=== PATIENT | female | born 1955 | race Caucasian/White ===

== ENCOUNTER → 2017-10-07 15:06 | Outpatient (CLI) | payer OTHER, SELFPAY ==
--- NOTE | 2017-10-07 | DI.MG.S_ITS ---
BILATERAL DIGITAL SCREENING MAMMOGRAM 3D/2D WITH CAD: 10/07/2017 CLINICAL: Routine screening. Family history of breast cancer. Comparison is made to exams dated: 09/11/2016 mammogram - [facility], 08/03/2015 mammogram, and 08/05/2014 mammogram - [facility]. There are scattered fibroglandular elements in both breasts. Current study was also evaluated with a Computer Aided Detection (CAD) system. No significant masses, calcifications, or other findings are seen in either breast. There has been no significant interval change. IMPRESSION: NEGATIVE There is no mammographic evidence of malignancy. A 1 year screening mammogram is recommended. This exam was interpreted at Station ID: [id number]. NOTE: For mammograms, a report in lay terms will be sent to the patient. Approximately 15% of breast malignancies will not be visualized mammographically. In the management of a palpable breast mass, a negative mammogram must not discourage biopsy of a clinically suspicious lesion. Electronically Signed By: Arun valiente/china:10/08/2017 14:35:24 letter sent: Normal Exam ACR BI-RADS Category 1: Negative [id number]
== END ==
PROVIDERS: Family Provider Family Medicine; PCP Family Medicine; Visit Provider Family Medicine
DX: Z12.31 Encounter for screening mammogram for malignant neoplasm of breast (principal); Z80.3 Family history of malignant neoplasm of breast
CPT/HCPCS: 77063; 77067

== ENCOUNTER → 2017-10-09 09:34 | Outpatient (CLI) | payer OTHER, SELFPAY ==
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
== END ==
PROVIDERS: Family Provider Neurological Surgery; PCP Family Medicine; Visit Provider Family Medicine
DX: M54.2 Cervicalgia (principal); M25.512 Pain in left shoulder; M25.511 Pain in right shoulder; M46.82 Other specified inflammatory spondylopathies, cervical region
CPT/HCPCS: 72141

== ENCOUNTER → 2018-05-04 06:54 | Outpatient (CLI) | payer OTHER, SELFPAY ==
[2018-05-04 08:40] LABS: Add Manual Diff / Slide Review NO; Basophils Absolute Auto 0 /uL (0-100); Basophils Percent Auto 0.8 % (0-2); Eosinophils Absolute Auto 100 /uL (0-450); Eosinophils Percent Auto 2.2 % (2-4); Hematocrit 40.6 % (36-46); Hemoglobin 13.3 g/dL (12.0-16.0); Lymphocytes Absolute Auto 2700 /uL (1100-4500); Lymphocytes Percent Auto 46.5 % (25-40); Mean Corpuscular HGB Conc 32.8 % (30-36); Mean Corpuscular Hemoglobin 30.6 PG (26-34); Mean Corpuscular Volume 93.1 fL (80-100); Monocytes Absolute Auto 400 /uL (0-900); Monocytes Percent Auto 6.4 % (3-14); Neutrophils Absolute Auto 2600 /uL (1500-7000); Neutrophils Percent Auto 44.1 % (50-75); Platelet Count 237 X10^3/uL (150-400); Red Blood Cell Count 4.36 X10^6/uL (4.0-5.2); Red Cell Distribution Width 12.5 % (11.6-14.8); White Blood Cell Count 5.9 X10^3/uL (4.5-11.0)
[2018-05-04 08:53] LABS: Alanine Aminotransferase 45 IU/L (9-52); Albumin 4.7 g/dL (3.5-5.0); Albumin Globulin Ratio 1.9 (1.0-2.8); Alkaline Phosphatase 45 U/L (38-126); Aspartate Aminotransferase 41 IU/L (14-36); BUN Creatinine Ratio 24.4 (6-22); Bilirubin Total 0.3 mg/dL (0.2-1.3); Blood Urea Nitrogen 22 mg/dL (7-17); Calcium 9.7 mg/dL (8.4-10.2); Carbon Dioxide 24 mmol/L (22-32); Chloride 104 mmol/L (98-107); Cholesterol 210 mg/dL (140-199); Estimated Glomerular Filt Rate > 60.0 mL/min (>60); Globulin 2.5 g/dL (1.7-4.1); Glucose 76 mg/dL (80-110); HDL Cholesterol 68 mg/dL (40-60); HEMOLYSIS < 15 (0-50); LDL Cholesterol Calculated 124 mg/dL (<100); Sodium 139 mmol/L (137-145); Total Protein 7.2 g/dL (6.3-8.2); Triglycerides 91 mg/dL (35-150)
== END ==
PROVIDERS: PCP Family Medicine; Visit Provider Family Medicine
DX: Z00.00 Encounter for general adult medical examination without abnormal findings (principal); Z13.220 Encounter for screening for lipoid disorders
CPT/HCPCS: 36415; 80053; 80061; 85025

== ENCOUNTER → 2018-10-13 10:46 | Outpatient (CLI) | payer OTHER, SELFPAY ==
--- NOTE | 2018-10-13 | DI.MG.S_ITS ---
BILATERAL DIGITAL SCREENING MAMMOGRAM 3D/2D WITH CAD: 10/13/2018 CLINICAL: Routine screening. Family history of breast cancer. Comparison is made to exams dated: 10/07/2017 mammogram, 09/11/2016 mammogram - [facility], and 08/03/2015 mammogram - [facility]. There are scattered fibroglandular elements in both breasts. Current study was also evaluated with a Computer Aided Detection (CAD) system. No significant masses, calcifications, or other findings are seen in either breast. There has been no significant interval change. IMPRESSION: NEGATIVE There is no mammographic evidence of malignancy. A 1 year screening mammogram is recommended. This exam was interpreted at Station ID: [id number]. NOTE: For mammograms, a report in lay terms will be sent to the patient. Approximately 15% of breast malignancies will not be visualized mammographically. In the management of a palpable breast mass, a negative mammogram must not discourage biopsy of a clinically suspicious lesion. Electronically Signed By: Marcie trevino/china:10/13/2018 11:58:29 letter sent: Normal Exam ACR BI-RADS Category 1: Negative [id number]
== END ==
PROVIDERS: PCP Family Medicine; Visit Provider Family Medicine
DX: Z12.31 Encounter for screening mammogram for malignant neoplasm of breast (principal); Z80.3 Family history of malignant neoplasm of breast
CPT/HCPCS: 77063; 77067

== ENCOUNTER → 2018-10-15 15:39 | Outpatient (CLI) | payer OTHER, SELFPAY ==
--- NOTE | 2018-10-15 15:44 | DI.RAD.S_ITS ---
PROCEDURE: XR SACRUM COCCYX MIN 2V INDICATIONS: pain TECHNIQUE: 3 views of the sacrum and coccyx acquired. COMPARISON: [facility], CR, XR LUMBAR SPINE 2-3V, 10/15/2018, 15:47. FINDINGS: Bones: No fractures or dislocations. No suspicious bony lesions. Symmetric moderate SI joint degeneration bilaterally. No ankylosis. Soft tissues: Visualized bowel gas pattern is normal. No suspicious soft tissue densities. IMPRESSION: 1. No acute bony abnormalities. 2. Moderate degenerative joint disease in sacroiliac joints bilaterally. Dictated by: Gi Elizabeth M.D. on 10/15/2018 at 16:51 Approved by: Gi Elizabeth M.D. on 10/15/2018 at 21:48
--- NOTE | 2018-10-15 15:44 | DI.RAD.S_ITS ---
PROCEDURE: XR LUMBAR SPINE 2-3V INDICATIONS: pain TECHNIQUE: 2 views of the lumbar spine were acquired. COMPARISON: None. FINDINGS: Bones: 5 [id number] vertebrae are present. There is normal bony alignment. No vertebral body compression fractures. No suspicious bony lesions. There is moderate facet arthropathy at L3-L4, L4-L5 and L5-S1. Soft tissues: Overlying bowel gas pattern is normal. No suspicious soft tissue calcifications. IMPRESSION: Moderate facet arthropathy in lower lumbar spine. Dictated by: Gi Elizabeth M.D. on 10/15/2018 at 16:51 Approved by: Gi Elizabeth M.D. on 10/15/2018 at 21:49
--- NOTE | 2018-10-15 15:44 | DI.RAD.S_ITS ---
PROCEDURE: XR HIP W PEL IF DONE RT 2V INDICATIONS: pain TECHNIQUE: 2 views of the hip were acquired. COMPARISON: None. FINDINGS: Bones: No fractures or dislocations. No suspicious bony lesions. The visualized pelvic ring appears intact. Soft tissues: No suspicious soft tissue calcifications or masses. IMPRESSION: Normal right hip. Dictated by: Gi Elizabeth M.D. on 10/15/2018 at 16:52 Approved by: Gi Elizabeth M.D. on 10/15/2018 at 21:50
== END ==
PROVIDERS: PCP Family Medicine; Visit Provider Nurse Practitioner
DX: M54.5 Low back pain (principal); M25.551 Pain in right hip; M47.898 Other spondylosis, sacral and sacrococcygeal region; M47.816 Spondylosis without myelopathy or radiculopathy, lumbar region; M47.817 Spondylosis without myelopathy or radiculopathy, lumbosacral region
CPT/HCPCS: 72100; 72220; 73502

== ENCOUNTER 2018-11-06 11:48 | Day surgery (SDC) | payer OTHER, SELFPAY ==
[2018-11-06] VITALS (8 sets, daily range): BP systolic 94–113; BP diastolic 59–75; PULSE 44–62; RESP 9–17; TEMP 36.2–36.5; O2SAT 88–100; BMI 21.7
[2018-11-06] MEDS: SODIUM CHLORIDE 0.9% 1,000 ML 200 ML IV (12:23)
--- NOTE | 2018-11-06 12:39 | PM.HP.1 ---
History of Present Illness Date Patient Seen: 11/06/18 Time Patient Seen: 12:40 Chief complaint: [id number] Narrative: Asymptomatic patient here for screening colonoscopy. 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) Abnormal Pap smear of cervix (Chronic ~1974) Chlamydia (Chronic ~1974) Fibroids (Chronic ~1989) Irregular menstrual cycle (Chronic ~1973) Neck pain (Chronic ~1991) Ovarian cyst (Chronic ~1974) Plantar warts (Chronic ~1976) Chicken pox (Resolved ~1964) Mumps (Resolved ~1964) Surgical History Anesthesia (Resolved) History of intestinal surgery (Resolved ~1996) History of tonsillectomy (~1976) Status post hysterectomy (~1996) Family History Brother Age: 74 Cancer Heart disease Father Diabetes mellitus Heart disease Hypertension High cholesterol Mother TB (tuberculosis) Grandfather Heart disease Social History marital status: occupational status: employed (Caregiver) Smoking Status: Never smoker second hand exposure: No alcohol intake: former (I quit in 1996.) substance use type: marijuana (I use a hemp oil tincture with a trace amount of marijuana in it.) Family & Social History Family History Brother Age: 74 Cancer Heart disease Father Diabetes mellitus Heart disease Hypertension High cholesterol Mother TB (tuberculosis) Grandfather Heart disease Tobacco & Substance use: Smoking Status Never smoker alcohol intake former Meds Home Medications Medication Instructions Recorded Confirmed Type trazodone 50 mg tablet 50 mg PO HS PRN #90 tab 06/30/18 11/06/18 Rx Hemp Oil Tincture See Rx Instructions .ROUTE .COMPLEX 10/15/18 11/06/18 History meloxicam 15 mg tablet 15 mg PO AMCC #90 tab 10/28/18 11/06/18 Rx acetaminophen [Tylenol Extra 1,000 mg PO PRN PRN MDD 1000 11/06/18 11/06/18 History Strength] Allergies Allergy/AdvReac Type Severity Reaction Status Date / Time codeine [CODEINE] AdvReac Intermediate Out of Verified 10/15/18 14:39 body experience Sulfa (Sulfonamide AdvReac Intermediate Out of Verified 10/15/18 14:39 Antibiotics) body [SULFA (SULFONAMIDE experience ANTIBIOTICS)] Review of Systems Review of Systems All systems reviewed & are unremarkable except as noted in HPI and below Exam Narrative Exam Narrative: Patient is alert and oriented Lungs are clear with no rales or wheezes Heart regular rhythm no murmur Abdomen soft nontender Rectal to be done at colonoscopy Assessment & Plan Assessment & Plan narrative: Asymptomatic lady here for screening colonoscopy she has no melena no hematochezia. She understands procedure has no further questions
[2018-11-06] MEDS: MIDAZOLAM 5 MG/5 ML VIAL IV ×2 (13:26→13:30)
[2018-11-06] MEDS: fentaNYL 250 MCG/5 ML INJ IV (13:26)
--- NOTE | 2018-11-06 13:41 | PM.OP.ENDO ---
Operative Date/Time/Diagnoses Date of procedure: 11/06/18 Time of procedure: 13:41 Pre-op diagnosis: Screening colonoscopy Post-op diagnosis: same Procedure & Clinicians Study performed: Total colonoscopy the cecum Same procedure as scheduled: Yes Indications: Screening Surgeon: Houston Wu Procedure Notes SCOAP/Timeout: Was done Procedure in detail: The patient was properly identified during surgical pause. She was given a total of 6 mg of Versed and 200 micro g of fentanyl throughout the procedure and remained comfortable. The flexible fiberoptic colonoscope inserted transanally to the cecum the patient has a normal colon. There are no polyps tumors or ulcerations no diverticuli. Procedure was well tolerated Scope withdrawal time: 8 Sedation minutes: 18 Specimen(s): none sent Impression: Normal colon Recommendations: Colonscopy in 10 years Disposition: PACU
--- NOTE | 2018-11-06 13:58 | SUR.PHASEI ---
reported off to Rui NORWOOD
== END 2018-11-06 14:35 | disposition home or self-care (01) ==
PROVIDERS: PCP Family Medicine; Visit Provider Surgery
PROC: 0DJD8ZZ Inspection of Lower Intestinal Tract, Via Natural or Artificial Opening Endoscopic (ICD-10-PCS; CPT 45378; principal; 2018-11-06 13:00)
DX: Z12.11 Encounter for screening for malignant neoplasm of colon (principal)
CPT/HCPCS: 45378; 99152; J2250; J3010

== ENCOUNTER → 2019-02-18 16:17 | Outpatient (CLI) | payer OTHER, SELFPAY ==
[2019-02-18 16:42] LABS: Add Manual Diff / Slide Review NO; Basophils Absolute Auto 100 /uL (0-100); Basophils Percent Auto 0.8 % (0-2); Eosinophils Absolute Auto 100 /uL (0-450); Eosinophils Percent Auto 1.1 % (2-4); Hematocrit 37.4 % (36-46); Hemoglobin 12.7 g/dL (12.0-16.0); Lymphocytes Absolute Auto 3100 /uL (1100-4500); Lymphocytes Percent Auto 38.9 % (25-40); Mean Corpuscular HGB Conc 33.9 % (30-36); Mean Corpuscular Hemoglobin 31.6 PG (26-34); Mean Corpuscular Volume 93.2 fL (80-100); Monocytes Absolute Auto 500 /uL (0-900); Monocytes Percent Auto 5.8 % (3-14); Neutrophils Absolute Auto 4300 /uL (1500-7000); Neutrophils Percent Auto 53.4 % (50-75); Platelet Count 233 X10^3/uL (150-400); Red Blood Cell Count 4.01 X10^6/uL (4.0-5.2); Red Cell Distribution Width 12.6 % (11.6-14.8)
[2019-02-18 17:21] LABS: Blood Urea Nitrogen 18 mg/dL (7-17); Calcium 9.8 mg/dL (8.4-10.2); Carbon Dioxide 24 mmol/L (22-32); Chloride 104 mmol/L (98-107); Cholesterol 221 mg/dL (140-199); Glucose 84 mg/dL (80-110); HDL Cholesterol 67 mg/dL (40-60); HEMOLYSIS < 15 (0-50); LDL Cholesterol Calculated 128 mg/dL (<100); Potassium 4.3 mmol/L (3.4-5.1); Sodium 137 mmol/L (137-145); Triglycerides 128 mg/dL (35-150)
[2019-02-18 17:51] LABS: Thyroid Stimulating Hormone 2.31 uIU/mL (0.47-4.68)
== END ==
PROVIDERS: PCP Family Medicine; Visit Provider Orthopaedic Surgery Orthopaedic Surgery of the Spine
DX: Z01.818 Encounter for other preprocedural examination (principal); Z01.812 Encounter for preprocedural laboratory examination; E78.5 Hyperlipidemia, unspecified; N28.9 Disorder of kidney and ureter, unspecified; Z13.29 Encounter for screening for other suspected endocrine disorder
CPT/HCPCS: 36415; 80048; 80061; 84443; 85025; 93005

== ENCOUNTER 2019-05-07 06:08 | Inpatient (IN) | payer OTHER, SELFPAY ==
[2019-04-26 13:45] VITALS: BMI 21.1
[2019-05-07] VITALS (17 sets, daily range): BP systolic 92–130; BP diastolic 46–74; PULSE 60–88; RESP 12–20; TEMP 36.4–37.3; O2SAT 96–100; BMI 22.6
--- NOTE | 2019-05-07 | DI.RAD.S_ITS ---
PROCEDURE: XR LUMBAR SPINE 2-3V INDICATIONS: L5-S1 TLIF TECHNIQUE: 2 views of the lumbar spine were acquired. COMPARISON: [facility], RF, LUMBAR MBB, 01/27/2019, 8:17. [facility], RF, LUMBAR FACET, 11/23/2018, 7:46. [facility], MR, MR LUMBAR SPINE WITHOUT CONTRAST, 11/05/2018, 10:26. [facility], CR, XR LUMBAR SPINE 2-3V, 10/15/2018, 15:47. FINDINGS: Bones: Normal alignment is established by placement of bilateral transverse pedicle screws and vertical fixation rods crossing L5-S1, with interbody cage disc prostheses centrally positioned. Soft tissues: Overlying bowel gas pattern is normal. No suspicious soft tissue calcifications. IMPRESSION: Normal alignment established after posterior fusion. No evidence of device malalignment. Dictated by: Raudel Snyder M.D. on 05/07/2019 at 10:44 Approved by: Raudel Synder M.D. on 05/07/2019 at 10:45
[2019-05-07] MEDS: LACTATED RINGERS 1,000 ML 42 ML IV ×2 (07:34→09:18)
[2019-05-07] MEDS: MIDAZOLAM 2 MG/2 ML VIAL IV (07:50)
--- NOTE | 2019-05-07 07:51 | PM.PREOP ---
Pre-operative Note Interval Note History & Physical reviewed/Exam performed by Physician: Yes Changes to H&P: No
[2019-05-07] MEDS: CEFAZOLIN 2 GM/100 ML FROZ.PIGGY IV (07:55)
--- NOTE | 2019-05-07 08:26 | SUR.OPER ---
Prone on spine table, head in foam head support, padded chest and pelvic supports, gel pad at knees, lower legs supported by pillows; nipples, genitalia and toes free of pressure, arms secured on foam padded arm boards at <90 degrees abduction. Tape over blanket at thigh secured to table.
[2019-05-07] MEDS: BUPIVACAINE LIPOSOME 266 MG/20 ML VIAL INJ (08:38)
[2019-05-07] MEDS: BUPIVACAINE 0.25% W/ EPI (PF) 10 ML VIAL 30 ML INJ (08:38)
[2019-05-07] MEDS: ACETAMINOPHEN IV 1,000 MG/100 ML VIAL 400 MG IV (09:45)
--- NOTE | 2019-05-07 10:12 | PM.OP.1 ---
Operative Date/Time/Diagnoses Date of procedure: 05/07/19 Time of procedure: 07:44 Pre-op diagnosis: 1. L5-S1 spinal stenosis. 2. L5-S1 disc disease with radiculopathy Post-op diagnosis: same Procedure & Clinicians Procedure: 1. L5-S1 Postero-lateral and posterior interbody fusion 2. L5-S1 interbody cage placement. 3. L5-S1 decompressive laminectomy with bilateral facetecomies 4. L5-S1 Posterior non-segmental instrumentation 5. Mcwilliams of bone marrow from iliac crest 6. Utilization of microsurgical technique and operating microscope Same procedure as scheduled: Yes Indications: Patient has been having chronic back pain and worsening lumbar radiculopathy. Patient failed multiple conservative management with worsening pain weakness and numbness in her lower extremity. Patient has been having difficulty performing activity of daily living. After discussing risks benefits of treatment options, patient elected proceed with surgery. Surgeon: Andrea Wyman Chief Security And Safety Officer: Sonal Fragoso'Brien Click Yes if Unassisted: No Anesthesia Type: General Operative Notes Closure Type: primary Specimen(s): none sent Prosthetic devices, grafts, tissues, transplants, or devices: Globus revolve screws, Rise cage Estimated Blood Loss (mL): 40 Blood products transfused: none Procedure in detail: Patient was seen in the preoperative area. Risks and benefits of the surgery was discussed with the patient. Informed consent was obtained from the patient and placed in the chart. Surgical site was marked. Patient was taken to the operative room. General anesthesia was administered. Prophylactic antibiotic was given to the patient less than 30 min before the incision was made. Patient was placed into a prone position on the Daren table. Patient's back was then prepped and draped in the sterile fashion. Time-out was performed at this time. Using AP and lateral C-arm imaging the interval between L5-S1 was identified and marked on patient's back. A 2 inch incision 2 in from midline was made on the right side first. The fascia was incised in line with skin incision. Globus MARS retractors was placed inside the incision and docked onto the L5 lamina. Using microsurgical technique and operating microscope, a L5 laminectomy and L5-S1 facetectomy was performed using a Kerrison rongeur. Patient was found have severe neural foramen stenosis which was fully decompressed after the laminectomy facetectomy was completed. The disc space at L5-S1 was identified. And a total diskectomy was performed at L5-S1 level. The endplates were decorticated using a rasp and shaver. The total diskectomy and decortication was performed at L5-S1 level in order to to accomplish a L5-S1 fusion. The local bone from the laminectomy and facetectomy was saved for local bone grafting. After the total diskectomy and decortication was completed, Bio4 bone graft material was combined with local bone that was harvested earlier. At this time, a separate skin is incision was made over the iliac crest. A Jamshidi needle was inserted into the iliac crest through a separate skin incision. 5 cc of bone marrow aspiration was obtained through the separate skin incision using a Jamshidi needle from the iliac crest. The bone marrow aspiration was combined with local bone and the Bio4 bone grafting material. The bone grafting material was placed into the L5-S1 interbody space along with a expandable cage. The cage was expanded to its maximum height using the torque limiting screwdriver. At this time a mirror image incision was made on the left side. The fascia was incised in line with the skin incision. Globus MARS retractor was inserted and docked onto the L5-S1 posterolateral gutter. Using the power drill, posterior-lateral decortication was performed at L5-S1 level until bleeding cortical bone was identified. The remaining bone grafting material was placed into the L5-S1 posterior lateral gutter he order to accomplish posterolateral fusion at the L5-S1 level. Using the double C-arm technique, pedicle screws were placed into the L5-S1 pedicles bilaterally. This was done by placing the Jamshidi needle into the pedicles, then placing the guidewires over the Jamshidi needle, and finally placing the cannulated screws over the guidewires bilaterally. After the pedicle screws were placed, 2 titanium rods was locked into the heads of the pedicle screws using locking caps and torque limiting screwdriver. After all the hardware was placed, and confirmed with AP and lateral C-arm imaging, the wound was then irrigated with sterile normal saline and packed with Ray-Travis gauze for 3 min to accomplish hemostasis. After the gauze was removed the deep fascia was closed with #1 Vicryl suture. The subcutaneous layer was closed with 2-0 Vicryl. The skin was closed with skin steve. Patient tolerated the procedure well. There were no complications. Complications: none Post-operative Condition: stable Disposition: PACU Plan for aftercare: Admit to inpatient hospital
[2019-05-07] MEDS: MORPHINE 10 MG/ML INJ IM ×2 (10:25→10:35)
[2019-05-07] MEDS: hydrOXYzine 50 MG/ML INJ 25 MG IM (10:53)
[2019-05-07] MEDS: fentaNYL 100 MCG/2 ML INJ IV (10:57)
--- NOTE | 2019-05-07 11:11 | SUR.PHASEI ---
report given to Renata Snyder RN .
--- NOTE | 2019-05-07 11:13 | SUR.PHASEI ---
Assumed care of pt at present time.
--- NOTE | 2019-05-07 12:00 | PT.IIE ---
Current Diagnoses Other spondylosis with radiculopathy, lumbosacral region (05/07/19) Intervertebral disc disorders with radiculopathy, lumbar region (05/07/19) Surgery Performed Operation Date: 05/07/19 07:45 Actual Procedures p L5-S1 TLIF - Andrea Wyman MD Surgical History (Last Reviewed 04/25/19 @ 15:19 by Kathleen Winkler DO) Anesthesia (Resolved) History of intestinal surgery (Resolved ~1996) History of tonsillectomy (~1976) Status post hysterectomy (~1996) Medical History (Last Updated 04/26/19 @ 14:12 by Ksenia Walton RN) Abnormal Pap smear of cervix (Chronic ~1974) Basal cell carcinoma (BCC) (Resolved) Chicken pox (Resolved ~1964) Chlamydia (Chronic ~1974) Degenerative disc disease (Acute) 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) Depression (Acute) Easy bruisability (Acute) Fibroids (Chronic ~1989) Generalized anxiety disorder (Chronic 05/10/16) Hypotension (Acute) Irregular menstrual cycle (Chronic ~1973) Mumps (Resolved ~1964) Neck pain (Chronic ~1991) Osteoarthritis of cervical spine (Chronic 11/15/16) Ovarian cyst (Chronic ~1974) Plantar warts (Chronic ~1976) Reactive depression (Resolved 05/10/16) Physical Therapy Inpatient Evaluation/Re-Eval M1 PT/OT-IP Prior Functional Status Start: 05/07/19 12:29 Freq: NEEDED Status: Active Protocol: Document 05/07/19 12:00 AB (Rec: 05/07/19 12:38 AB [id number]) Medical Review Prior Functional Status Medical History Reviewed Yes Communication able to make needs known Mobility and Gait pt stated that she is independent with all mobilities and ambulation without AD Social History Household Members none Living Arrangements House Number of Floors (Floors) One Floor Number of Stairs To Enter/Railing? 3 steps with bilateral wide rails to enter and can only hold on to one rail at a time Home Environment Standard Height Toilet,Walk in Shower Home Equipment Front Wheel Walker,Raised Toilet Seat Without Armrests Additional Social History Comment stated that her boyfriend will assist her at home M2 PT-IP Current Condition Start: 05/07/19 12:29 Freq: NEEDED Status: Active Protocol: Document 05/07/19 12:00 AB (Rec: 05/07/19 12:38 AB [id number]) Physical Therapy Current Condition Current Condition Evaluation Date 05/07/19 Treatment Diagnosis s/p L5S1 posterior fusion/lami ; difficulty in walking Onset Date 05/07/18 Precautions Lumbar Precautions Log Roll,No Twisting,Limit Bending,Lifting Restriction of 10 lbs,Gait Belt above Incisional Area M3 PT-IP Subjective Start: 05/07/19 12:29 Freq: NEEDED Status: Active Protocol: Document 05/07/19 12:00 AB (Rec: 05/07/19 12:38 AB [id number]) Subjective Physical Therapy Visit Type Type Initial Evaluation Visit Start Time 12:00 Visit Stop Time 12:29 Total Visit Minutes 29 Number of TRUCK SHOP MECHANIC Visits 0 Physical Therapy Visit Comments Patient Comments pt requesting to use the toilet Therapy Pain Assessment Pain When Pain Assessed At Rest Pain Present Pain Present Pain Reported Location Lower Back Intensity 8 Scale Used Numeric (1 - 10) Pain Management Techniques Apply Cold,Re-positioning, Timing of Activity with Medications M4 PT-IP Mobility and Gait Start: 05/07/19 12:29 Freq: NEEDED Status: Active Protocol: Document 05/07/19 12:00 AB (Rec: 05/07/19 12:38 AB [id number]) PT-Bed Mobility Assessment Rolling Type of Rolling Log Rolling Level of Assist Standby Assistance Supine to Sit Supine to Sit Standby Assistance Scooting Scooting to Edge of Bed Standby Assistance PT-Transfer Assessment Sit to and From Stand Sit to and from Stand Minimal Assistance Equipment Transfer Assistive Device Gait Belt,Front Wheeled Walker Orthotic/Prosthetic Devices or Brace: No Transfers Transfer Destination Toilet Transfer Technique ambulated using FWW Transfer Ability Level of Assist Minimal Assistance Comments Mobility Comments educated pt regarding back precautions and log roll bed mobility. completed supine to sit SBA with cues for techniques. pt was able to sit on EOB SBA. completed sit to stand min A and cues and ambulated to the toilet using FWW ~ 15 ft requiring min A and cues. required min A and use of grab bar for controlled descent to the toilet. completed sit to stand min A and use of grab bar from the toilet. ambulated using FWW towards the sink min A and cues and was able to maintain standing CGA to min A while completing handwashing. pt agreed to sit up on chair for lunch and ambulated towards the chair using FWW min A and cues. positioned pt on chair. call light and table positioned next to pt. Gait Assessment Gait Gait Assistance Required: Minimum Assistance Distance (Feet) 15 Able to Maintain Weight Bearing Status Yes During Gait Assistive Devices Assistive Device Gait Belt,Front Wheeled Walker Orthotic/Prosthetic Devices or Brace: No Gait Deviations General Gait Pattern Antalgic,Decreased Stride Length,Decreased Feet Clearance Factors Limiting Gait Function Factors Limiting Gait Function Decreased Activity Tolerance, Decreased Strength,Limited Range of Motion,Pain,Poor Balance,Poor Safety Awareness Comments Gait Comments pls refer to mobility section for details M5 PT-IP Objective Assessments Start: 05/07/19 12:29 Freq: NEEDED Status: Active Protocol: Document 05/07/19 12:00 AB (Rec: 05/07/19 12:38 AB [id number]) Orientation Orientation/Cognition Level of Alertness Alert Orientation Name,Place,Situation Safety Awareness Decreased Safety Awareness Memory Description Short Term Impaired Comments pt stated that she is drowsy and unable to answer some questions regarding home set up. Gross Range of Motion Lower Extremity ROM Assessment Within Functional Limits Strength Lower Extremity Strength Assessment Within Functional Limits Coordination Assessment Gross Coordination Gross Coordination WNL Sensation Assessment Sensation Gross Sensation WNL Muscle Tone Muscle Tone WNL Yes M6 PT-IP Treatment Start: 05/07/19 12:29 Freq: NEEDED Status: Active Protocol: Document 05/07/19 12:00 AB (Rec: 05/07/19 12:38 AB [id number]) Physical Therapy Treatment Education Education Provided Precautions,Weight Bearing Status,Post-Op Packet,Safety M7 PT-IP Assessment and Plan Start: 05/07/19 12:29 Freq: NEEDED Status: Active Protocol: Document 05/07/19 12:00 AB (Rec: 05/07/19 12:38 AB [id number]) PT Summary Assessment and Plan Potential Rehabilitation Potential Good Status of Condition at Evaluation Stable Summary Impairments Pain,ROM,Strength,Balance, Coordination,Sensation,Tone, Cognition,Bed Mobility, Transfers,Gait,Activity Tolerance Assessment Summary pt requiring min A with mobility and will likely progress during hospital stay. pt will have her boyfriend assist her at home. pt just had surgery this morning and will continue to assess progress. Goals Bed Mobility Goal Independent Transfer Goal Independent,Front Wheeled Walker Gait Goal Independent,Front Wheel Walker Gait Distance 150 Other Goals up/down 3 steps 1 rail SBA Days to Meet Goals 5 Frequency of Treatment Frequency Of Treatment Twice a Day Treatment Plan Physical Therapy Treatment Plan Bed Mobility Training,Transfer Training,Gait Training, Therapeutic Exercise,Balance Retraining,Post Op Education, Discharge Planning,Hot or Cold Pack,Neuromuscular Re-ed, Coordination Retraining,Manual Therapy Recommendations To Nursing Amount of Assist Needed 1 Person Assist Discharge Recommendations PT Discharge Recommendations Home with Assistance
[2019-05-07] MEDS: SODIUM CHLORIDE 0.9% 1,000 ML 100 ML IV ×2 (12:11→22:36)
[2019-05-07] MEDS: OXYCODONE IR 5 MG TABLET PO ×3 (12:12→22:35)
[2019-05-07] MEDS: MORPHINE 2 MG/ML INJ 1 MG IV ×4 (13:28→21:19)
--- NOTE | 2019-05-07 14:09 | CM.IDA ---
Discharge Planning/Care Management CM Discharge Assessment Start: 05/07/19 14:01 Freq: Status: Active Protocol: Document 05/07/19 14:02 JW (Rec: 05/07/19 14:08 JW [id number]) Discharge Planning Assessment Assigned Metal Can Inspector LASHAE Jarrett DPOA/Assigned Designee Name Jhon Suarez, partner Contact Information [phone] Advance Directives? Yes Advance Directives on File No History Provided By Patient,Significant Other, Medical Record Prior Living Arrangements House Household Members none Type of transporation used prior to Drives own vehicle admit Independent with ADL's Yes Is patient alert and oriented? Yes Barriers to Discharge No Comment Pt had spinal surgery today w/ Dr Wyman. PCP: Kathleen Winkler Payer: Emil Reviewed chart. PT has done initial eval already and home w/assistance from boyfriend has been recommended. This BABBITT SPINNER will plan to complete further assessment of DC needs POD#1 LASHAE Nunn Discharge Plan Home Transportation Arrangement S.O. Referrals Initiated None needed Additional Comment At this time Pre-Anesthesia Assessment Start: 04/26/19 13:45 Freq: Status: Active Protocol: Document 04/26/19 13:45 CAB (Rec: 04/26/19 14:36 CAB [id number]) Pre-Anesthesia Assessment Information Health Care Proxy/Next of Kin Cassie (nisondra) Jhon (S.O.) Health Care Proxy Phone Number Cassie: Jhon: [phone] Emergency Contact Name Cassie (nisondra) Jhon (S.O.) Emergency Contact Phone Number Cassie: Jhon: [phone] Advance Directives? Yes Advance Directives on File No Requested Patient Bring Advanced Yes Directives DOS Power of Women'S Studies Lecturer Yes Power of Women'S Studies Lecturer Name Yoel Teran (Cousin) Power of Women'S Studies Lecturer PAC Instructions Durable medical equipment, Medications to take/avoid, Nasal antibiotic,No ETOH/ petroleum product on skin DOS, NPO,Post-op transportation,Pre -op antibiotic,Sturdy shoes/ comfortable clothes
[2019-05-07] MEDS: CEFAZOLIN 1 GM/50 ML FROZ.PIGGY IV (15:50)
[2019-05-07] MEDS: DOCUSATE 100 MG CAPSULE PO (21:19)
[2019-05-08] MEDS: OXYCODONE IR 5 MG TABLET PO ×4 (01:37→23:04)
[2019-05-08] MEDS: CEFAZOLIN 1 GM/50 ML FROZ.PIGGY IV (01:38)
[2019-05-08] MEDS: hydrOXYzine pamoate 25 MG CAPSULE PO ×5 (01:40→21:20)
[2019-05-08] MEDS: MORPHINE 2 MG/ML INJ 1 MG IV ×2 (03:26→06:11)
[2019-05-08 04:15] VITALS: BP 111/73; PULSE 68; RESP 16; TEMP 36.5; O2SAT 100
[2019-05-08] MEDS: DOCUSATE 100 MG CAPSULE PO ×2 (08:28→20:08)
[2019-05-08] MEDS: ACETAMINOPHEN 325 MG TABLET 650 MG PO ×3 (08:28→21:20)
[2019-05-08 09:30] VITALS: BP 115/63; PULSE 65; RESP 16; TEMP 36.4; O2SAT 100
--- NOTE | 2019-05-08 09:53 | PT.IPTN ---
Current Diagnoses Other spondylosis with radiculopathy, lumbosacral region (05/07/19) Intervertebral disc disorders with radiculopathy, lumbar region (05/07/19) Surgery Performed Operation Date: 05/07/19 07:45 Actual Procedures p L5-S1 TLIF - Andrea Wyman MD Physical Therapy Treatment Note M2 PT-IP Current Condition Start: 05/07/19 12:29 Freq: NEEDED Status: Active Protocol: Document 05/07/19 12:00 AB (Rec: 05/07/19 12:38 AB [id number]) Physical Therapy Current Condition Current Condition Evaluation Date 05/07/19 Treatment Diagnosis s/p L5S1 posterior fusion/lami ; difficulty in walking Onset Date 05/07/18 Precautions Lumbar Precautions Log Roll,No Twisting,Limit Bending,Lifting Restriction of 10 lbs,Gait Belt above Incisional Area M3 PT-IP Subjective Start: 05/07/19 12:29 Freq: NEEDED Status: Active Protocol: Document 05/08/19 09:53 AB (Rec: 05/08/19 12:03 AB [id number]) Subjective Physical Therapy Visit Type Type Treatment Note Visit Start Time 09:53 Visit Stop Time 10:21 Total Visit Minutes 28 Number of PARENT COACH Visits 0 Physical Therapy Visit Comments Patient Comments pt agreeable to do PT Therapy Pain Assessment Pain When Pain Assessed At Rest Pain Present Pain Present Pain Reported Location Lower Back Intensity 8 Scale Used Numeric (1 - 10) Pain Management Techniques Modification of Treatment,Re- positioning,Timing of Activity with Medications M4 PT-IP Mobility and Gait Start: 05/07/19 12:29 Freq: NEEDED Status: Active Protocol: Document 05/08/19 09:53 AB (Rec: 05/08/19 12:03 AB [id number]) PT-Bed Mobility Assessment Supine to Sit Supine to Sit Standby Assistance Sit to Supine Sit to Supine Standby Assistance Scooting Scooting to Edge of Bed Standby Assistance PT-Transfer Assessment Sit to and From Stand Sit to and from Stand Moderate Assistance,1 Person Assistance,Use of Upper Extremities Equipment Transfer Assistive Device Gait Belt,Front Wheeled Walker Orthotic/Prosthetic Devices or Brace: No Comments Mobility Comments pt supine to sit SBA and cues for techniques. pt completed sit to stand mod A and cues. completed sit <>stand x 3 reps and cues for techniques. attempted with pt pushing with B LE on EOB and pt unable to stand. attempted with L hand on FWW and completed mod A and cues. pt ambulated to the toilet SBA using FWW. completed toileting and ambulated out of the toilet SBA using FWW. pt was able to maintain standing SBA while completing handwashing. pt ambulated in the hallway ~ 200 ft using FWW SBA. pt requested to go back to bed. prior to lying down on bed, pt completed sit <>stand x 3 reps pushing with B hands from EOB CGA and cues. completed sit to supine SBA. positioned pt in bed. call light and table placed within reach. Gait Assessment Gait Gait Assistance Required: Standby Assistance Distance (Feet) 200 Able to Maintain Weight Bearing Status Yes During Gait Assistive Devices Assistive Device Gait Belt,Front Wheeled Walker Orthotic/Prosthetic Devices or Brace: No Gait Deviations General Gait Pattern Antalgic,Decreased Stride Length,Decreased Feet Clearance Factors Limiting Gait Function Factors Limiting Gait Function Decreased Activity Tolerance, Decreased Strength,Limited Range of Motion,Pain,Poor Balance,Poor Safety Awareness Comments Gait Comments pls refer to mobility section for details M5 PT-IP Objective Assessments Start: 05/07/19 12:29 Freq: NEEDED Status: Active Protocol: Document 05/07/19 12:00 AB (Rec: 05/07/19 12:38 AB [id number]) Orientation Orientation/Cognition Level of Alertness Alert Orientation Name,Place,Situation Safety Awareness Decreased Safety Awareness Memory Description Short Term Impaired Comments pt stated that she is drowsy and unable to answer some questions regarding home set up. Gross Range of Motion Lower Extremity ROM Assessment Within Functional Limits Strength Lower Extremity Strength Assessment Within Functional Limits Coordination Assessment Gross Coordination Gross Coordination WNL Sensation Assessment Sensation Gross Sensation WNL Muscle Tone Muscle Tone WNL Yes M6 PT-IP Treatment Start: 05/07/19 12:29 Freq: NEEDED Status: Active Protocol: Document 05/08/19 09:53 AB (Rec: 05/08/19 12:03 AB [id number]) Physical Therapy Treatment Education Education Provided Precautions,Safety M7 PT-IP Assessment and Plan Start: 05/07/19 12:29 Freq: NEEDED Status: Active Protocol: Document 05/08/19 09:53 AB (Rec: 05/08/19 12:03 AB [id number]) PT Summary Assessment and Plan Potential Rehabilitation Potential Good Summary Impairments Pain,ROM,Strength,Balance, Coordination,Cognition,Bed Mobility,Transfers,Gait, Activity Tolerance Progress Towards Goals Slow Progress due to Pain Assessment Summary pt requiring SBA with ambulation but is not consistent with level of assist with sit to stand. pt. plans to go home with her boyfriend to assist her. caregiver training will be conducted when appropriate and also has to complete stair climbing training prior to d/c . Goals Bed Mobility Goal Independent Transfer Goal Independent,Front Wheeled Walker Gait Goal Independent,Front Wheel Walker Gait Distance 150 Other Goals up/down 3 steps 1 rail SBA Days to Meet Goals 5 Frequency of Treatment Frequency Of Treatment Twice a Day Treatment Plan Physical Therapy Treatment Plan Bed Mobility Training,Transfer Training,Gait Training, Therapeutic Exercise,Balance Retraining,Post Op Education, Discharge Planning,Hot or Cold Pack,Neuromuscular Re-ed, Coordination Retraining,Manual Therapy Recommendations To Nursing Amount of Assist Needed 1 Person Assist Discharge Recommendations PT Discharge Recommendations Home with Assistance
[2019-05-08] MEDS: OXYCODONE IR 10 MG TABLET PO ×3 (10:35→16:38)
--- NOTE | 2019-05-08 10:45 | PM.PNPO.1 ---
Subjective Subjective Date Patient Seen: 05/08/19 Time Patient Seen: 10:46 Interval history: Patient is POD # 1 s/p L5-S1 TLIF with Dr. Wyman. Pain moderate to severe overnight. Did note some relief with Oxycodone and Vistaril. States morphine interfered with her mentation. Hs not mobilized with PT yet but has mobilized about the room to toilet. No chest pain or shortness of breath. No nausea or vomiting. Exam Vital Signs (past 8 hours): - 05/08/19 04:15 05/08/19 09:30 Temperature 97.7 F 97.6 F Pulse Rate 68 65 Respiratory Rate 16 16 Blood Pressure 111/73 115/63 Pulse Oximetry 100 100 Oxygen Delivery Method Room Air Oxygen Flow Rate 0 Narrative Exam Narrative: 63 year old female resting in bed. Alert and oriented in no acute distress. Dressing is CDI. /5 in BLE. Sensation intact to light touch. Calves soft, compressible. Palpable pedal pulse. Assessment & Plan Post-op Postoperative Procedures: Procedures Operation Date: 05/07/19 07:45 Actual Procedures Side Surgeon p L5-S1 TLIF Andrea Wyman MD Patient is to mobilize with PT later today. Oxycodone 10mg added for improved pain control. She has tolerated 5mg well. Will avoid IV MS if possible. SCDs for DVT prophylaxis. Dressing changed to coversite. Possible discharge to home later today or tomorrow pending PT and improved pain control.
--- NOTE | 2019-05-08 11:44 | OT.IP.EVAL ---
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) Depression (Acute) Easy bruisability (Acute) Fibroids (Chronic ~1989) Generalized anxiety disorder (Chronic 05/10/16) Hypotension (Acute) Irregular menstrual cycle (Chronic ~1973) Mumps (Resolved ~1964) Neck pain (Chronic ~1991) Osteoarthritis of cervical spine (Chronic 11/15/16) Ovarian cyst (Chronic ~1974) Plantar warts (Chronic ~1976) Reactive depression (Resolved 05/10/16) Surgical History (Last Reviewed 04/25/19 @ 15:19 by Kathleen Winkler DO) Anesthesia (Resolved) History of intestinal surgery (Resolved ~1996) History of tonsillectomy (~1976) Status post hysterectomy (~1996) Occupational Therapy Inpatient Evaluation/Re-Eval M1 PT/OT-IP Prior Functional Status Start: 05/07/19 12:29 Freq: NEEDED Status: Active Protocol: Document 05/08/19 13:35 CGR (Rec: 05/08/19 13:52 CGR [email or web address]) Medical Review Prior Functional Status Medical History Reviewed Yes Communication able to make needs known Mobility and Gait pt stated that she is independent with all mobilities and ambulation without AD Activities of Daily Living and IADL's Pt was IND in all ADLs Prior Functional Level (Other details) Pt swam 3 x a week. Social History Household Members none Living Arrangements House Number of Floors (Floors) One Floor Number of Stairs To Enter/Railing? 3 steps with B rails that are wide Home Environment Standard Height Toilet,Walk in Shower Home Equipment Front Wheel Walker,Quad Cane, Manual Wheelchair,Raised Toilet Seat w/Armrests,Long Handled Shoe Horn,Oil Laboratory Analyst,Sock Aid Employment Status Retired Additional Social History Comment Pt's BF will be staying with pt during recovery. M2 OT-IP Current Condition Start: 05/08/19 13:34 Freq: Status: Active Protocol: Document 05/08/19 13:35 CGR (Rec: 05/08/19 13:52 CGR [email or web address]) Occupational Therapy Current Condition Current Condition Evaluation Date 05/08/19 Treatment Diagnosis L5-S1 TLIF Diagnosis Onset Date 05/07/19 Post Operative Precautions Lumbar Precautions Log Roll,No Twisting,Limit Bending,Lifting Restriction of 10 lbs,Gait Belt above Incisional Area M3 OT- IP Subjective and Pain Start: 05/08/19 13:34 Freq: Status: Active Protocol: Document 05/08/19 13:35 CGR (Rec: 05/08/19 13:52 CGR [email or web address]) OT- Subjective Occupational Therapy Visit Type Type Initial Evaluation Visit Start Time 10:51 Visit Stop Time 11:44 Total Visit Minutes 53 OT Pain Assessment Pain When Pain Assessed At Rest Pain Present Pain Present Pain Reported Location Lower Back Intensity 7 Scale Used Numeric (1 - 10) Management Techniques Modification of Treatment M4 OT- IP ADL's Start: 05/08/19 13:34 Freq: Status: Active Protocol: Document 05/08/19 13:35 CGR (Rec: 05/08/19 13:52 CGR [email or web address]) OT GIQ-Nsoo-Whewtvl Comments OT Self-Feeding Comments Not meal time OT ADL-Grooming General Evaluation Grooming Ability Standby Assistance Areas Needing Assistance Retrieving/Set-up of Grooming Items,Face Washing Comments OT Grooming Comments standing at sink OT ADL-Oral Care General Eval Oral Care Ability Standby Assistance Areas of Assistance Brushing Teeth Comments Oral Care Comments standing at sink OT ADL-Dressing General Eval Upper Body Dressing Ability Independent Lower Body Dressing Ability Standby Assistance Areas Needing Assistance Underpants/Brief,Socks Assistive Devices Dressing Assistive Devices Long Handled Shoe Horn,Oil Laboratory Analyst ,Sock Aid Comments OT Dressing Comments Pt donned and doffed socks and underwear using DME after instruction. OT ADL-Toileting General Evaluation Toileting Ability Standby Assistance Devices Toileting Assistive Devices Grab Bars OT ADL-Bathing Comments OT Bathing Comments Not performed in this session. M5 OT- IP IADL's Start: 05/08/19 13:34 Freq: Status: Active Protocol: Document 05/08/19 13:35 CGR (Rec: 05/08/19 13:52 CGR [email or web address]) OT-Instrumental Activities of Daily Living Deficits IADL Deficits Identified No Deficits Home Safety Awareness Awareness of Need for Assistance at Home Good Awareness Ability to Problem Solve Emergency Able to Problem Solve Situations Medication Management Medication Management No Deficits Identified Money Management Money Management No Deficits Identified Meal Preparation Meal Preparation No Deficits Identified Sample Dye Mixer Sample Dye Mixer Caregiver Provides Assist Driving Driving Caregiver Provides Assist M6 OT- IP Functional Cognition Start: 05/08/19 13:34 Freq: Status: Active Protocol: Document 05/08/19 13:35 CGR (Rec: 05/08/19 13:52 CGR [email or web address]) Cognitive Factors Limiting Selfcare Function Cognitive Ability Level of Alertness Alert Patient Orientation Name,Age,Birthday,Month,Date, Year,Day of Week,Place, Situation Attention Span Ability Capable of Focused Attention, Capable of Sustained Attention Ability to Follow Commands Able to Follow Multi-Step Commands Memory Description No Deficits Noted Safety Awareness No Deficits Noted Problem Solving Ability No deficits Noted Executive Function Ability No Deficits Noted Abstract Thinking Ability No Deficits Noted OT- Vision and Hearing OT- Hearing Assessment OT- Hearing Assessment WFL OT- Vision Assessment Visual Acuity Glasses All The Time Visual Attentiveness WFL Occular Pursuits WFL Visual Convergence WFL Visual Grimes WFL M7 OT- IP Mobility and Balance Start: 05/08/19 13:34 Freq: Status: Active Protocol: Document 05/08/19 13:35 CGR (Rec: 05/08/19 13:52 CGR [email or web address]) OT- Bed Mobility Assessment Rolling Type of Rolling Log Rolling,Roll to Right Level of Assistance Standby Assistance Supine to Sit Supine to Sit Assist Standby Assistance Sit to Supine Sit to Supine Assist Standby Assistance Scooting Scooting to Edge of Bed Standby Assistance OT-Transfer Assessment Sit to and From Stand Sit to and from Stand Contact Guard Assistance Transfers Transfer Ability Contact Guard Assistance Technique Transfer Destination Bed,Toilet Transfer Technique Stand Step Pivot Devices Transfer Assistive Devices Gait Belt,Front Wheeled Walker Comments Mobility Comments Mobility around the room and up to bathroom. OT- Balance Assessment Sitting Balance and Reactions Static Sitting Balance Ability Good Dynamic Sitting Balance Ability Good Standing Balance and Reactions Static Standing Balance Ability Good Dynamic Standing Balance Ability Good M8 OT- IP Objective Assessments Start: 05/08/19 13:34 Freq: Status: Active Protocol: Document 05/08/19 13:35 CGR (Rec: 05/08/19 13:52 CGR [email or web address]) OT Gross Range of Motion Upper Extremity Range of Motion Assessment Within Functional Limits OT Strength Upper Extremity Strength Assessment Within Functional Limits Comments Strength Comments pain with very limited MMT but shows resistants 4-/5 at this time. OT- Coordination Assessment Upper Extremity Finger to Nose Test Within Functional Limits Finger Tapping Test Within Functional Limits OT-Muscle Tone Assessment Muscle Tone WNL Yes OT Sensation Assessment Edema Edema Absent M9 OT- IP Assessment and Plan Start: 05/08/19 13:34 Freq: Status: Active Protocol: Document 05/08/19 13:35 CGR (Rec: 05/08/19 13:52 CGR [email or web address]) OT Summary Assessment and Plan Potential Rehabilitation Potential Excellent Analytic Complexity at Evaluation Low Summary OT Impairments Pain,Strength,Functional Mobility,Dressing,Toileting, Bathing,Toilet Transfers, Shower Transfers Progress Towards Goals Slow Progress due to Pain Assessment Summary Pt presents as a low complexity evaluation s/p 05/07 L5-S1 TLIF. Pt reports increased pain with all activity but was able to participate with limited mobility around the room. Pt educated on LB dressing and provided with long handled sponge for bathing. Pt will benefit from a shower chair prior to discharge for home use. Recommend d/c home with assist from BF. Goals Grooming Goal Independent Dressing Goal Independent Toileting Goal Independent Bathing Goal Independent Toilet Transfer Goal Independent Shower Transfer Goal Independent Days to Meet Goals 2 Frequency of Treatment Frequency Of Treatment Once a Day Treatment Plan OT Treatment Plan ADL Training,Functional Mobility,Patient/Family Education,Discharge Planning Other Treatment Recommendations and Next Shower Treatment Focus Discharge Recommendations OT Discharge Recommendations Home with Assistance Home Equipment Needs Shower chair.
[2019-05-08 13:17] VITALS: BP 110/63; PULSE 70; RESP 16; TEMP 36.7; O2SAT 96
--- NOTE | 2019-05-08 15:42 | PT.IPTN ---
Current Diagnoses Other spondylosis with radiculopathy, lumbosacral region (05/07/19) Intervertebral disc disorders with radiculopathy, lumbar region (05/07/19) Surgery Performed Operation Date: 05/07/19 07:45 Actual Procedures p L5-S1 TLIF - Andrea Wyman MD Physical Therapy Treatment Note M2 PT-IP Current Condition Start: 05/07/19 12:29 Freq: NEEDED Status: Active Protocol: Document 05/07/19 12:00 AB (Rec: 05/07/19 12:38 AB [id number]) Physical Therapy Current Condition Current Condition Evaluation Date 05/07/19 Treatment Diagnosis s/p L5S1 posterior fusion/lami ; difficulty in walking Onset Date 05/07/18 Precautions Lumbar Precautions Log Roll,No Twisting,Limit Bending,Lifting Restriction of 10 lbs,Gait Belt above Incisional Area M3 PT-IP Subjective Start: 05/07/19 12:29 Freq: NEEDED Status: Active Protocol: Document 05/08/19 15:42 AB (Rec: 05/08/19 16:43 AB [id number]) Subjective Physical Therapy Visit Type Type Treatment Note Visit Start Time 15:42 Visit Stop Time 16:20 Total Visit Minutes 38 Number of SITE SUPERVISOR Visits 0 Physical Therapy Visit Comments Patient Comments pt agreeable to do PT Therapy Pain Assessment Pain When Pain Assessed At Rest Pain Present Pain Present Pain Reported Location Lower Back Intensity 5 Scale Used Numeric (1 - 10) Pain Management Techniques Re-positioning,Timing of Activity with Medications M4 PT-IP Mobility and Gait Start: 05/07/19 12:29 Freq: NEEDED Status: Active Protocol: Document 05/08/19 15:42 AB (Rec: 05/08/19 16:43 AB [id number]) PT-Bed Mobility Assessment Rolling Level of Assist Standby Assistance Sit to Supine Sit to Supine Standby Assistance Scooting Scooting to Edge of Bed Standby Assistance PT-Transfer Assessment Sit to and From Stand Sit to and from Stand Contact Guard Assistance,1 Person Assistance,Use of Upper Extremities Equipment Transfer Assistive Device Gait Belt,Front Wheeled Walker Orthotic/Prosthetic Devices or Brace: No Transfers Transfer Destination Bed,Toilet Transfer Technique ambulated using FWW Transfer Ability Level of Assist Standby Assistance Comments Mobility Comments pt sitting on chair. agreed to do PT. completed sit to stand from chair CGA. ambulated towards the stairs SBA using FWW with step to gait. completed stair climbing. ambulated farther ~ 300 ft using FWW CGA to SBA. pt requested to use the toilet and ambulated towards the toilet SBA using FWW. completed sit to stand from the toilet CGA and ambulated towards the sink SBA using fWW and then ambulated to the EOB . Pt's boyfriend just arrived in the room. caregiver training initiated. educated pt's boyfriend on how to use safety belt and how to assist pt. Boyfriend was able to put safety belt on and assist pt with sit<>stand and ambulation . pt requested to go back in bed . pt completed sit to supine SBA. positioned pt in bed call light and table placed within reach. Gait Assessment Gait Gait Assistance Required: Standby Assistance,Contact Guard Assist Distance (Feet) 300 Assistive Devices Assistive Device Gait Belt,Front Wheeled Walker Orthotic/Prosthetic Devices or Brace: No Gait Deviations General Gait Pattern Decreased Stride Length, Decreased Feet Clearance,Step- to Gait Factors Limiting Gait Function Factors Limiting Gait Function Decreased Activity Tolerance, Decreased Strength,Limited Range of Motion,Pain,Poor Balance Comments Gait Comments pt requiring CGA initially but after a few feet, was able to ambulate with SBA. pls refer to mobility section for details Stair Climbing Assessment Evaluation Level of Assist On Stairs Contact Guard Assistance Devices Stair Climbing Assistive Devices Right Railing Technique/Endurance Stair Climbing Direction Ascend and Descend Stair Climbing Technique Step to Step Number of Steps Climbed 3 Stair Climbing Set # Repetitions (reps) 1 Comments Stair Climbing Comments completed stair climbing holding R rail with both hands and pt doing side stepping. pt does not want to do more stair training with boyfriend today but agreed to do it tomorrow. Set up caregiver training at 10 am. M5 PT-IP Objective Assessments Start: 05/07/19 12:29 Freq: NEEDED Status: Active Protocol: Document 05/07/19 12:00 AB (Rec: 05/07/19 12:38 AB [id number]) Orientation Orientation/Cognition Level of Alertness Alert Orientation Name,Place,Situation Safety Awareness Decreased Safety Awareness Memory Description Short Term Impaired Comments pt stated that she is drowsy and unable to answer some questions regarding home set up. Gross Range of Motion Lower Extremity ROM Assessment Within Functional Limits Strength Lower Extremity Strength Assessment Within Functional Limits Coordination Assessment Gross Coordination Gross Coordination WNL Sensation Assessment Sensation Gross Sensation WNL Muscle Tone Muscle Tone WNL Yes M6 PT-IP Treatment Start: 05/07/19 12:29 Freq: NEEDED Status: Active Protocol: Document 05/08/19 15:42 AB (Rec: 05/08/19 16:43 AB [id number]) Physical Therapy Treatment Education Education Provided Precautions,Safety M7 PT-IP Assessment and Plan Start: 05/07/19 12:29 Freq: NEEDED Status: Active Protocol: Document 05/08/19 15:42 AB (Rec: 05/08/19 16:43 AB [id number]) PT Summary Assessment and Plan Potential Rehabilitation Potential Good Summary Impairments Pain,ROM,Strength,Balance, Sensation,Bed Mobility, Transfers,Gait,Activity Tolerance Progress Towards Goals Progressing Toward Goals Assessment Summary Pt is doing well with mobility . caregiver training conducted and boyfriend was able to assist pt with bed mobility, transfers and ambulation but pt requested to do stair training with boyfriend tomorrow. will do further training on next tx session, set up at 10 am 05/09/19 prior to d/c. Goals Bed Mobility Goal Independent Transfer Goal Independent,Front Wheeled Walker Gait Goal Independent,Front Wheel Walker Gait Distance 150 Other Goals up/down 3 steps 1 rail SBA Days to Meet Goals 5 Frequency of Treatment Frequency Of Treatment Twice a Day Treatment Plan Physical Therapy Treatment Plan Bed Mobility Training,Transfer Training,Gait Training, Therapeutic Exercise,Balance Retraining,Post Op Education, Discharge Planning,Hot or Cold Pack,Neuromuscular Re-ed, Coordination Retraining,Manual Therapy Recommendations To Nursing Amount of Assist Needed 1 Person Assist Discharge Recommendations PT Discharge Recommendations Home with Assistance
[2019-05-08 19:27] VITALS: BP 122/64; PULSE 70; RESP 16; TEMP 36.7; O2SAT 98
[2019-05-08] MEDS: SENNOSIDES 8.6 MG TABLET 17.2 MG PO (20:07)
[2019-05-09] VITALS: BP 101/56; PULSE 64; RESP 16; TEMP 36.9; O2SAT 97
[2019-05-09] MEDS: hydrOXYzine pamoate 25 MG CAPSULE PO (01:35)
[2019-05-09] MEDS: OXYCODONE IR 10 MG TABLET PO ×2 (01:35→07:35)
[2019-05-09] MEDS: OXYCODONE IR 5 MG TABLET PO ×2 (04:34→10:30)
[2019-05-09] MEDS: ACETAMINOPHEN 325 MG TABLET 650 MG PO ×2 (04:34→10:30)
[2019-05-09 05:48] VITALS: BP 101/57; PULSE 76; RESP 16; TEMP 36.9; O2SAT 97
[2019-05-09] MEDS: DOCUSATE 100 MG CAPSULE PO (07:35)
[2019-05-09 07:40] VITALS: BP 112/65; PULSE 70; RESP 16; TEMP 36.6; O2SAT 98
--- NOTE | 2019-05-09 10:21 | PM.PN.1 ---
Exam Vital Signs (past 8 hours): - 05/09/19 05:48 05/09/19 07:40 Temperature 98.4 F 97.8 F Pulse Rate 76 70 Respiratory Rate 16 16 Blood Pressure 101/57 L 112/65 Pulse Oximetry 97 98 Oxygen Delivery Method Room Air Oxygen Flow Rate 0 Assessment & Plan Assessment & Plan narrative: Patient is admitted after surgery. Patient is postop day 2 status post lumbar fusion. Patient has been stable and progressing with physical therapy. Patient is neurovascularly intact on exam. Patient has no signs or symptoms of DVT. Patient's dressing is clean dry and intact. Patient will be discharged today to home.
--- NOTE | 2019-05-09 10:24 | PT.IPTN ---
Current Diagnoses Other spondylosis with radiculopathy, lumbosacral region (05/07/19) Intervertebral disc disorders with radiculopathy, lumbar region (05/07/19) Surgery Performed Operation Date: 05/07/19 07:45 Actual Procedures p L5-S1 TLIF - Andrea Wyman MD Physical Therapy Treatment Note M2 PT-IP Current Condition Start: 05/07/19 12:29 Freq: NEEDED Status: Active Protocol: Document 05/07/19 12:00 AB (Rec: 05/07/19 12:38 AB [id number]) Physical Therapy Current Condition Current Condition Evaluation Date 05/07/19 Treatment Diagnosis s/p L5S1 posterior fusion/lami ; difficulty in walking Onset Date 05/07/18 Precautions Lumbar Precautions Log Roll,No Twisting,Limit Bending,Lifting Restriction of 10 lbs,Gait Belt above Incisional Area M3 PT-IP Subjective Start: 05/07/19 12:29 Freq: NEEDED Status: Active Protocol: Document 05/09/19 10:14 AW (Rec: 05/09/19 10:24 AW [id number]) Subjective Physical Therapy Visit Type Type Treatment Note Visit Start Time 10:00 Visit Stop Time 10:13 Total Visit Minutes 13 Number of CONSTRUCTION PLANT OPERATOR Visits 0 Physical Therapy Visit Comments Patient Comments Pt getting up with PNEUMATIC TOOL OPERATOR to use the bathroom, willing to participate with PT Patient Goals To discharge home today Therapy Pain Assessment Pain When Pain Assessed During Mobility Pain Present Pain Present Allowed to Sleep Location Lower Back Intensity 7 Scale Used Numeric (1 - 10) Pain Management Techniques Re-positioning,Timing of Activity with Medications M4 PT-IP Mobility and Gait Start: 05/07/19 12:29 Freq: NEEDED Status: Active Protocol: Document 05/09/19 10:14 AW (Rec: 05/09/19 10:24 AW [id number]) PT-Transfer Assessment Sit to and From Stand Sit to and from Stand Standby Assistance,1 Person Assistance,Use of Upper Extremities Equipment Transfer Assistive Device Gait Belt,Front Wheeled Walker Orthotic/Prosthetic Devices or Brace: No Transfers Transfer Destination Bed,Toilet Transfer Technique ambulated using FWW Transfer Ability Level of Assist Standby Assistance Comments Mobility Comments Pt stood from EOB using FWW SBA and ambulated to toilet SBA. She stood from the toilet with FWW SBA and use of grab bars and ambulated with FWW SBA to stairs and back. Upon return to room, she sat EOB SBA. Gait Assessment Gait Gait Assistance Required: Standby Assistance Distance (Feet) 200 Assistive Devices Assistive Device Gait Belt,Front Wheeled Walker Orthotic/Prosthetic Devices or Brace: No Gait Deviations General Gait Pattern Decreased Stride Length, Decreased Feet Clearance,Step- to Gait Factors Limiting Gait Function Factors Limiting Gait Function Decreased Activity Tolerance, Decreased Strength,Limited Range of Motion,Pain,Poor Balance Comments Gait Comments Pt required no more than SBA for ambulation with FWW. She walked slowly and with step-to pattern. In response to cues to roll the walker, she was able to equalize her step lengths and to improve her heelstrike at initial contact. She did require one reminder to turn without twisting when she attempted to look over her shoulder. Pt then demonstrated turning without twisting. Stair Climbing Assessment Evaluation Level of Assist On Stairs Standby Assistance,1 Person Assistance Devices Stair Climbing Assistive Devices Right Railing Technique/Endurance Stair Climbing Direction Ascend and Descend Stair Climbing Technique Step to Step Number of Steps Climbed 3 Stair Climbing Set # Repetitions (reps) 1 Comments Stair Climbing Comments Pt completed stairs with side- stepping, step-to pattern using R rail ascending/L rail descending. Pt's boyfriend was able to provide appropriate assist and cues. M5 PT-IP Objective Assessments Start: 05/07/19 12:29 Freq: NEEDED Status: Active Protocol: Document 05/07/19 12:00 AB (Rec: 05/07/19 12:38 AB [id number]) Orientation Orientation/Cognition Level of Alertness Alert Orientation Name,Place,Situation Safety Awareness Decreased Safety Awareness Memory Description Short Term Impaired Comments pt stated that she is drowsy and unable to answer some questions regarding home set up. Gross Range of Motion Lower Extremity ROM Assessment Within Functional Limits Strength Lower Extremity Strength Assessment Within Functional Limits Coordination Assessment Gross Coordination Gross Coordination WNL Sensation Assessment Sensation Gross Sensation WNL Muscle Tone Muscle Tone WNL Yes M6 PT-IP Treatment Start: 05/07/19 12:29 Freq: NEEDED Status: Active Protocol: Document 05/09/19 10:14 AW (Rec: 05/09/19 10:24 AW [id number]) Physical Therapy Treatment Education Education Provided Precautions,Safety M7 PT-IP Assessment and Plan Start: 05/07/19 12:29 Freq: NEEDED Status: Active Protocol: Document 05/09/19 10:14 AW (Rec: 05/09/19 10:24 AW [id number]) PT Summary Assessment and Plan Potential Rehabilitation Potential Good Status of Condition at Evaluation Stable Summary Impairments Pain,ROM,Strength,Balance, Sensation,Bed Mobility, Transfers,Gait,Activity Tolerance Progress Towards Goals Safe For Discharge Assessment Summary Pt improved with mobility, requiring no more than SBA. Her boyfriend was able to provide appropriate cues and to assist her safely. PT recommends discharge to home with SO assist once medically cleared. Goals Bed Mobility Goal Independent Transfer Goal Independent,Front Wheeled Walker Gait Goal Independent,Front Wheel Walker Gait Distance 150 Other Goals up/down 3 steps 1 rail SBA Days to Meet Goals 5 Frequency of Treatment Frequency Of Treatment Discharge Recommendations To Nursing Amount of Assist Needed Standby Assistance Discharge Recommendations PT Discharge Recommendations Home with Assistance
--- NOTE | 2019-05-09 12:05 | PC.NURSE ---
Discharge home: IV dc'd last night. Reviewed all discharge instructions and home med list thoroughly. Patient's dressing was peeling up at the distal end, so was replaced with a new Coversite dressing just prior to discharge. Parallel incisions on either side of spine were well-approximated with steve and covered with gauze. Skin was pink at staple insertion sites, with some bruising noted. No active bleeding or drainage. Instructed that she can shower with this dressing in place, but that it needs to stay as dry as possible. Instructed to call MD office if dressing becomes saturated with drainage/blood or if it starts to come off for some reason, otherwise dressing should stay on until follow up. F/U as previously scheduled. Given paper scripts for Colace, Vistaril and Oxycodone and instructed to buy Tylenol OTC. Verbalized understanding of all d/c instructions and stated no further questions. All personal belonging sent with patient at discharge. Wheeled out to private vehicle by nursing staff.
--- NOTE | 2019-05-09 15:25 | CM.DPC ---
DCP Discharge Home Per MD, pt medically stable to d/c home today with family assist. Per PT, completed additional CG training today with pt and boyfriend and still recommending safe d/c home with boyfriend assist and no identified barriers to discharge. Plan: Patient to d/c home today via boyfriend POV and no SW needs at this time. LASHAE Morfin
--- NOTE | 2019-05-13 12:03 | P.DS_ITS ---
History of Present Illness History of Present Illness Date Patient Seen: 05/09/19 Time Patient Seen: 10:21 Chief complaint: [id number] Narrative: see progress note Discharge Providers Provider Date of admission: 05/07/19 06:08 Discharge Date: 05/09/19 Primary care physician: Kathleen Winkler DO Consults: 05/07/19 11:41 Consult to Occupational Therapy Evaluate & Treat Comment: Physician Instructions: Evaluate and treat Consult to Physical Therapy Evaluate & Treat Comment: Physician Instructions: Evaluate and Treat Discharge provider: Patel Oropeza PA-C Summary Hospital Course Discharge Diagnosis: Pre-op diagnosis: 1. L5-S1 spinal stenosis. 2. L5-S1 disc disease with radiculopathy Post-op diagnosis: same Hospital Course: [address] [address] Operative Note Patient: Mai Mohan [facility]#: [id number] : 6Acct:[id number] Age/Sex: 63 / F Date of Service: 05/07/19 Provider: Andrea Wyman MD Operative Date/Time/Diagnoses Date of procedure: 05/07/19 Time of procedure: 07:44 Pre-op diagnosis: 1. L5-S1 spinal stenosis. 2. L5-S1 disc disease with radiculopathy Post-op diagnosis: same Procedure & Clinicians Procedure: 1. L5-S1 Postero-lateral and posterior interbody fusion 2. L5-S1 interbody cage placement. 3. L5-S1 decompressive laminectomy with bilateral facetecomies 4. L5-S1 Posterior non-segmental instrumentation 5. [place] of bone marrow from iliac crest 6. Utilization of microsurgical technique and operating microscope Same procedure as scheduled: Yes Indications: Patient has been having chronic back pain and worsening lumbar radiculopathy. Patient failed multiple conservative management with worsening pain weakness and numbness in her lower extremity. Patient has been having difficulty performing activity of daily living. After discussing risks benefits of treatment options, patient elected proceed with surgery. Surgeon: Andrea Wyman Underwater Hunter Trapper: Sonal Yadav Click Yes if Unassisted: No Anesthesia Type: General Operative Notes Closure Type: primary Specimen(s): none sent Prosthetic devices, grafts, tissues, transplants, or devices: Globus revolve screws, Rise cage Estimated Blood Loss (mL): 40 Blood products transfused: none Status at Discharge Cognitive/behavioral status at discharge: at baseline, oriented Functional status at discharge: uses cane/walker Overall status at discharge: patient is progressing back to baseline Time Spent with Patient Time spent: Less than 30 minutes Exam Vital Signs (past 8 hours): Oxygen Delivery Method Room Air Oxygen Flow Rate 0 Narrative Exam Narrative: see progress note Discharge Plan Discharge Plan Patient Disposition: Home Discharge orders & Medications Prescriptions: New acetaminophen 325 mg Tablet 650 mg PO Q6HR PRN (Reason: Pain, Mild (1-3)) Qty: 40 RF: 0 docusate sodium [DOK] 100 mg Capsule 100 mg PO BID Qty: 40 RF: 0 oxycodone 5 mg Tablet 5 mg PO Q4-6H PRN (Reason: Pain, Moderate (4-6)) Qty: 60 RF: 0 hydroxyzine pamoate 25 mg Capsule 25 mg PO Q4HR PRN (Reason: Nausea And Vomiting) Qty: 60 RF: 0 Continued trazodone 50 mg tablet 50 mg PO BEDTIME PRN (Reason: insomnia) Qty: 90 RF: 1 meloxicam [Mobic] 15 mg tablet 15 mg PO [facility] Qty: 90 RF: 1 acetaminophen [Tylenol Extra Strength] 500 mg Tablet 1,000 mg PO PRN MDD 1000 PRN (Reason: Pain, Moderate) RF: 0 simethicone [Gas-X Ultra-Strength] 180 mg Capsule 1 mg PO DAILY RF: 0 Follow up/Referrals: Andrea Wyman MD [Physician] - Kathleen Winkler DO [Primary Care Provider] - Diet/Activity/Treatments Diet: Diet as Tolerated Activity: No bending, lifting, or twisting. Cold/Heat Therapy: Apply ice packs as needed. Allow skin to return to room temperature between icing. Skin/Wound/Dressing Care Report to your healthcare provider any signs of infection, such as:: chills, fever, night sweats, unusual drainage and unusual redness Other wound treatment: Dressing will remain in place until 2 week postoperative visit. If dressing becomes saturated or soiled please call the office. Visit Report/Discharge Packet Instructions: DI for Prescription Opioid Use, Stool Softeners, Oxycodone, Hydroxyzine, DI for Transforaminal Lumbar Interbody Fusion Discharge Data Primary Care Provider: Kathleen Winkler Discharges patient from system. Discharge Date/Time: 05/09/19 12:15
== END 2019-05-09 12:15 | disposition home or self-care (01) | DRG 455 ==
PROVIDERS: Admitting Provider Orthopaedic Surgery Orthopaedic Surgery of the Spine; PCP Family Medicine; Visit Provider Orthopaedic Surgery Orthopaedic Surgery of the Spine
PROC: 0SG30AJ Fusion of Lumbosacral Joint with Interbody Fusion Device, Posterior Approach, Anterior Column, Open Approach (ICD-10-PCS; principal; 2019-05-07 07:45)
DX: M47.27 Other spondylosis with radiculopathy, lumbosacral region (principal); M51.16 Intervertebral disc disorders with radiculopathy, lumbar region; F32.9 Major depressive disorder, single episode, unspecified; F41.9 Anxiety disorder, unspecified
CPT/HCPCS: 72100; 76000; 97116; 97161; 97165; 97530; 97535; C1776; C9290; J0131; J0330; J0690; J1100; J1170; J2250; J2270; J2405; J2704; J3010; J3410

== ENCOUNTER → 2019-08-30 14:28 | Outpatient (CLI) | payer OTHER, SELFPAY ==
[2019-05-07 11:43] VITALS: BMI 22.6
[2019-08-30 16:19] LABS: Add Manual Diff / Slide Review NO; Basophils Absolute Auto 100 /uL (0-100); Basophils Percent Auto 0.6 % (0-2); Eosinophils Absolute Auto 200 /uL (0-450); Eosinophils Percent Auto 2.4 % (2-4); Hematocrit 35.8 % (36-46); Hemoglobin 12.1 g/dL (12.0-16.0); Lymphocytes Absolute Auto 3100 /uL (1100-4500); Lymphocytes Percent Auto 36.2 % (25-40); Mean Corpuscular Hemoglobin 31.4 PG (26-34); Mean Corpuscular Volume 92.5 fL (80-100); Monocytes Absolute Auto 500 /uL (0-900); Monocytes Percent Auto 6.3 % (3-14); Neutrophils Absolute Auto 4700 /uL (1500-7000); Neutrophils Percent Auto 54.5 % (50-75); Platelet Count 226 X10^3/uL (150-400); Red Blood Cell Count 3.86 X10^6/uL (4.0-5.2); Red Cell Distribution Width 12.9 % (11.6-14.8); White Blood Cell Count 8.6 X10^3/uL (4.5-11.0)
[2019-08-30 16:49] LABS: Alanine Aminotransferase 65 IU/L (<35); Albumin 4.3 g/dL (3.5-5.0); Albumin Globulin Ratio 1.7 (1.0-2.8); Alkaline Phosphatase 54 U/L (38-126); Aspartate Aminotransferase 106 IU/L (14-36); BUN Creatinine Ratio 28.3 (6-22); Bilirubin Total 0.2 mg/dL (0.2-1.3); Blood Urea Nitrogen 26 mg/dL (7-17); Calcium 9.5 mg/dL (8.4-10.2); Carbon Dioxide 21 mmol/L (22-32); Chloride 106 mmol/L (98-107); Estimated Glomerular Filt Rate > 60.0 mL/min (>60); Globulin 2.5 g/dL (1.7-4.1); Glucose 89 mg/dL (80-110); HEMOLYSIS < 15 (0-50); Potassium 4.7 mmol/L (3.4-5.1); Sodium 136 mmol/L (137-145); Total Protein 6.8 g/dL (6.3-8.2)
== END ==
PROVIDERS: PCP Family Medicine; Referring Provider Family Medicine; Visit Provider Family Medicine
DX: R10.2 Pelvic and perineal pain (principal); R14.0 Abdominal distension (gaseous)
CPT/HCPCS: 36415; 80053; 85025

== ENCOUNTER → 2019-08-31 14:38 | Outpatient (CLI) | payer OTHER, SELFPAY ==
[2019-05-07 11:43] VITALS: BMI 22.6
--- NOTE | 2019-08-31 14:42 | DI.US.S_ITS ---
PROCEDURE: US PELVIC COMPLETE INDICATIONS: BLOATING, FULLNESS, R/O OV CA TECHNIQUE: Real-time scanning was performed of the pelvic organs, with image documentation. Additional endovaginal scanning was necessary due to incomplete visualization of the adnexal and endometrial structures by transabdominal scanning. COMPARISON: None. FINDINGS: Transabdominal scanning: Limited scanning through the kidneys shows no hydronephrosis. There is a small moderate free fluid seen within the right adnexal region. Endovaginal scanning: Uterus: Removed. Ovaries: Neither ovary can be seen. No adnexal masses are seen. IMPRESSION: Status post hysterectomy. Neither ovary can be seen. No adnexal masses are seen. A small amount of free fluid can be seen within the right adnexal region. Dictated by: Justo Lazo M.D. on 08/31/2019 at 14:57 Approved by: Justo Lazo M.D. on 08/31/2019 at 14:58
== END ==
PROVIDERS: PCP Family Medicine; Referring Provider Family Medicine; Visit Provider Family Medicine
DX: R14.0 Abdominal distension (gaseous) (principal); R10.2 Pelvic and perineal pain; Z90.710 Acquired absence of both cervix and uterus
CPT/HCPCS: 76830; 76856

== ENCOUNTER → 2019-09-30 11:37 | Outpatient (CLI) | payer OTHER, SELFPAY ==
[2019-05-07 11:43] VITALS: BMI 22.6
[2019-09-30 13:20] LABS: Alanine Aminotransferase 32 IU/L (<35); Albumin 4.7 g/dL (3.5-5.0); Alkaline Phosphatase 55 U/L (38-126); Aspartate Aminotransferase 43 IU/L (14-36); Bilirubin Total 0.4 mg/dL (0.2-1.3); Blood Urea Nitrogen 20 mg/dL (7-17); Carbon Dioxide 22 mmol/L (22-32); Chloride 107 mmol/L (98-107); Estimated Glomerular Filt Rate > 60.0 mL/min (>60); Globulin 2.3 g/dL (1.7-4.1); Glucose 69 mg/dL (80-110); HEMOLYSIS 34 (0-50); Sodium 139 mmol/L (137-145)
== END ==
PROVIDERS: PCP Family Medicine; Referring Provider Family Medicine; Visit Provider Family Medicine
DX: R74.0 Nonspecific elevation of levels of transaminase and lactic acid dehydrogenase [LDH] (principal)
CPT/HCPCS: 36415; 80053

== ENCOUNTER → 2019-11-13 07:57 | Outpatient (CLI) | payer OTHER, SELFPAY ==
[2019-05-07 11:43] VITALS: BMI 22.6
--- NOTE | 2019-11-13 | DI.MG.S_ITS ---
BILATERAL DIGITAL SCREENING MAMMOGRAM 3D/2D WITH CAD: 11/13/2019 CLINICAL: Routine screening. Family history of breast cancer. Comparison is made to exams dated: 10/13/2018 mammogram, 10/07/2017 mammogram, 09/11/[address] [facility] - [facility], 08/04/2014 mammogram, 08/03/2015 mammogram, and 07/19/2013 mammogram - [facility]. There are scattered fibroglandular elements in both breasts. Current study was also evaluated with a Computer Aided Detection (CAD) system. No significant masses, calcifications, or other findings are seen in either breast. There has been no significant interval change. IMPRESSION: NEGATIVE There is no mammographic evidence of malignancy. A 1 year screening mammogram is recommended. This exam was interpreted at Station ID: [id number]. NOTE: For mammograms, a report in lay terms will be sent to the patient. Approximately 15% of breast malignancies will not be visualized mammographically. In the management of a palpable breast mass, a negative mammogram must not discourage biopsy of a clinically suspicious lesion. Electronically Signed By: Ra sandoval/[place]:11/15/2019 08:41:00 letter sent: Normal Exam ACR BI-RADS Category 1: Negative 3341F
== END ==
PROVIDERS: PCP Family Medicine; Referring Provider Family Medicine; Visit Provider Family Medicine
DX: Z12.31 Encounter for screening mammogram for malignant neoplasm of breast (principal); Z80.3 Family history of malignant neoplasm of breast
CPT/HCPCS: 77063; 77067

== ENCOUNTER → 2020-02-07 15:20 | Outpatient (CLI) | payer OTHER, SELFPAY ==
[2019-05-07 11:43] VITALS: BMI 22.6
--- NOTE | 2020-02-07 | DI.RAD.S_ITS ---
PROCEDURE: XR HIP W PEL IF DONE LT 2V INDICATIONS: Unilateral primary osteoarthritis, left hip TECHNIQUE: AP pelvis with lateral view(s) of the left hip(s). COMPARISON: [facility], , XR HIP W PEL IF DONE RT 2V, 10/15/2018, 15:47. FINDINGS: Bones: No fractures or dislocations. Pelvic ring appears intact. No suspicious bony lesions. Soft tissues: The visualized bowel gas pattern is normal. No suspicious soft tissue calcifications. IMPRESSION: A lumbosacral spine posterior fusion device is present bilaterally with an interbody disc prosthesis at L5-S1. Minimal left hip joint space narrowing is present, no trauma. Dictated by: Raudel Snyder M.D. on 02/07/2020 at 17:09 Approved by: Raudel Snyder M.D. on 02/07/2020 at 17:10
== END ==
PROVIDERS: PCP Family Medicine; Referring Provider Chiropractor; Visit Provider Chiropractor
DX: M16.12 Unilateral primary osteoarthritis, left hip (principal); Z98.1 Arthrodesis status
CPT/HCPCS: 73502

== ENCOUNTER → 2020-03-28 13:22 | Outpatient (CLI) | payer OTHER, SELFPAY ==
[2019-05-07 11:43] VITALS: BMI 22.6
--- NOTE | 2020-03-28 13:23 | DI.MRI.S_ITS ---
PROCEDURE: MR LUMBAR SPINE WO CON INDICATIONS: left L4/5 radicu TECHNIQUE: Noncontrast sagittal T1 spin echo and T2 fast echo, sagittal STIR, axial T1 and T2 fast spin echo through the lumbar spine. In cases with scoliosis, additional coronal T2 fast spin echo may be performed. COMPARISON: [facility], MR, MR LUMBAR SPINE WITHOUT CONTRAST, 11/05/2018, 10:26. [facility], CR, XR LUMBAR SPINE 2 OR 3 VIEWS, 10/28/2019, 10:16. FINDINGS: Image quality: Excellent. Alignment and Curvature: 5 lumbar type vertebral bodies are present by plain film. Alignment is normal. Bone Marrow: Marrow is of normal overall signal. No acute vertebral body compression fractures. Posterior fusion of L5-S1 has been performed, new since the prior examination. Spinal Cord: Conus medullaris terminates at the mid L2 level. Visualized cord demonstrates normal signal and size. Paraspinous Soft Tissues: No paravertebral masses. L1-L2: Normal appearance. L2-L3: Mild disc desiccation and diffuse disc bulge. Mild facet and ligamentum flavum hypertrophy. Mild epidural lipomatosis. Mild canal stenosis. Mild bilateral foraminal stenosis. No change. L3-L4: Mild disc height loss and desiccation. Mild diffuse disc bulge. Mild facet and ligamentum flavum hypertrophy. Mild epidural lipomatosis. Mild canal stenosis. Mild bilateral foraminal stenosis. No change. L4-L5: Mild disc height loss and desiccation. Mild diffuse disc bulge. Mild bilateral facet and ligamentum flavum hypertrophy. Mild epidural lipomatosis. Mild canal stenosis. Mild bilateral foraminal stenosis. No change. L5-S1: Status post fusion. Interbody device placement. Mild residual disc bulge. Mild bilateral facet hypertrophy. Mild canal stenosis. Mild bilateral foraminal stenosis. No change. IMPRESSION: 1. Multilevel degenerative disc and facet disease, as well as ligamentum flavum hypertrophy and epidural lipomatosis. 2. Mild multilevel canal and foraminal stenosis. 3. Postsurgical sequelae. Dictated by: Martha Clarke M.D. on 03/28/2020 at 16:22 Approved by: Martha Clarke M.D. on 03/28/2020 at 16:28
== END ==
PROVIDERS: PCP Family Medicine; Referring Provider Physical Medicine & Rehabilitation; Visit Provider Physical Medicine & Rehabilitation
DX: M51.16 Intervertebral disc disorders with radiculopathy, lumbar region (principal); M48.061 Spinal stenosis, lumbar region without neurogenic claudication; M48.07 Spinal stenosis, lumbosacral region; E88.2 Lipomatosis, not elsewhere classified; Z98.1 Arthrodesis status
CPT/HCPCS: 72148

== ENCOUNTER → 2020-04-24 14:28 | Outpatient (CLI) | payer OTHER, SELFPAY ==
[2020-04-13 10:44] VITALS: BMI 22.6
[2020-04-24 15:49] LABS: COVID19 -Nasal RAPID Negative (Negative)
== END ==
PROVIDERS: PCP Family Medicine; Visit Provider Physical Medicine & Rehabilitation
DX: Z01.812 Encounter for preprocedural laboratory examination (principal); Z20.822 Contact with and (suspected) exposure to COVID-19
CPT/HCPCS: 87635; C9803

== ENCOUNTER 2020-04-25 14:09 | Outpatient (CLI) | payer OTHER, SELFPAY ==
[2020-04-13 10:44] VITALS: BMI 22.6
[2020-04-25] VITALS (8 sets, daily range): BP systolic 90–127; BP diastolic 51–66; PULSE 50–62; RESP 12–19; TEMP 36.3; O2SAT 92–100
--- NOTE | 2020-04-25 14:11 | DI.RAD.S_ITS ---
PROCEDURE: PAIN L/S TRANSFORAMINAL INJECT INDICATIONS: SPONDYLOSIS COMPARISON: None. FINDINGS: Fluoroscopic spot filming was performed to verify placement of spinal needles at the L4-L5 level(s), as labeled on the films. Appropriate location(s) of the needle tip(s) was confirmed by injection of iodinated contrast. IMPRESSION: Fluoroscopy for pain management. Dictated by: Gi Elizabeth M.D. on 04/25/2020 at 15:44 Approved by: Gi Elizabeth M.D. on 04/25/2020 at 15:44
[2020-04-25] MEDS: fentaNYL 100 MCG/2 ML INJ 50 MCG IV (15:05)
[2020-04-25] MEDS: MIDAZOLAM 5 MG/5 ML VIAL IV (15:05)
[2020-04-25] MEDS: IOPAMIDOL 15 ML VIAL 3 ML INJ (15:10)
[2020-04-25] MEDS: BETAMETHASONE 30 MG/5 ML MDV 6 MG INJ (15:11)
[2020-04-25] MEDS: BUPIVACAINE 0.25% (PF) VIAL 2 ML INJ (15:11)
[2020-04-25] MEDS: DEXAMETHASONE 10 MG/ML VIAL 20 MG INJ (15:11)
--- NOTE | 2020-04-25 15:18 | P.PCN_ITS ---
Date/Time/Diagnoses Date of procedure: 04/25/20 Time of procedure: 15:18 Pre-procedure diagnosis: 1. FORAMINAL STENOSIS WITH LE SYMPTOMS Post-procedure diagnosis: same Procedure Notes Procedure: 1. FLUOROSCOPICALLY GUIDED CONTRAST CONTROLLED TRANSFORAMINAL EPIDURAL STEROID INJECTION - LEFT L4/5 Indications: Mai is referred by Dr. Winkler for treatment of Foraminal Stenosis with Left LE Symptoms Physician: Mono Bustillo Total Fluoroscopy time (seconds): 8 Total sedation minutes: 11 Complications: none Procedure in detail & Post-procedure care: FINDINGS Foraminal Nerve Root Compression secondary to disc disease and facet hypertrophy DESCRIPTION OF PROCEDURE Following review of allergy and review of potential side effects and complications, including, but not necessarily limited to, infection, allergic reaction, local tissue breakdown, stroke, temporary or permanent nerve injury, paralysis, and possible , the patient indicated that the patient understood and agreed to proceed. An informed consent document was signed by the patient, witnessed by a nurse, and placed in the patient's chart. Additionally, other treatment options including medications, modalities, and physical therapy were reviewed with the patient. After review of previous anaesthesic history and IV conscious sedation the patient was deemed safe to proceed with today?s procedure with IV conscious sedation as ASA class II designation. Safety time-out was performed to confirm patient ID, procedure to be performed and site of procedure. IV sedation was accomplished with a combination of 2mg of Versed and 50mcg of Fentanyl administered by the RN after DO order, titrated to patient comfort during the course of the procedure while the patient remained responsive to all verbal commands In the prone position following sterile prep and drape of the lumbar region, the left L4/5 posterior neuroforamen was identified fluoroscopically. The skin was anesthetized via a 25-gauge 1.5-inch needle with 1% lidocaine solution. At this point, a 25-gauge 3.5-inch spinal needle was atraumatically introduced and advanced under fluoroscopic guidance through the posterior left L4/5 neuroforamen to approximately the anterior aspect of the canal. Depth was confirmed on lateral view. Following negative aspiration, injection of approximately 1.5 cc of Isovue 200 under live fluoroscopy in the AP view confirmed excellent flow along the nerve root, into the epidural space without vascular or intrathecal uptake observed Radiological data, including multiple fluoroscopic views of the lumbosacral spine, reveal a spinal needle at the left L4/5 posterior neuroforamen. Subsequent views show flow of contrast material flowing superiorly and inferiorly along the nerve root confirming epidural flow. Subsequently, a test dose of 1.5 cc of 1% lidocaine solution was administered and patient was observed for two minutes for signs or symptoms of complications, including abdominal pain, shortness of breath, bilateral upper or lower extremity weakness, nausea and vomiting, prior to steroid injection. At this point, a total of 3cc or 20mg of dexamethasone and 6mg of betamethasone was injected without incident. The procedure tolerated the procedure well without signs or symptoms of complications prior to transfer to the recovery area continued monitoring without incident. The patient was then transferred to the recovery area where they were observed for an appropriate time after the injection. The patient reported a VAS score of 7 prior to the procedure and a post- procedure VAS of 1. POST OP INSTRUCTIONS The patient was provided a Pain Log to continue to record their response to the target-specific procedure prior to follow-up visit with their referring physician. Additionally, specific post-injection care instructions and a contact number to our office were provided if concerns arise regarding possible complications associated with the procedure are suspected.
== END 2020-04-25 15:40 | disposition home or self-care (01) ==
PROVIDERS: PCP Family Medicine; Referring Provider Physical Medicine & Rehabilitation; Visit Provider Physical Medicine & Rehabilitation
DX: M48.061 Spinal stenosis, lumbar region without neurogenic claudication (principal); M51.16 Intervertebral disc disorders with radiculopathy, lumbar region
CPT/HCPCS: 64483; 99152; J0702; J1100; J2250; J3010

== ENCOUNTER → 2020-06-07 16:55 | Outpatient (CLI) | payer OTHER, SELFPAY ==
[2020-04-13 10:44] VITALS: BMI 22.6
[2020-06-07 17:20] LABS: COVID19 -Nasal RAPID Negative (Negative)
== END ==
PROVIDERS: PCP Family Medicine; Referring Provider Physician Assistant; Visit Provider Physician Assistant
DX: Z20.822 Contact with and (suspected) exposure to COVID-19 (principal)
CPT/HCPCS: 87635

== ENCOUNTER → 2020-07-11 16:49 | Outpatient (CLI) | payer OTHER, SELFPAY ==
[2020-04-13 10:44] VITALS: BMI 22.6
[2020-07-11] MEDS: COVID-19 VACC #1, MRNA(MOD) 100 MCG/0.5 ML VIAL IM (16:58)
== END ==
PROVIDERS: PCP Family Medicine; Visit Provider Internal Medicine
DX: Z23 Encounter for immunization (principal)
CPT/HCPCS: 0011A; 91301

== ENCOUNTER → 2020-07-17 06:54 | Outpatient (CLI) | payer OTHER, SELFPAY ==
[2020-04-13 10:44] VITALS: BMI 22.6
[2020-07-17 07:56] LABS: Add Manual Diff / Slide Review NO; Basophils Absolute Auto 0 /uL (0-100); Basophils Percent Auto 0.9 % (0-2); Eosinophils Absolute Auto 100 /uL (0-450); Eosinophils Percent Auto 2.3 % (2-4); Hematocrit 37.7 % (36-46); Hemoglobin 12.6 g/dL (12.0-16.0); Lymphocytes Absolute Auto 2500 /uL (1100-4500); Lymphocytes Percent Auto 50.6 % (25-40); Mean Corpuscular HGB Conc 33.5 % (30-36); Mean Corpuscular Hemoglobin 30.9 PG (26-34); Monocytes Absolute Auto 400 /uL (0-900); Monocytes Percent Auto 7.2 % (3-14); Neutrophils Absolute Auto 1900 /uL (1500-7000); Platelet Count 206 X10^3/uL (150-400); Red Blood Cell Count 4.09 X10^6/uL (4.0-5.2); Red Cell Distribution Width 12.9 % (11.6-14.8)
[2020-07-17 08:13] LABS: Alanine Aminotransferase 36 IU/L (<35); Albumin 4.3 g/dL (3.5-5.0); Alkaline Phosphatase 46 U/L (38-126); Aspartate Aminotransferase 44 IU/L (14-36); BUN Creatinine Ratio 16.2 (6-22); Bilirubin Total 0.2 mg/dL (0.2-1.3); Blood Urea Nitrogen 16 mg/dL (7-17); Calcium 9.8 mg/dL (8.4-10.2); Carbon Dioxide 26 mmol/L (22-32); Chloride 108 mmol/L (98-107); Cholesterol 199 mg/dL (140-199); Estimated Glomerular Filt Rate 56.5 mL/min (>60); Globulin 2.2 g/dL (1.7-4.1); Glucose 82 mg/dL (80-110); HDL Cholesterol 56 mg/dL (40-60); HEMOLYSIS < 15 (0-50); LDL Cholesterol Calculated 115 mg/dL (<100); Sodium 140 mmol/L (137-145); Total Protein 6.5 g/dL (6.3-8.2); Triglycerides 139 mg/dL (35-150)
== END ==
PROVIDERS: PCP Family Medicine; Referring Provider Family Medicine; Visit Provider Family Medicine
DX: Z00.00 Encounter for general adult medical examination without abnormal findings (principal)
CPT/HCPCS: 36415; 80053; 80061; 85025

== ENCOUNTER → 2020-08-09 12:25 | Outpatient (CLI) | payer MEDICARE, OTHER, SELFPAY ==
[2020-04-13 10:44] VITALS: BMI 22.6
[2020-08-09] MEDS: COVID-19 VACC #2, MRNA(MOD) 100 MCG/0.5 ML VIAL IM (12:43)
== END ==
PROVIDERS: PCP Family Medicine; Visit Provider Internal Medicine
DX: Z23 Encounter for immunization (principal)
CPT/HCPCS: 0012A; 91301

== ENCOUNTER → 2020-08-11 07:10 | Outpatient (CLI) | payer MEDICARE, OTHER, SELFPAY ==
[2020-04-13 10:44] VITALS: BMI 22.6
[2020-08-14 14:11] LABS: COVID19 -Nasal RAPID Negative (Negative)
== END ==
PROVIDERS: PCP Family Medicine; Visit Provider Physical Medicine & Rehabilitation
DX: Z20.822 Contact with and (suspected) exposure to COVID-19 (principal)
CPT/HCPCS: 87635

== ENCOUNTER 2020-08-15 13:42 | Outpatient (CLI) | payer MEDICARE, OTHER, SELFPAY ==
[2020-04-13 10:44] VITALS: BMI 22.6
[2020-08-15] VITALS (10 sets, daily range): BP systolic 89–119; BP diastolic 52–77; PULSE 48–98; RESP 10–23; TEMP 37.1; O2SAT 89–100
--- NOTE | 2020-08-15 13:47 | DI.RAD.S_ITS ---
PROCEDURE: PAIN L INTERLAMINAR/CAUDAL INJ INDICATIONS: SPONDYLOSIS COMPARISON: None. FINDINGS: Fluoroscopic spot filming was performed to verify placement of spinal needles at the left paramedian L5-S1 dorsal interlaminar notch level(s), as labeled on the films. Appropriate location(s) of the needle tip(s) was confirmed by injection of iodinated contrast. IMPRESSION: L5-S1 interlaminar notch localization for epidural steroid injection. Dictated by: Raudel Snyder M.D. on 08/15/2020 at 15:17 Approved by: Raudel Snyder M.D. on 08/15/2020 at 15:18
[2020-08-15] MEDS: fentaNYL 100 MCG/2 ML INJ 50 MCG IV (14:14)
[2020-08-15] MEDS: MIDAZOLAM 5 MG/5 ML VIAL IV (14:14)
[2020-08-15] MEDS: IOPAMIDOL 15 ML VIAL 3 ML INJ (14:18)
[2020-08-15] MEDS: methylPREDNISolone acetate 80 MG/ML VIAL INJ (14:18)
[2020-08-15] MEDS: BUPIVACAINE 0.25% (PF) VIAL 2 ML INJ (14:18)
[2020-08-15] MEDS: DEXAMETHASONE 10 MG/ML VIAL 20 MG INJ (14:19)
--- NOTE | 2020-08-15 14:25 | P.PCN_ITS ---
Date/Time/Diagnoses Date of procedure: 08/15/20 Time of procedure: 14:25 Pre-procedure diagnosis: 1. HNP WITH RADICULAR FEATURES, 2. MULTILEVEL CENTRAL STENOSIS, Post-procedure diagnosis: same Procedure Notes Procedure: 1. FLUOROSCOPICALLY GUIDED CONTRAST CONTROLLED INTERLAMINAR EPIDURAL STEROID INJECTION - L5/S1 Indications: Mai is referred by Dr. Winkler for treatment of Bilateral Foraminal Stenosis L>R LE symptoms. Physician: Mono Bustillo Total Fluoroscopy time (seconds): 6 Total sedation minutes: 9 Complications: none Procedure in detail & Post-procedure care: FINDINGS Multilevel Central Spinal Stenosis with Nerve Root Compression DESCRIPTION OF PROCEDURE Fluoroscopically guided, contrast-controlled L5/S1 translaminar epidural steroid injection. Following review of allergy and review of potential side effects and complications, including, but not necessarily limited to, infection, allergic reaction, local tissue breakdown, temporary as well as permanent nerve injury, paralysis, stroke and possible , the patient indicated that the patient understood and agreed to proceed. An informed consent document was signed by the patient, witnessed by a nurse, and placed in the patient's chart. Additionally, other treatment options including modalities, medications, and physical therapy were reviewed with the patient. After review of previous anaesthesic history and IV conscious sedation the patient was deemed safe to proceed with today?s procedure with IV conscious sedation as ASA class II designation. Safety time-out was performed to confirm p atient ID, procedure to be performed and site of procedure. IV sedation was accomplished with a combination of 2mg of Versed and 50mcg of Fentanyl administered by the RN after DO order, titrated to patient comfort during the course of the procedure while the patient remained responsive to all verbal commands. In the prone position, following sterile prep and drape of the lumbar region, the L5/S1 translaminar space was identified fluoroscopically. The skin was anesthetized via a 25-gauge, 1.5-inch needle with 1% lidocaine solution. At this point, a 22-gauge short bevel spinal needle was atraumatically introduced and advanced under fluoroscopic guidance into the region of the L5/S1 translaminar space. Depth was confirmed on lateral view. Radiological data, including multiple fluoroscopic views of the lumbar spine, reveal a spinal needle at the L5/S1 translaminar space. Lateral views then show placement of the needle in the epidural space. Subsequent views show contrast material flowing superiorly and inferiorly in the epidural space. No vascular or intrathecal uptake is observed. At this point, using loss of resistance technique with saline and air, the epidural space was entered. This was confirmed following negative aspiration with injection of approximately 1.5cc of Isovue 200, showing excellent epidural flow without vascular or intrathecal uptake. At this point, 1 cc of 1% lidocaine solution combined with 3cc or 20mg of dexamethasone and 80mg of depo medrol was injected without incident. The patent tolerated the procedure without signs of symptoms of complications prior to transfer to the recovery area for further monitoring. The patient was then transferred to the recovery area where they were observed for an appropriate period of time after the injection. The patient reported a VAS score of 6 prior to the procedure and a post-procedure VAS of 0. POST OP INSTRUCTIONS The patient was provided a Pain Log to continue to record their response to the target-specific procedure prior to follow-up visit with their referring physician. Additionally, specific post-injection care instructions and a contact number to our office were provided if concerns arise regarding possible complications associated with the procedure are suspected.
== END 2020-08-15 15:00 | disposition home or self-care (01) ==
LOC: RAD 13:46
PROVIDERS: PCP Family Medicine; Referring Provider Physical Medicine & Rehabilitation; Visit Provider Physical Medicine & Rehabilitation
DX: M51.26 Other intervertebral disc displacement, lumbar region (principal); Z98.890 Other specified postprocedural states; M48.061 Spinal stenosis, lumbar region without neurogenic claudication; M47.816 Spondylosis without myelopathy or radiculopathy, lumbar region
CPT/HCPCS: 62323; J1040; J1100; J2250; J3010

== ENCOUNTER → 2020-11-13 08:23 | Outpatient (CLI) | payer MEDICARE, OTHER, SELFPAY ==
[2020-04-13 10:44] VITALS: BMI 22.6
--- NOTE | 2020-11-13 | DI.MG.S_ITS ---
BILATERAL DIGITAL SCREENING MAMMOGRAM 3D/2D WITH CAD: 11/13/2020 CLINICAL: Routine screening. Family history of breast cancer. Comparison is made to exams dated: 11/13/2019 mammogram, 10/13/2018 mammogram, and 10/07/2017 mammogram - [facility]. There are scattered fibroglandular elements in both breasts. Current study was also evaluated with a Computer Aided Detection (CAD) system. No significant masses, calcifications, or other findings are seen in either breast. There has been no significant interval change. IMPRESSION: NEGATIVE There is no mammographic evidence of malignancy. A 1 year screening mammogram is recommended. This exam was interpreted at Station ID: [id number]. NOTE: For mammograms, a report in lay terms will be sent to the patient. Approximately 15% of breast malignancies will not be visualized mammographically. In the management of a palpable breast mass, a negative mammogram must not discourage biopsy of a clinically suspicious lesion. Electronically Signed By: Tee friedman/[place]:11/13/2020 10:23:12 letter sent: Normal Exam ACR BI-RADS Category 1: Negative 3341F
--- NOTE | 2020-11-13 08:24 | DI.RAD.S_ITS ---
PROCEDURE: XR LUMBAR SPINE MIN 4V INDICATIONS: BACK PAIN TECHNIQUE: 5 views of the lumbar spine were acquired, including bilateral oblique views. COMPARISON: [facility], CR, XR LUMBAR SPINE FLEXION EXTENSION, 06/17/2019, 9:33. [facility], CR, XR LUMBAR SPINE 2-3V, 05/07/2019, 9:21. FINDINGS: Bones: No fracture identified. Multilevel degenerative endplate sclerosis and spurring. Diffuse facet arthropathy. Grade 1 anterolisthesis of L4 on L5. Posterior spinal fixation hardware at L5-S1 with paraspinal vishal and pedicle screws. Interbody cage graft. Hardware appears intact and expected alignment. Diffuse mild disc space narrowing throughout the lumbar spine. Mild dextrocurvature. Bilateral mild hip joint degeneration. Soft tissues: Overlying bowel gas pattern is normal. No suspicious soft tissue calcifications. Oblique images: No pars defects. IMPRESSION: Postsurgical and degenerative changes as above. Mild dextrocurvature. Diffuse lumbar spondylitic changes, without definite interval progression since 06/17/19. Dictated by: Bret Briseno M.D. on 11/13/2020 at 10:22 Approved by: Bret Briseno M.D. on 11/13/2020 at 10:25
== END ==
PROVIDERS: PCP Family Medicine; Referring Provider Family Medicine; Visit Provider Family Medicine
DX: Z12.31 Encounter for screening mammogram for malignant neoplasm of breast (principal); Z80.3 Family history of malignant neoplasm of breast; M54.9 Dorsalgia, unspecified; M51.26 Other intervertebral disc displacement, lumbar region; M47.816 Spondylosis without myelopathy or radiculopathy, lumbar region; M16.0 Bilateral primary osteoarthritis of hip; Z98.1 Arthrodesis status
CPT/HCPCS: 72110; 77063; 77067

== ENCOUNTER → 2020-12-05 12:42 | Outpatient (CLI) | payer MEDICARE, OTHER, SELFPAY ==
[2020-04-13 10:44] VITALS: BMI 22.6
--- NOTE | 2020-12-05 13:00 | DIET.PN ---
Dietary Progress Note Assessment: 65y F attending nutrition visit for help with diet to reduce arthritis pain. Pt has had spinal surgery for OA in past. Recently started developing arthritic px in thumbs which has now spread to bilateral hands and feet. Pt has not been tested for RA. Usual Day: wakes 6am has diet coke or cup strong black tea c dairy milk 85% chocolate 4-6 squares small granola bar ([facility]) dog walking, emailing 9am: bowl oatmeal c fresh fruit (berries) and oatmilk Noon: small salad c half dressing and half rice vinegar c chicken and carrots Sn: apple, 1/2 grapefruit Dinner: vegetable or salad, sweet potato, chicken/fish Beverages: water/sparkling water, once per week glass wine loves: geller peppers, onions Arthritis in hands is affecting food prep and opening things. Physical Activity: super active- 40 min hard workout in pool 2-3x/w, 6 miles on hilly bike ride bid- pt taking 3d off of exercise per week secondary to arthritis px. Nutrition Diagnosis: nutrition related knowledge deficit r/t anti-inflammatory diet aeb pt has arthritis dx and curious foods to support condition to decrease pain. Interventions: 1. Educated pt on Mediterranean style, anti-inflammatory diet using multiple handouts for reinforcement. Educated pt on foods which are pro- and anti- inflammatory with goal of following anti-inflammatory diet 80% of time. Discussed intake of dietary fats and optimizing omega 3 to omega 6 ratio. Encouraged high intake fruits and veggies including citrus, red fruits, leafy greens, and cruciferous veggies. Encouraged increased intake herbs/spices. 2. To identify any specific food triggers of arthritic inflammation, pt will cut dairy from diet x2w then heavily reintroduce to identify any changes in sx. Pt will follow this with correa exclusion for 2w followed by heavy reintroduction. Goal is to identify types and amounts of these food groups which are tolerated by pt with least sx. 3. [facility]UDREY lab to rule out Rheumatoid Arthritis. Educated pt on MNT for RA in case she tests positive which includes anti-inflammatory diet with gluten exclusion. Diet Order:Anti-inflammatory diet
== END ==
PROVIDERS: PCP Family Medicine; Referring Provider Family Medicine; Visit Provider Family Medicine
DX: M19.042 Primary osteoarthritis, left hand (principal); M19.041 Primary osteoarthritis, right hand; M19.072 Primary osteoarthritis, left ankle and foot; M19.071 Primary osteoarthritis, right ankle and foot; Z71.3 Dietary counseling and surveillance
CPT/HCPCS: 97802

== ENCOUNTER → 2020-12-11 10:49 | Outpatient (CLI) | payer MEDICARE, OTHER, SELFPAY ==
[2020-04-13 10:44] VITALS: BMI 22.6
[2020-12-11 12:12] LABS: Add Manual Diff / Slide Review NO; Basophils Absolute Auto 0 /uL (0-100); Basophils Percent Auto 0.8 % (0-2); Eosinophils Absolute Auto 300 /uL (0-450); Eosinophils Percent Auto 4.5 % (2-4); Hematocrit 38.5 % (36-46); Lymphocytes Absolute Auto 2800 /uL (1100-4500); Lymphocytes Percent Auto 47.2 % (25-40); Mean Corpuscular HGB Conc 33.7 % (30-36); Mean Corpuscular Hemoglobin 31.8 PG (26-34); Mean Corpuscular Volume 94.5 fL (80-100); Monocytes Absolute Auto 300 /uL (0-900); Monocytes Percent Auto 5.5 % (3-14); Neutrophils Absolute Auto 2500 /uL (1500-7000); Platelet Count 209 X10^3/uL (150-400); Red Blood Cell Count 4.08 X10^6/uL (4.0-5.2); Red Cell Distribution Width 12.8 % (11.6-14.8); White Blood Cell Count 5.9 X10^3/uL (4.5-11.0)
[2020-12-11 13:24] LABS: Alanine Aminotransferase 33 IU/L (<35); Albumin 4.4 g/dL (3.5-5.0); Albumin Globulin Ratio 2.2 (1.0-2.8); Alkaline Phosphatase 61 U/L (38-126); Aspartate Aminotransferase 55 IU/L (14-36); BUN Creatinine Ratio 19.8 (6-22); Bilirubin Total 0.2 mg/dL (0.2-1.3); Blood Urea Nitrogen 17 mg/dL (7-17); C-Reactive Protein Quant < 0.5 mg/dL (<1.0); Calcium 9.7 mg/dL (8.4-10.2); Carbon Dioxide 24 mmol/L (22-32); Chloride 107 mmol/L (98-107); Estimated Glomerular Filt Rate > 60.0 mL/min (>60); Glucose 98 mg/dL (80-110); HEMOLYSIS < 15 (0-50); Potassium 4.4 mmol/L (3.4-5.1); Sodium 138 mmol/L (137-145); Total Protein 6.4 g/dL (6.3-8.2)
[2020-12-13 16:07] LABS: ANA Screen, IFA Negative (.)
== END ==
PROVIDERS: PCP Family Medicine; Referring Provider Family Medicine; Visit Provider Family Medicine
DX: M25.50 Pain in unspecified joint (principal); M79.10 Myalgia, unspecified site
CPT/HCPCS: 36415; 80053; 85025; 86038; 86140; 86430

== ENCOUNTER → 2020-12-12 17:36 | Outpatient (CLI) | payer MEDICARE, OTHER, SELFPAY ==
[2020-04-13 10:44] VITALS: BMI 22.6
[2020-12-15 20:12] LABS: CCP Antibodies IgG/IgA 6 units (0-19)
== END ==
PROVIDERS: PCP Family Medicine; Referring Provider Family Medicine; Visit Provider Family Medicine
DX: M25.50 Pain in unspecified joint (principal)
CPT/HCPCS: 86200

== ENCOUNTER → 2020-12-13 13:37 | Outpatient (CLI) | payer MEDICARE, OTHER, SELFPAY ==
[2020-04-13 10:44] VITALS: BMI 22.6
--- NOTE | 2020-12-13 13:38 | DI.RAD.S_ITS ---
PROCEDURE: XR WRIST LT MIN 3V INDICATIONS: bilateral hand and wrist pain, +RF TECHNIQUE: 3 views of the wrist were acquired. COMPARISON: None. FINDINGS: Bones: No fractures or dislocations. No suspicious bony lesions. Scaphoid view: Not requested. Soft tissues: No suspicious soft tissue calcifications. IMPRESSION: No definite radiographic abnormality. If pain persists with conservative management, consider cross sectional imaging such as CT or MRI for further assessment. Dictated by: Taye Vicente [facility] Interpreted: Yessi Toussaint MD on 12/13/2020 at 17:02 Approved by: Zach Haley M.D. on 12/18/2020 at 9:39
--- NOTE | 2020-12-13 13:38 | DI.RAD.S_ITS ---
PROCEDURE: XR HAND LT MIN 3V INDICATIONS: bilateral hand and wrist pain, +RF TECHNIQUE: 3 views of the hand acquired. COMPARISON: None. FINDINGS: Bones: No acute fractures or dislocations. Carpal bones are normally aligned. No suspicious bony lesions. Moderate degenerative changes at the 1st carpometacarpal joint. No signs of an inflammatory arthritis radiographically. Soft tissues: No suspicious soft tissue calcifications. IMPRESSION: No acute osseous abnormality. Moderate 1st carpometacarpal osteoarthrosis. If the symptoms persist, consider cross sectional imaging such as MRI or CT for further assessment. Dictated by: Tee Osullivan M.D. on 12/13/2020 at 16:56 Approved by: Tee Osullivan M.D. on 12/13/2020 at 16:57
--- NOTE | 2020-12-13 13:38 | DI.RAD.S_ITS ---
PROCEDURE: XR HAND RT MIN 3V INDICATIONS: bilateral hand and wrist pain, +RF TECHNIQUE: 3 views of the hand(s) acquired. COMPARISON: None. FINDINGS: Bones: No fractures or dislocations. Carpal bones are normally aligned. No suspicious bony lesions. Mild polyarticular joint space narrowing with periarticular osteophyte formation. No erosive changes. Soft tissues: No suspicious soft tissue calcifications. IMPRESSION: Mild diffuse joint degeneration and no erosive changes seen. Dictated by: Taye Vicente [facility] Interpreted: Yessi Toussaint MD on 12/13/2020 at 17:01 Transcribed by: RONNIE on 12/13/2020 at 17:02 Approved by: Yessi Toussaint M.D. on 12/13/2020 at 17:50
--- NOTE | 2020-12-13 13:38 | DI.RAD.S_ITS ---
PROCEDURE: XR WRIST RT MIN 3V INDICATIONS: bilateral hand and wrist pain, +RF TECHNIQUE: Three views of the wrist were acquired. COMPARISON: None. FINDINGS: Bones: No fractures or dislocations. Scattered tiny round lucencies in the lunate and at the base of the 1st metacarpal. No suspicious bony lesions. Scaphoid view: Not performed Soft tissues: No suspicious soft tissue calcifications. No chondrocalcinosis. IMPRESSION: 1. Small subcortical lucencies mainly in the lunate and 1st metacarpal base. Dictated by: Yessi Toussaint M.D. on 12/13/2020 at 18:29 Approved by: Yessi Toussaint M.D. on 12/13/2020 at 18:30
== END ==
PROVIDERS: PCP Family Medicine; Referring Provider Family Medicine; Visit Provider Family Medicine
DX: M25.541 Pain in joints of right hand (principal); M25.542 Pain in joints of left hand; M18.12 Unilateral primary osteoarthritis of first carpometacarpal joint, left hand; M19.041 Primary osteoarthritis, right hand
CPT/HCPCS: 73110; 73130

== ENCOUNTER → 2021-06-27 14:18 | Outpatient (CLI) | payer MEDICARE, OTHER, SELFPAY ==
[2020-04-13 10:44] VITALS: BMI 22.6
== END ==
PROVIDERS: PCP Family Medicine; Referring Provider Internal Medicine Rheumatology; Visit Provider Internal Medicine Rheumatology
DX: Z79.899 Other long term (current) drug therapy (principal); M05.79 Rheumatoid arthritis with rheumatoid factor of multiple sites without organ or systems involvement
CPT/HCPCS: 36415

== ENCOUNTER → 2021-06-28 07:03 | Outpatient (CLI) | payer MEDICARE, OTHER, SELFPAY ==
[2020-04-13 10:44] VITALS: BMI 22.6
[2021-06-28 08:49] LABS: Add Manual Diff / Slide Review NO; Basophils Absolute Auto 0 /uL (0-100); Basophils Percent Auto 0.4 % (0-2); Eosinophils Absolute Auto 100 /uL (0-450); Eosinophils Percent Auto 0.9 % (2-4); Hematocrit 40.6 % (36-46); Hemoglobin 13.6 g/dL (12.0-16.0); Lymphocytes Absolute Auto 1200 /uL (1100-4500); Mean Corpuscular HGB Conc 33.5 % (30-36); Mean Corpuscular Hemoglobin 31.5 PG (26-34); Monocytes Absolute Auto 300 /uL (0-900); Monocytes Percent Auto 5.3 % (3-14); Neutrophils Absolute Auto 4000 /uL (1500-7000); Neutrophils Percent Auto 72.4 % (50-75); Platelet Count 218 X10^3/uL (150-400); Red Blood Cell Count 4.32 X10^6/uL (4.0-5.2); Red Cell Distribution Width 12.6 % (11.6-14.8); White Blood Cell Count 5.6 X10^3/uL (4.5-11.0)
[2021-06-28 09:23] LABS: Alanine Aminotransferase 31 IU/L (<35); Albumin 5.1 g/dL (3.5-5.0); Albumin Globulin Ratio 2.3 (1.0-2.8); Alkaline Phosphatase 51 U/L (38-126); Aspartate Aminotransferase 42 IU/L (14-36); BUN Creatinine Ratio 21.5 (6-22); Bilirubin Total 0.4 mg/dL (0.2-1.3); Blood Urea Nitrogen 17 mg/dL (7-17); Calcium 9.7 mg/dL (8.4-10.2); Carbon Dioxide 21 mmol/L (22-32); Chloride 105 mmol/L (98-107); Estimated Glomerular Filt Rate > 60.0 mL/min (>60); Globulin 2.2 g/dL (1.7-4.1); Glucose 87 mg/dL (80-110); HEMOLYSIS < 15 (0-50); Potassium 4.3 mmol/L (3.4-5.1); Sodium 139 mmol/L (137-145); Total Protein 7.3 g/dL (6.3-8.2)
== END ==
PROVIDERS: PCP Family Medicine; Referring Provider Internal Medicine Rheumatology; Visit Provider Internal Medicine Rheumatology
DX: Z79.899 Other long term (current) drug therapy (principal); M05.79 Rheumatoid arthritis with rheumatoid factor of multiple sites without organ or systems involvement
CPT/HCPCS: 36415; 80053; 85025

== ENCOUNTER → 2021-07-09 07:21 | Outpatient (CLI) | payer MEDICARE, OTHER, SELFPAY ==
[2020-04-13 10:44] VITALS: BMI 22.6
[2021-07-09 08:45] LABS: Add Manual Diff / Slide Review NO; Basophils Absolute Auto 0 /uL (0-100); Basophils Percent Auto 0.3 % (0-2); Eosinophils Absolute Auto 0 /uL (0-450); Eosinophils Percent Auto 0.5 % (2-4); Hematocrit 37.9 % (36-46); Hemoglobin 12.7 g/dL (12.0-16.0); Lymphocytes Absolute Auto 2000 /uL (1100-4500); Lymphocytes Percent Auto 22.3 % (25-40); Mean Corpuscular HGB Conc 33.6 % (30-36); Monocytes Absolute Auto 600 /uL (0-900); Monocytes Percent Auto 6.2 % (3-14); Neutrophils Absolute Auto 6500 /uL (1500-7000); Neutrophils Percent Auto 70.7 % (50-75); Platelet Count 258 X10^3/uL (150-400); Red Blood Cell Count 3.98 X10^6/uL (4.0-5.2); Red Cell Distribution Width 12.7 % (11.6-14.8); White Blood Cell Count 9.1 X10^3/uL (4.5-11.0)
[2021-07-09 08:57] LABS: Alanine Aminotransferase 31 IU/L (<35); Albumin 3.9 g/dL (3.5-5.0); Albumin Globulin Ratio 2.1 (1.0-2.8); Alkaline Phosphatase 37 U/L (38-126); Aspartate Aminotransferase 30 IU/L (14-36); BUN Creatinine Ratio 22.5 (6-22); Bilirubin Total 0.3 mg/dL (0.2-1.3); Blood Urea Nitrogen 18 mg/dL (7-17); Calcium 9.1 mg/dL (8.4-10.2); Carbon Dioxide 24 mmol/L (22-32); Chloride 101 mmol/L (98-107); Estimated Glomerular Filt Rate > 60.0 mL/min (>60); Globulin 1.9 g/dL (1.7-4.1); Glucose 91 mg/dL (80-110); HEMOLYSIS < 15 (0-50); Potassium 3.9 mmol/L (3.4-5.1); Sodium 131 mmol/L (137-145); Total Protein 5.8 g/dL (6.3-8.2)
== END ==
PROVIDERS: PCP Family Medicine; Referring Provider Internal Medicine Rheumatology; Visit Provider Internal Medicine Rheumatology
DX: M05.79 Rheumatoid arthritis with rheumatoid factor of multiple sites without organ or systems involvement (principal); Z79.899 Other long term (current) drug therapy
CPT/HCPCS: 36415; 80053; 85025

== ENCOUNTER → 2021-07-23 07:12 | Outpatient (CLI) | payer MEDICARE, OTHER, SELFPAY ==
[2020-04-13 10:44] VITALS: BMI 22.6
[2021-07-23 07:40] LABS: Add Manual Diff / Slide Review NO; Basophils Absolute Auto 0 /uL (0-100); Basophils Percent Auto 0.5 % (0-2); Eosinophils Absolute Auto 100 /uL (0-450); Eosinophils Percent Auto 1.8 % (2-4); Hematocrit 39.1 % (36-46); Hemoglobin 13.4 g/dL (12.0-16.0); Lymphocytes Absolute Auto 2400 /uL (1100-4500); Lymphocytes Percent Auto 31.9 % (25-40); Mean Corpuscular HGB Conc 34.2 % (30-36); Mean Corpuscular Hemoglobin 32.7 PG (26-34); Mean Corpuscular Volume 95.5 fL (80-100); Monocytes Absolute Auto 300 /uL (0-900); Monocytes Percent Auto 4.1 % (3-14); Neutrophils Absolute Auto 4700 /uL (1500-7000); Neutrophils Percent Auto 61.7 % (50-75); Platelet Count 229 X10^3/uL (150-400); Red Cell Distribution Width 13.9 % (11.6-14.8); White Blood Cell Count 7.6 X10^3/uL (4.5-11.0)
[2021-07-23 08:42] LABS: Alanine Aminotransferase 30 IU/L (<35); Albumin 4.1 g/dL (3.5-5.0); Albumin Globulin Ratio 2.3 (1.0-2.8); Alkaline Phosphatase 40 U/L (38-126); Aspartate Aminotransferase 36 IU/L (14-36); BUN Creatinine Ratio 20.3 (6-22); Bilirubin Total 0.4 mg/dL (0.2-1.3); Blood Urea Nitrogen 15 mg/dL (7-17); Calcium 8.5 mg/dL (8.4-10.2); Carbon Dioxide 21 mmol/L (22-32); Chloride 102 mmol/L (98-107); Estimated Glomerular Filt Rate > 60.0 mL/min (>60); Globulin 1.8 g/dL (1.7-4.1); Glucose 88 mg/dL (80-110); HEMOLYSIS < 15 (0-50); Potassium 4.1 mmol/L (3.4-5.1); Sodium 132 mmol/L (137-145); Total Protein 5.9 g/dL (6.3-8.2)
== END ==
PROVIDERS: PCP Family Medicine; Referring Provider Internal Medicine Rheumatology; Visit Provider Internal Medicine Rheumatology
DX: M05.79 Rheumatoid arthritis with rheumatoid factor of multiple sites without organ or systems involvement (principal); Z79.899 Other long term (current) drug therapy
CPT/HCPCS: 36415; 80053; 85025

== ENCOUNTER → 2021-08-20 06:57 | Outpatient (CLI) | payer MEDICARE, OTHER, SELFPAY ==
[2020-04-13 10:44] VITALS: BMI 22.6
[2021-08-20 08:39] LABS: Add Manual Diff / Slide Review NO; Basophils Absolute Auto 100 /uL (0-100); Basophils Percent Auto 0.9 % (0-2); Eosinophils Absolute Auto 200 /uL (0-450); Eosinophils Percent Auto 3.1 % (2-4); Hematocrit 37.3 % (36-46); Hemoglobin 13.1 g/dL (12.0-16.0); Lymphocytes Absolute Auto 3600 /uL (1100-4500); Lymphocytes Percent Auto 59.7 % (25-40); Mean Corpuscular Hemoglobin 33.5 PG (26-34); Mean Corpuscular Volume 95.6 fL (80-100); Monocytes Absolute Auto 400 /uL (0-900); Monocytes Percent Auto 7.1 % (3-14); Neutrophils Absolute Auto 1800 /uL (1500-7000); Neutrophils Percent Auto 29.2 % (50-75); Platelet Count 201 X10^3/uL (150-400); Red Cell Distribution Width 13.7 % (11.6-14.8); White Blood Cell Count 6.1 X10^3/uL (4.5-11.0)
[2021-08-20 08:59] LABS: Alanine Aminotransferase 49 IU/L (<35); Albumin 4.1 g/dL (3.5-5.0); Albumin Globulin Ratio 2.3 (1.0-2.8); Alkaline Phosphatase 36 U/L (38-126); Aspartate Aminotransferase 64 IU/L (14-36); BUN Creatinine Ratio 19.6 (6-22); Bilirubin Total 0.4 mg/dL (0.2-1.3); Blood Urea Nitrogen 18 mg/dL (7-17); Calcium 8.8 mg/dL (8.4-10.2); Carbon Dioxide 24 mmol/L (22-32); Chloride 102 mmol/L (98-107); Estimated Glomerular Filt Rate > 60 mL/min (>60); Globulin 1.8 g/dL (1.7-4.1); Glucose 66 mg/dL (80-110); HEMOLYSIS < 15 (0-50); Potassium 3.9 mmol/L (3.4-5.1); Sodium 134 mmol/L (137-145); Total Protein 5.9 g/dL (6.3-8.2)
== END ==
PROVIDERS: PCP Family Medicine; Referring Provider Internal Medicine Rheumatology; Visit Provider Internal Medicine Rheumatology
DX: Z79.899 Other long term (current) drug therapy (principal); M05.79 Rheumatoid arthritis with rheumatoid factor of multiple sites without organ or systems involvement
CPT/HCPCS: 36415; 80053; 85025

== ENCOUNTER → 2021-08-21 11:06 | Outpatient (CLI) | payer MEDICARE, OTHER, SELFPAY ==
[2020-04-13 10:44] VITALS: BMI 22.6
[2021-08-21 12:34] LABS: COVID19 -Nasal RAPID Negative (Negative)
== END ==
PROVIDERS: PCP Family Medicine; Visit Provider Physical Medicine & Rehabilitation
DX: Z20.822 Contact with and (suspected) exposure to COVID-19 (principal)
CPT/HCPCS: 87635; C9803

== ENCOUNTER 2021-08-23 09:43 | Outpatient (CLI) | payer MEDICARE, OTHER, SELFPAY ==
[2020-04-13 10:44] VITALS: BMI 22.6
[2021-08-23] VITALS (9 sets, daily range): BP systolic 88–118; BP diastolic 51–62; PULSE 57–65; RESP 11–20; TEMP 36.4; O2SAT 99–100
--- NOTE | 2021-08-23 10:00 | DI.RAD.S_ITS ---
PROCEDURE: PAIN L INTERLAMINAR/CAUDAL INJ INDICATIONS: SPONDYLOSIS COMPARISON: [facility], XA, PAIN L INTERLAMINAR/CAUDAL INJ, 08/15/2020, 14:19. FINDINGS: Fluoroscopic spot filming was performed to verify placement of a spinal needle at the L5-S1 level, as labeled on the films. Appropriate location of the needle tip was confirmed by injection of iodinated contrast. IMPRESSION: No significant intraprocedural abnormality. Dictated by: Justo Lazo M.D. on 08/23/2021 at 10:55 Approved by: Justo Lazo M.D. on 08/23/2021 at 10:56
[2021-08-23] MEDS: MIDAZOLAM 2 MG/2 ML VIAL (10:30)
[2021-08-23] MEDS: IOPAMIDOL 15 ML VIAL 3 ML INJ (10:38)
[2021-08-23] MEDS: BUPIVACAINE 0.25% (PF) VIAL 2 ML INJ (10:38)
[2021-08-23] MEDS: BETAMETHASONE 30 MG/5 ML MDV 6 MG INJ (10:39)
[2021-08-23] MEDS: DEXAMETHASONE 10 MG/ML VIAL 20 MG INJ (10:39)
--- NOTE | 2021-08-23 10:50 | P.PCN_ITS ---
Date/Time/Diagnoses Date of procedure: 08/23/21 Time of procedure: 10:50 Pre-procedure diagnosis: 1. HNP WITH RADICULAR FEATURES, 2. MULTILEVEL CENTRAL STENOSIS, Post-procedure diagnosis: same Procedure Notes Procedure: 1. FLUOROSCOPICALLY GUIDED CONTRAST CONTROLLED INTERLAMINAR EPIDURAL STEROID INJECTION - L5/S1 Indications: Mai is referred by Dr. Winkler for treatment of Bilateral Foraminal Stenosis L>R LE symptoms. Physician: Mono Bustillo Total Fluoroscopy time (seconds): 5 Total sedation minutes: 17 Complications: none Procedure in detail & Post-procedure care: FINDINGS Multilevel Central Spinal Stenosis with Nerve Root Compression DESCRIPTION OF PROCEDURE Fluoroscopically guided, contrast-controlled L5/S1 translaminar epidural steroid injection. Following review of allergy and review of potential side effects and complications, including, but not necessarily limited to, infection, allergic reaction, local tissue breakdown, temporary as well as permanent nerve injury, paralysis, stroke and possible , the patient indicated that the patient understood and agreed to proceed. An informed consent document was signed by the patient, witnessed by a nurse, and placed in the patient's chart. Additionally, other treatment options including modalities, medications, and physical therapy were reviewed with the patient. After review of previous anaesthesic history and IV conscious sedation the patient was deemed safe to proceed with today?s procedure with IV conscious sedation as ASA class II designation. Safety time-out was performed to confirm patient ID, procedure to be performed and site of procedure. IV sedation was accomplished with a combination of 2mg of Versed administered by the RN after DO order, titrated to patient comfort during the course of the procedure while the patient remained responsive to all verbal commands. In the prone position, following sterile prep and drape of the lumbar region, the L5/S1 translaminar space was identified fluoroscopically. The skin was anesthetized via a 25-gauge, 1.5-inch needle with 1% lidocaine solution. At this point, a 22-gauge short bevel spinal needle was atraumatically introduced and advanced under fluoroscopic guidance into the region of the L5/S1 translaminar space. Depth was confirmed on lateral view. Radiological data, including multiple fluoroscopic views of the lumbar spine, reveal a spinal needle at the L5/S1 translaminar space. Lateral views then show placement of the needle in the epidural space. Subsequent views show contrast material flowing superiorly and inferiorly in the epidural space. No vascular or intrathecal uptake is observed. At this point, using loss of resistance technique with saline and air, the epidural space was entered. This was confirmed following negative aspiration with injection of approximately 1.5cc of Isovue 200, showing excellent epidural flow without vascular or intrathecal uptake. At this point, 1 cc of 1% lidocai ne solution combined with 3cc or 20mg of dexamethasone and 6mg of betamethasone was injected without incident. The patent tolerated the procedure without signs of symptoms of complications prior to transfer to the recovery area for further monitoring. The patient was then transferred to the recovery area where they were observed for an appropriate period of time after the injection. The patient reported a VAS score of 6 prior to the procedure and a post-procedure VAS of 0. POST OP INSTRUCTIONS The patient was provided a Pain Log to continue to record their response to the target-specific procedure prior to follow-up visit with their referring physician. Additionally, specific post-injection care instructions and a contact number to our office were provided if concerns arise regarding possible complications associated with the procedure are suspected.
== END 2021-08-23 11:07 | disposition home or self-care (01) ==
LOC: RAD 09:44
PROVIDERS: PCP Family Medicine; Referring Provider Physical Medicine & Rehabilitation; Visit Provider Physical Medicine & Rehabilitation
DX: M51.17 Intervertebral disc disorders with radiculopathy, lumbosacral region (principal); M48.07 Spinal stenosis, lumbosacral region
CPT/HCPCS: 62323; 99152; J0702; J1100; J2250

== ENCOUNTER → 2021-08-31 07:12 | Outpatient (CLI) | payer MEDICARE, OTHER, SELFPAY ==
[2020-04-13 10:44] VITALS: BMI 22.6
[2021-08-31 09:07] LABS: Alanine Aminotransferase 33 IU/L (<35); Albumin 3.7 g/dL (3.5-5.0); Albumin Globulin Ratio 2.1 (1.0-2.8); Alkaline Phosphatase 40 U/L (38-126); Aspartate Aminotransferase 35 IU/L (14-36); BUN Creatinine Ratio 18.9 (6-22); Bilirubin Total 0.3 mg/dL (0.2-1.3); Blood Urea Nitrogen 17 mg/dL (7-17); Calcium 8.8 mg/dL (8.4-10.2); Carbon Dioxide 28 mmol/L (22-32); Chloride 105 mmol/L (98-107); Estimated Glomerular Filt Rate > 60 mL/min (>60); Globulin 1.8 g/dL (1.7-4.1); Glucose 81 mg/dL (80-110); HEMOLYSIS < 15 (0-50); Sodium 137 mmol/L (137-145); Total Protein 5.5 g/dL (6.3-8.2)
== END ==
PROVIDERS: PCP Family Medicine; Referring Provider Internal Medicine Rheumatology; Visit Provider Internal Medicine Rheumatology
DX: Z79.899 Other long term (current) drug therapy (principal); M05.79 Rheumatoid arthritis with rheumatoid factor of multiple sites without organ or systems involvement
CPT/HCPCS: 36415; 80053

== ENCOUNTER 2021-10-22 08:37 | Emergency (ER) | payer MEDICARE, OTHER, SELFPAY ==
[2020-04-13 10:44] VITALS: BMI 22.6
[2021-10-22] VITALS (11 sets, daily range): BP systolic 103–114; BP diastolic 53–63; PULSE 54–77; RESP 17–18; TEMP 36.7; O2SAT 93–100; BMI 20.1
[2021-10-22 09:09] LABS: COVID19 -Nasal RAPID Negative (Negative)
--- NOTE | 2021-10-22 10:34 | ED_ITS ---
HPI - URI/Sore Throat General Chief Complaint: Upper Respiratory Symptoms Stated Complaint: thinks she has Bronchitis Time Seen by Provider: 10/22/21 10:28 Source: patient Mode of arrival: Ambulatory History of Present Illness HPI Narrative: Patient is a 66-year-old female with history of rheumatoid arthritis presenting today with 2 weeks of a cough. She states that her friend who was at the end of an illness came to visit and then both she and her boyfriend got ill. She has no shortness of breath. She has a nonproductive cough. She just feels kind of weak and fatigued. She says she has taken multiple COVID tests able all been negative. Related Data Home Medications Medication Instructions Recorded Confirmed acyclovir 800 mg tablet 800 mg PO TID 12/26/20 hydroxychloroquine 200 mg tablet 200 mg PO BID 05/11/21 folic acid 1 mg tablet 2 mg PO DAILY 08/08/21 methotrexate sodium 2.5 mg tablet 2.5 mg PO QWEEK 08/08/21 prednisone 5 mg tablet 5 mg PO DAILY 08/08/21 Previous Rx's Medication Instructions Recorded acetaminophen 325 mg tablet 650 mg PO Q6HR PRN Pain, Mild 05/08/19 (1-3) #40 tabs duloxetine 30 mg capsule,delayed 60 mg PO DAILY #180 caps 07/04/21 release varicella-zoster glycoE [id number] 0.5 ml IM ONCE #1 ea 07/31/21 adj(PF) 50 mcg/0.5 mL IM susp, kit (Shingrix (PF)) gabapentin 100 mg capsule 200 mg PO DAILY #30 caps 08/08/21 methotrexate sodium 2.5 mg tablet 15 mg PO QWEEK #1 tab 08/08/21 gabapentin 300 mg capsule 300 mg PO TID nerve pain #180 caps 08/20/21 diazepam 10 mg tablet (Valium) 10 mg PO .COMPLEX PRN 1-2 prior to 08/21/21 MRI and for possible steroid flare #10 tabs tramadol 50 mg tablet 50 mg PO BID PRN pain #20 tabs 08/21/21 trazodone 50 mg tablet See Rx Instructions .Route 10/08/21 .COMPLEX #90 tabs Allergies Allergy/AdvReac Type Severity Reaction Status Date / Time codeine [CODEINE] AdvReac Intermediate Out of Verified 08/08/21 08:57 body experience Sulfa (Sulfonamide AdvReac Intermediate Out of Verified 08/08/21 08:57 Antibiotics) body [SULFA (SULFONAMIDE experience ANTIBIOTICS)] Review of Systems Review of Systems Narrative: GENERAL: Denies chills, fatigue, malaise, fever, sweats, travel HEENT: Denies sinus pain, ear pain, sore throat, difficulty swallowing, neck pain RESPIRATORY: He HPI CARDIOVASCULAR: Denies chest pain, palpitations, orthopnea, edema GASTROINTESTINAL: Denies nausea, vomiting, abdominal pain, diarrhea, constipation, melena. : Denies dysuria, frequency, incontinence, hematuria, urinary retention, flank pain. MUSCULOSKELETAL: Denies weakness, joint pain, or bony pain SKIN: No rash, no erythema, no pruritus NEUROLOGIC: Denies weakness, dizziness, headache, numbness, change in speech, confusion PSYCHIATRIC: No concerning psychosocial issues. 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) Ovarian cyst (~1974) Plantar warts (~1976) Reactive depression (05/10/16) Rheumatoid arthritis Surgical History Anesthesia History of intestinal surgery (~1996) History of tonsillectomy (~1976) S/P spinal surgery (~2019) Status post hysterectomy (~1996) Family History Brother Age: 77 Cancer Heart disease Father Diabetes mellitus Heart disease Hypertension High cholesterol Mother TB (tuberculosis) Grandfather Heart disease Social History marital status: household members: none occupational status: employed Smoking Status: Never smoker second hand exposure: No alcohol intake: current substance use type: marijuana Smoking Status: Never smoker alcohol intake frequency: holidays/special occasions only Substance Use Type: does not use Exam Initial Vital Signs Initial Vital Signs: Vital Signs Pulse Rate 77 10/22/21 08:41 Pulse Oximetry 98 10/22/21 08:41 GENERAL: Alert pleasant 66-year-old female and in no acute distress. HEENT: Head atraumatic,EOMI, pupils reactive, face symmetric, moist mucous membranes CARDIOVASCULAR: Regular rate and rhythm without murmurs, rubs or gallops. RESPIRATORY: Breath sounds equal bilaterally, no wheezes rales or rhonchi. ABDOMEN: Soft, nontender. Normoactive bowel sounds all 4 quadrants. No guarding or rebound. EXTREMITIES: Normal range of motion, no clubbing or edema. Neurovascularly intact NEUROLOGICAL: Alert and oriented x4 SKIN: Warm, dry, no laceration, no petechiae, no rashes or lesions. Course Orders Ordered: ED Orders 10/22/21 10:34 Chest [XR chest 2V] Stat Discontinued Medications Albuterol (Albuterol Hfa Prepack) 1 box MISC SEEINSTR ONE Stop: 10/22/21 10:36 Last Admin: 10/22/21 10:49 Dose: 1 box Documented By: MARGARET Vital Signs Vital signs: Vital Signs - 8 hr 10/22/21 10:56 10/22/21 10:30 10/22/21 11:00 Pulse Rate 61 54 L Respiratory Rate Blood Pressure Pulse Oximetry 99 99 100 Oxygen Delivery Method Room Air 10/22/21 11:30 10/22/21 11:41 Pulse Rate 61 58 L Respiratory Rate 18 Blood Pressure 114/63 Pulse Oximetry 99 100 Oxygen Delivery Method Room Air MDM - URI/Sore Throat Lab Data Labs: Lab Results 10/22/21 Range/Units 08:14 SARS-CoV-2 (PCR) Negative (Negative) Imaging Data Chest x-ray: Radiologist's Impression: Signed Patient: Mai Mohan MR#: [id number] : 1955 Acct:[id number] Age/Sex: 66 / F Date of Service: 10/22/21 Loc: ED Accession Number: [id number] ?? Procedure: XR chest 2V Ordering Provider: Oxana Mike D.O. PROCEDURE:? XR CHEST 2V ? INDICATIONS:? cough x 2 weeks ? TECHNIQUE:? 2 views of the chest were acquired.? ? COMPARISON:? None. ? FINDINGS:? ? Surgical changes and devices:? None.? ? Lungs and pleura:? Lungs are clear.? No pleural effusions or pneumothorax.? ? Mediastinum:? Mediastinal contours are normal.? Heart size is normal.? ? Bones and chest wall:? No suspicious bony abnormalities.? Soft tissues appear unremarkable.? ? IMPRESSION:? No acute cardiopulmonary abnormality. ? ? Dictated by: aZch Haley M.D. on 10/22/2021 at 10:01? [facility] Narrative Medical decision making narrative: Patient again is COVID negative she has no signs of respiratory distress her x- ray is clear. Likely a post bronchitic cough. Only. She is given albuterol inhaler and spacer. Patient overall appears well. Symptoms are consistent with infectious like etiology. At this time no need for any further workup. Discharge Plan Departure Patient Disposition: Home Clinical Impression: Bronchitis Instructions: Acute Bronchitis Activity Restrictions/Additional Instructions: *You have been diagnosed with bronchitis *What to do: At this time there is no evidence of pneumonia on her x-ray. No need for antibiotics. This is likely caused from virus. Continue hydration. May use inhaler if needed it may help your cough *Continue to take medications as directed Albuterol 1-2 puffs every 4 hours if needed for coughing or shortness of breath *Follow up with your primary care provider in 2-3 days or call [phone] *Return to ER if you should have increasing shortness of breath, chest pain cough or any new, worsening or concerning symptoms Prescriptions: No Action acyclovir 800 mg tablet 800 mg PO TID Label Comments: Take at beginning of outbreak for 2 days hydroxychloroquine 200 mg tablet 200 mg PO BID duloxetine 30 mg capsule,delayed release(DR/EC) 60 mg PO DAILY Qty: 180 1RF Shingrix (PF) 50 mcg/0.5 mL suspension for reconstitution 0.5 ml IM ONCE Qty: 1 0RF Rx Instructions: as a single dose, repeat in 2-6 mos gabapentin 300 mg capsule 300 mg PO TID Qty: 180 0RF Rx Instructions: Increase dose to TID with 300mg and can also use the 100mg to increase dose. trazodone 50 mg tablet See Rx Instructions .ROUTE .COMPLEX Qty: 90 0RF Dose Instruction: TAKE 1 TABLET BY MOUTH AT BEDTIME NEEDED FOR INSOMNIA Rx Instructions: TAKE 1 TABLET BY MOUTH AT BEDTIME NEEDED FOR INSOMNIA acetaminophen 325 mg Tablet 650 mg PO Q6HR PRN (Reason: Pain, Mild (1-3)) Qty: 40 0RF diazepam [Valium] 10 mg tablet 10 mg PO .COMPLEX MDD 3 tabs PRN (Reason: 1-2 prior to MRI and for possible steroid flare) Qty: 10 0RF Rx Instructions: 10 mg PO PRN; tramadol 50 mg tablet 50 mg PO BID PRN (Reason: pain) Qty: 20 0RF methotrexate sodium 2.5 mg tablet 2.5 mg PO QWEEK methotrexate sodium 2.5 mg tablet 15 mg PO QWEEK Qty: 1 0RF gabapentin 100 mg capsule 200 mg PO DAILY Qty: 30 0RF prednisone 5 mg tablet 5 mg PO DAILY folic acid 1 mg tablet 2 mg PO DAILY Label Comments: TAKE 1 TABLET BY MOUTH DAILY Referrals: Kathleen Winkler DO [Primary Care Provider] - Visit Report Forms: Patient Portal/API
--- NOTE | 2021-10-22 10:34 | DI.RAD.S_ITS ---
PROCEDURE: XR CHEST 2V INDICATIONS: cough x 2 weeks TECHNIQUE: 2 views of the chest were acquired. COMPARISON: None. FINDINGS: Surgical changes and devices: None. Lungs and pleura: Lungs are clear. No pleural effusions or pneumothorax. Mediastinum: Mediastinal contours are normal. Heart size is normal. Bones and chest wall: No suspicious bony abnormalities. Soft tissues appear unremarkable. IMPRESSION: No acute cardiopulmonary abnormality. Dictated by: Zach Haley M.D. on 10/22/2021 at 10:01 Approved by: Zach Haley M.D. on 10/22/2021 at 10:01
[2021-10-22] MEDS: ALBUTEROL HFA PREPACK 1 BOX MISC (10:49)
== END 2021-10-22 11:41 | disposition home or self-care (01) ==
PROVIDERS: Emergency Provider Emergency Medicine; PCP Family Medicine
DX: J40 Bronchitis, not specified as acute or chronic (principal); Z20.822 Contact with and (suspected) exposure to COVID-19
CPT/HCPCS: 71046; 87635; 99281; 99283; C9803

== ENCOUNTER → 2021-11-05 14:34 | Outpatient (CLI) | payer MEDICARE, OTHER, SELFPAY ==
[2020-04-13 10:44] VITALS: BMI 22.6
== END ==
PROVIDERS: PCP Family Medicine; Referring Provider Family Medicine; Visit Provider Family Medicine
DX: Z78.0 Asymptomatic menopausal state (principal); M85.89 Other specified disorders of bone density and structure, multiple sites
CPT/HCPCS: 77080

== ENCOUNTER → 2021-11-23 12:52 | Outpatient (CLI) | payer MEDICARE, OTHER, SELFPAY ==
[2020-04-13 10:44] VITALS: BMI 22.6
--- NOTE | 2021-11-23 | DI.MG.S_ITS ---
BILATERAL DIGITAL SCREENING MAMMOGRAM 3D/2D WITH CAD: 11/23/2021 CLINICAL: Routine screening. Family history of breast cancer. Comparison is made to exams dated: 11/13/2020 mammogram, 11/13/2019 mammogram, 10/13/2018 mammogram, and 10/07/2017 mammogram - . There are scattered fibroglandular elements in both breasts. Current study was also evaluated with a Computer Aided Detection (CAD) system. No significant masses, calcifications, or other findings are seen in either breast. There has been no significant interval change. IMPRESSION: NEGATIVE There is no mammographic evidence of malignancy. A 1 year screening mammogram is recommended. Based on the Tyrer Cuzick model (a risk assessment model) the patient's lifetime risk is 7.4% and her 10 year risk is 3.7%. According to the ACR, ACS, and NCCN guidelines, an annual breast MRI exam along with mammogram is recommended if the patient's lifetime risk is 20% or greater. This exam was interpreted at Station ID: [id number]. NOTE: For mammograms, a report in lay terms will be sent to the patient. Approximately 15% of breast malignancies will not be visualized mammographically. In the management of a palpable breast mass, a negative mammogram must not discourage biopsy of a clinically suspicious lesion. Electronically Signed By: Ra sandoval/china:11/23/2021 17:16:13 letter sent: Normal Exam ACR BI-RADS Category 1: Negative [id number]
== END ==
PROVIDERS: PCP Family Medicine; Referring Provider Family Medicine; Visit Provider Family Medicine
DX: Z12.31 Encounter for screening mammogram for malignant neoplasm of breast (principal); Z80.3 Family history of malignant neoplasm of breast
CPT/HCPCS: 77063; 77067

== ENCOUNTER → 2021-12-06 07:08 | Outpatient (CLI) | payer MEDICARE, OTHER, SELFPAY ==
[2020-04-13 10:44] VITALS: BMI 22.6
[2021-12-06 09:53] LABS: Alanine Aminotransferase 54 IU/L (<35); Albumin 4.1 g/dL (3.5-5.0); Albumin Globulin Ratio 2.4 (1.0-2.8); Alkaline Phosphatase 49 U/L (38-126); Aspartate Aminotransferase 50 IU/L (14-36); Bilirubin Total 0.3 mg/dL (0.2-1.3); Blood Urea Nitrogen 19 mg/dL (7-17); Carbon Dioxide 25 mmol/L (22-32); Chloride 104 mmol/L (98-107); Estimated Glomerular Filt Rate > 60 mL/min (>60); Globulin 1.7 g/dL (1.7-4.1); Glucose 72 mg/dL (80-110); HEMOLYSIS < 15 (0-50); Potassium 4.5 mmol/L (3.4-5.1); Sodium 136 mmol/L (137-145); Total Protein 5.8 g/dL (6.3-8.2)
== END ==
PROVIDERS: PCP Family Medicine; Referring Provider Internal Medicine Rheumatology; Visit Provider Internal Medicine Rheumatology
DX: M05.79 Rheumatoid arthritis with rheumatoid factor of multiple sites without organ or systems involvement (principal)
CPT/HCPCS: 36415; 80053

== ENCOUNTER → 2021-12-27 06:56 | Outpatient (CLI) | payer MEDICARE, OTHER, SELFPAY ==
[2020-04-13 10:44] VITALS: BMI 22.6
[2021-12-27 08:44] LABS: Alanine Aminotransferase 41 IU/L (<35); Albumin 4.1 g/dL (3.5-5.0); Albumin Globulin Ratio 2.2 (1.0-2.8); Alkaline Phosphatase 51 U/L (38-126); Aspartate Aminotransferase 50 IU/L (14-36); BUN Creatinine Ratio 20.5 (6-22); Bilirubin Total 0.2 mg/dL (0.2-1.3); Blood Urea Nitrogen 18 mg/dL (7-17); Calcium 9.2 mg/dL (8.4-10.2); Carbon Dioxide 24 mmol/L (22-32); Chloride 108 mmol/L (98-107); Estimated Glomerular Filt Rate > 60 mL/min (>60); Globulin 1.9 g/dL (1.7-4.1); Glucose 47 mg/dL (80-110); HEMOLYSIS < 15 (0-50); Potassium 4.4 mmol/L (3.4-5.1); Sodium 141 mmol/L (137-145)
== END ==
PROVIDERS: PCP Family Medicine; Referring Provider Internal Medicine Rheumatology; Visit Provider Internal Medicine Rheumatology
DX: M05.79 Rheumatoid arthritis with rheumatoid factor of multiple sites without organ or systems involvement (principal); Z79.899 Other long term (current) drug therapy
CPT/HCPCS: 36415; 80053

== ENCOUNTER → 2022-03-08 10:14 | Outpatient (CLI) | payer MEDICARE, OTHER, SELFPAY ==
[2020-04-13 10:44] VITALS: BMI 22.6
[2022-03-08 14:26] LABS: Appearance Urine UA CLEAR; Bilirubin Urine UA NEGATIVE (NEGATIVE); Color Urine UA YELLOW; Glucose Urine UA NEGATIVE (Negative); Ketones Urine UA NEGATIVE (NEGATIVE); Leukocyte Esterase Urine UA NEGATIVE (NEGATIVE); Nitrite Urine UA NEGATIVE (Negative); Occult Blood Urine UA TRACE-INTACT (Negative); Protein Urine UA NEGATIVE (Negative); Urobilinogen Urine UA 0.2 E.U./dL (0.2)
== END ==
PROVIDERS: PCP Family Medicine; Visit Provider Family Medicine
DX: R30.0 Dysuria (principal)
CPT/HCPCS: 81003

== ENCOUNTER → 2022-08-05 06:44 | Outpatient (CLI) | payer MEDICARE, OTHER, SELFPAY ==
[2022-06-11 13:59] VITALS: BMI 22.6
[2022-08-05 08:38] LABS: Add Manual Diff / Slide Review NO; Basophils Absolute Auto 0 /uL (0-100); Basophils Percent Auto 0.9 % (0-2); Eosinophils Absolute Auto 100 /uL (0-450); Eosinophils Percent Auto 2.9 % (2-4); Hematocrit 39.7 % (36-46); Hemoglobin 13.6 g/dL (12.0-16.0); Lymphocytes Absolute Auto 2400 /uL (1100-4500); Lymphocytes Percent Auto 49.2 % (25-40); Mean Corpuscular HGB Conc 34.3 % (30-36); Mean Corpuscular Hemoglobin 31.2 PG (26-34); Monocytes Absolute Auto 300 /uL (0-900); Monocytes Percent Auto 6.5 % (3-14); Neutrophils Absolute Auto 2000 /uL (1500-7000); Neutrophils Percent Auto 40.5 % (50-75); Platelet Count 234 X10^3/uL (150-400); Red Blood Cell Count 4.36 X10^6/uL (4.0-5.2); Red Cell Distribution Width 12.6 % (11.6-14.8); White Blood Cell Count 4.9 X10^3/uL (4.5-11.0)
[2022-08-05 09:11] LABS: Alanine Aminotransferase 39 IU/L (<35); Albumin 4.1 g/dL (3.5-5.0); Albumin Globulin Ratio 1.6 (1.0-2.8); Alkaline Phosphatase 47 U/L (38-126); Aspartate Aminotransferase 50 IU/L (14-36); BUN Creatinine Ratio 18.8 (6-22); Bilirubin Total 0.5 mg/dL (0.2-1.3); Blood Urea Nitrogen 18 mg/dL (7-17); Calcium 9.4 mg/dL (8.4-10.2); Carbon Dioxide 26 mmol/L (22-32); Chloride 107 mmol/L (98-107); Cholesterol 215 mg/dL (140-199); Estimated Glomerular Filt Rate > 60 mL/min (>60); Globulin 2.5 g/dL (1.7-4.1); Glucose 79 mg/dL (80-110); HDL Cholesterol 69 mg/dL (40-60); HEMOLYSIS < 15 (0-50); LDL Cholesterol Calculated 125 mg/dL (<100); Sodium 139 mmol/L (137-145); Total Protein 6.6 g/dL (6.3-8.2); Triglycerides 103 mg/dL (35-150)
[2022-08-05 09:22] LABS: Vitamin D 25 Hydroxy (D3) 61.4 ng/mL (30.0-100.0)
== END ==
PROVIDERS: PCP Family Medicine; Referring Provider Family Medicine; Visit Provider Family Medicine
DX: E78.5 Hyperlipidemia, unspecified (principal); M85.80 Other specified disorders of bone density and structure, unspecified site; M06.9 Rheumatoid arthritis, unspecified
CPT/HCPCS: 36415; 80053; 80061; 82306; 85025

== ENCOUNTER → 2022-08-29 10:53 | Outpatient (CLI) | payer MEDICARE, OTHER, SELFPAY ==
[2022-06-11 13:59] VITALS: BMI 22.6
[2022-08-29 11:57] LABS: Erythrocyte Sedimentation Rate 7 MM/HR (0-20)
[2022-08-29 12:35] LABS: C-Reactive Protein Quant < 0.5 mg/dL (<1.0)
[2022-08-29 12:37] LABS: Rheumatoid Factor 10.7 IU/mL (<12.0)
[2022-09-01 16:48] LABS: CCP Antibodies IgG/IgA 4 units (0-19)
== END ==
PROVIDERS: PCP Family Medicine; Referring Provider Internal Medicine Rheumatology; Visit Provider Internal Medicine Rheumatology
DX: M06.9 Rheumatoid arthritis, unspecified (principal)
CPT/HCPCS: 36415; 85651; 86140; 86200; 86430

== ENCOUNTER → 2022-11-11 14:49 | Outpatient (CLI) | payer MEDICARE, OTHER, SELFPAY ==
[2022-11-01 09:20] VITALS: BMI 22.6
--- NOTE | 2022-11-11 14:50 | DI.NM.S_ITS ---
PROCEDURE: NM EXERCISE TREADMILL NON NUC COMPARISON: None INDICATIONS: Atypical chest pain FINDINGS: Rest ECG sinus rhythm. Juvenal protocol 9:46, maximum heart rate 148 bpm (97% peak predicted), maximum blood pressure 168/75, 10.1 METS, VIOLET -59%. Exercise ECG sinus tachycardia, no ST segment changes or arrhythmias. The patient did not complain of exercise-induced chest pain. IMPRESSION: Low risk study. No evidence of exercise-induced ischemia or arrhythmia. Normal hemodynamic response. Excellent exercise capacity. Dictated by: Sharron Maurer D.O. on 11/11/2022 at 17:09 Approved by: Sharron Maurer D.O. on 11/11/2022 at 17:10
== END ==
PROVIDERS: PCP Family Medicine; Referring Provider Family Medicine; Visit Provider Family Medicine
DX: R07.89 Other chest pain (principal)
CPT/HCPCS: 93017

== ENCOUNTER → 2022-12-30 07:55 | Outpatient (CLI) | payer MEDICARE, OTHER, SELFPAY ==
[2022-11-01 09:20] VITALS: BMI 22.6
--- NOTE | 2022-12-30 | DI.MG.S_ITS ---
BILATERAL DIGITAL SCREENING MAMMOGRAM 3D/2D WITH CAD: 12/30/2022 CLINICAL: Routine screening. Family history of breast cancer. Comparison is made to exams dated: 11/23/2021 mammogram, 11/13/2020 mammogram, and 11/13/2019 mammogram - [facility]. There are scattered areas of fibroglandular density in both breasts (category b / 25%-50% glandular tissue). Current study was also evaluated with a Computer Aided Detection (CAD) system. No significant masses, calcifications, or other findings are seen in either breast. There has been no significant interval change. IMPRESSION: NEGATIVE There is no mammographic evidence of malignancy. A 1 year screening mammogram is recommended. Based on the Tyrer Cuzick model (a risk assessment model) the patient's lifetime risk is 7.0% and her 10 year risk is 3.7%. According to the ACR, ACS, and NCCN guidelines, an annual breast MRI exam along with mammogram is recommended if the patient's lifetime risk is 20% or greater. This exam was interpreted at Station ID: [id number]. NOTE: For mammograms, a report in lay terms will be sent to the patient. Approximately 15% of breast malignancies will not be visualized mammographically. In the management of a palpable breast mass, a negative mammogram must not discourage biopsy of a clinically suspicious lesion. Electronically Signed By: Delano crane/china:12/30/2022 09:19:36 letter sent: Normal Exam ACR BI-RADS Category 1: Negative [id number]
== END ==
PROVIDERS: PCP Family Medicine; Referring Provider Family Medicine; Visit Provider Family Medicine
DX: Z12.31 Encounter for screening mammogram for malignant neoplasm of breast (principal); Z80.3 Family history of malignant neoplasm of breast
CPT/HCPCS: 77063; 77067

== ENCOUNTER → 2023-05-29 08:54 | Outpatient (CLI) | payer MEDICARE, OTHER, SELFPAY ==
[2022-11-01 09:20] VITALS: BMI 22.6
--- NOTE | 2023-05-29 08:55 | DI.MRI.S_ITS ---
PROCEDURE: MR LUMBAR SPINE WO CON INDICATIONS: LUMBAR STENOSIS W/NEUROGENIC CLAUDICATION TECHNIQUE: Noncontrast sagittal T1 spin echo and T2 fast echo, sagittal STIR, and T2 fast spin echo through the lumbar spine. In cases with scoliosis, additional coronal T2 fast spin echo may be performed. COMPARISON: [facility], MR, MR LUMBAR SPINE WO CON, 03/28/2020, 14:20. FINDINGS: Image quality: Excellent. Alignment and Curvature: Minimal anterolisthesis of L4 on L5. Bone Marrow: L5-S1 posterior spinal fusion and discectomy. Marrow is of normal overall signal. No acute vertebral body compression fractures. Spinal Cord: Conus medullaris terminates at the L2 level. Visualized cord demonstrates normal signal and size. Paraspinous Soft Tissues: No paravertebral masses. T12-L1: Normal appearance. L1-L2: Normal appearance. L2-L3: Disc desiccation and posterior disc bulge. Facet arthropathy. Mild central canal stenosis and mild bilateral neural foraminal stenosis. L3-L4: Disc desiccation and posterior disc bulge. Facet arthropathy and thickening of ligamentum flavum. Epidural lipomatosis. Mild central canal stenosis and mild bilateral neural foraminal stenosis is unchanged. L4-L5: Disc desiccation and mild disc bulge. Facet arthropathy and thickening of ligamentum flavum. Epidural lipomatosis. Mild to moderate central canal stenosis is mildly progressed. Mild bilateral neural foraminal stenosis is stable. L5-S1: Postoperative changes. No central canal stenosis. Mild bilateral neural foraminal stenosis is stable. IMPRESSION: 1. Mild progression of degenerative changes at L4-5 with new minimal anterolisthesis and mild to moderate central canal stenosis. 2. Stable degenerative changes at other levels status post L5-S1 posterior spinal fixation and discectomy. Dictated by: Donnie Messer M.D. on 05/29/2023 at 10:24 Approved by: Donnie Messer M.D. on 05/29/2023 at 10:29
== END ==
PROVIDERS: PCP Family Medicine; Referring Provider Orthopaedic Surgery Orthopaedic Surgery of the Spine; Visit Provider Orthopaedic Surgery Orthopaedic Surgery of the Spine
DX: M47.816 Spondylosis without myelopathy or radiculopathy, lumbar region (principal); M47.817 Spondylosis without myelopathy or radiculopathy, lumbosacral region; M48.062 Spinal stenosis, lumbar region with neurogenic claudication; Z98.1 Arthrodesis status
CPT/HCPCS: 72148

== ENCOUNTER → 2023-07-03 11:12 | Outpatient (CLI) | payer MEDICARE, OTHER, SELFPAY ==
[2022-11-01 09:20] VITALS: BMI 22.6
[2023-07-03 12:26] LABS: C-Reactive Protein Quant 0.5 mg/dL (<1.0); Rheumatoid Factor 12.5 IU/mL (<12.0)
[2023-07-03 14:04] LABS: Erythrocyte Sedimentation Rate 8 MM/HR (0-20)
[2023-07-09 14:43] LABS: CCP Antibodies IgG/IgA 4 units (0-19)
== END ==
LOC: LAB 11:14
PROVIDERS: PCP Family Medicine; Referring Provider Internal Medicine Rheumatology; Visit Provider Internal Medicine Rheumatology
DX: M25.50 Pain in unspecified joint (principal)
CPT/HCPCS: 36415; 85651; 86140; 86200; 86430

== ENCOUNTER 2023-07-15 13:53 | Outpatient (CLI) | payer MEDICARE, OTHER, SELFPAY ==
[2022-11-01 09:20] VITALS: BMI 22.6
[2023-07-15] VITALS (7 sets, daily range): BP systolic 109–127; BP diastolic 56–83; PULSE 50–62; RESP 16–23; TEMP 36.3; O2SAT 95–100
--- NOTE | 2023-07-15 14:30 | DI.RAD.S_ITS ---
PROCEDURE: PAIN L/S TRANSFORAMINAL INJECT INDICATIONS: SPONDYLOSIS COMPARISON: [facility], , PAIN L/S TRANSFORAMINAL INJECT, 04/25/2020, 15:08. FINDINGS: Fluoroscopic spot filming was performed to verify placement of spinal needles at the left L4 nerve root level(s), as labeled on the films. IMPRESSION: Imaging guidance provided for nerve root block procedure performed by the referring interventional pain physician Dictated by: Jasvir Santos M.D. on 07/16/2023 at 7:38 Approved by: Jasvir Santos M.D. on 07/16/2023 at 7:39
[2023-07-15] MEDS: MIDAZOLAM 2 MG/2 ML VIAL IV (15:22)
[2023-07-15] MEDS: DEXAMETHASONE 10 MG/ML VIAL INJ (15:26)
[2023-07-15] MEDS: BETAMETHASONE 30 MG/5 ML MDV 6 MG INJ (15:26)
[2023-07-15] MEDS: iopamidoL 15 ML VIAL 3 ML INJ (15:27)
[2023-07-15] MEDS: BUPIVACAINE 0.25% (PF) VIAL 2 ML INJ (15:27)
--- NOTE | 2023-07-15 15:39 | P.PCN_ITS ---
Date/Time/Diagnoses Date of procedure: 07/15/23 Time of procedure: 15:39 Pre-procedure diagnosis: 1. FORAMINAL STENOSIS WITH LE SYMPTOMS Post-procedure diagnosis: same Procedure Notes Procedure: 1. FLUOROSCOPICALLY GUIDED CONTRAST CONTROLLED TRANSFORAMINAL EPIDURAL STEROID INJECTION - LEFT L4/5 Indications: Mai is referred by Dr. Lara for treatment of Foraminal Stenosis with Left LE Symptoms Physician: Mono Bustillo Total Fluoroscopy time (seconds): 6 Total sedation minutes: 10 Complications: none Procedure in detail & Post-procedure care: FINDINGS Foraminal Nerve Root Compression secondary to disc disease and facet hypertrophy DESCRIPTION OF PROCEDURE Following review of allergy and review of potential side effects and complications, including, but not necessarily limited to, infection, allergic reaction, local tissue breakdown, stroke, temporary or permanent nerve injury, paralysis, and possible , the patient indicated that the patient understood and agreed to proceed. An informed consent document was signed by the patient, witnessed by a nurse, and placed in the patient's chart. Additionally, other treatment options including medications, modalities, and physical therapy were reviewed with the patient. After review of previous anaesthesic history and IV conscious sedation the patient was deemed safe to proceed with today?s procedure with IV conscious sedation as ASA class II designation. Safety time-out was performed to confirm patient ID, procedure to be performed and site of procedure. IV sedation was accomplished with a combination of 2mg of Versed administered by the RN after DO order, titrated to patient comfort during the course of the procedure while the patient remained responsive to all verbal commands In the prone position following sterile prep and drape of the lumbar region, the left L4/5 posterior neuroforamen was identified fluoroscopically. The skin was anesthetized via a 25-gauge 1.5-inch needle with 1% lidocaine solution. At this point, a 25-gauge 3.5-inch spinal needle was atraumatically introduced and advanced under fluoroscopic guidance through the posterior left L4/5 neuroforamen to approximately the anterior aspect of the canal. Depth was confirmed on lateral view. Following negative aspiration, injection of approximately 1.5 cc of Isovue 200 under live fluoroscopy in the AP view confirmed excellent flow along the nerve root, into the epidural space without vascular or intrathecal uptake observed Radiological data, including multiple fluoroscopic views of the lumbosacral spine, reveal a spinal needle at the left L4/5 posterior neuroforamen. Subsequent views show flow of contrast material flowing superiorly and inferiorly along the nerve root confirming epidural flow. Subsequently, a test dose of 1.5 cc of 1% lidocaine solution was administered and patient was observed for two minutes for signs or symptoms of complications, including abdominal pain, shortness of breath, bilateral upper or lower extremity weakness, nausea and vomiting, prior to steroid injection. At this point, a total of 2cc or 10mg of dexamethasone and 6mg of betamethasone was injected without incident. The procedure tolerated the procedure well without signs or symptoms of complications prior to transfer to the recovery area continued monitoring without incident. The patient was then transferred to the recovery area where they were observed for an appropriate time after the injection. The patient reported a VAS score of 8 prior to the procedure and a post- procedure VAS of 1. POST OP INSTRUCTIONS The patient was provided a Pain Log to continue to record their response to the target-specific procedure prior to follow-up visit with their referring physician. Additionally, specific post-injection care instructions and a contact number to our office were provided if concerns arise regarding possible complications associated with the procedure are suspected.
== END 2023-07-15 15:55 | disposition home or self-care (01) ==
LOC: RAD 13:54
PROVIDERS: PCP Family Medicine; Referring Provider Physical Medicine & Rehabilitation; Visit Provider Physical Medicine & Rehabilitation
DX: M48.061 Spinal stenosis, lumbar region without neurogenic claudication (principal); M51.16 Intervertebral disc disorders with radiculopathy, lumbar region; M47.26 Other spondylosis with radiculopathy, lumbar region
CPT/HCPCS: 64483; 99152; J0702; J1100; J2250; J3490

== ENCOUNTER → 2023-07-30 06:45 | Outpatient (CLI) | payer MEDICARE, OTHER, SELFPAY ==
[2022-11-01 09:20] VITALS: BMI 22.6
[2023-07-30 09:30] LABS: Alanine Aminotransferase 33 IU/L (<35); Albumin 3.9 g/dL (3.5-5.0); Albumin Globulin Ratio 1.9 (1.0-2.8); Alkaline Phosphatase 53 U/L (38-126); Aspartate Aminotransferase 42 IU/L (14-36); BUN Creatinine Ratio 19.6 (6-22); Bilirubin Total 0.6 mg/dL (0.2-1.3); Blood Urea Nitrogen 20 mg/dL (7-17); Calcium 9.7 mg/dL (8.4-10.2); Carbon Dioxide 26 mmol/L (22-32); Chloride 110 mmol/L (98-107); Cholesterol 231 mg/dL (140-199); Estimated Glomerular Filt Rate > 60 mL/min (>60); Globulin 2.1 g/dL (1.7-4.1); Glucose 79 mg/dL (80-110); HDL Cholesterol 60 mg/dL (40-60); HEMOLYSIS < 15 (0-50); LDL Cholesterol Calculated 144 mg/dL (<100); Potassium 4.5 mmol/L (3.4-5.1); Sodium 142 mmol/L (137-145); Triglycerides 136 mg/dL (35-150)
[2023-07-30 09:36] LABS: TSH w/ Reflex to FT4 5.11 uIU/mL (0.47-4.68)
[2023-07-30 18:11] LABS: Hep C Virus Ab w/Reflex Quant NEGATIVE s/c (NEGATIVE)
== END ==
LOC: LAB 06:46
PROVIDERS: PCP Family Medicine; Referring Provider Family Medicine; Visit Provider Family Medicine
DX: Z00.00 Encounter for general adult medical examination without abnormal findings (principal); E78.5 Hyperlipidemia, unspecified; F32.9 Major depressive disorder, single episode, unspecified; H02.401 Unspecified ptosis of right eyelid
CPT/HCPCS: 36415; 80053; 80061; 84439; 84443; 86803

== ENCOUNTER → 2023-11-20 06:54 | Outpatient (CLI) | payer MEDICARE, OTHER, SELFPAY ==
[2022-11-01 09:20] VITALS: BMI 22.6
[2023-11-20 07:48] LABS: Add Manual Diff / Slide Review NO; Basophils Absolute Auto 0 /uL (0-100); Basophils Percent Auto 0.8 % (0-2); Eosinophils Absolute Auto 300 /uL (0-450); Eosinophils Percent Auto 5.4 % (2-4); Hematocrit 37.7 % (36-46); Hemoglobin 12.9 g/dL (12.0-16.0); Lymphocytes Absolute Auto 2600 /uL (1100-4500); Lymphocytes Percent Auto 47.9 % (25-40); Mean Corpuscular HGB Conc 34.3 % (30-36); Mean Corpuscular Hemoglobin 31.5 PG (26-34); Mean Corpuscular Volume 91.8 fL (80-100); Monocytes Absolute Auto 500 /uL (0-900); Monocytes Percent Auto 8.7 % (3-14); Neutrophils Absolute Auto 2000 /uL (1500-7000); Neutrophils Percent Auto 37.2 % (50-75); Platelet Count 221 X10^3/uL (150-400); Red Cell Distribution Width 12.5 % (11.6-14.8); White Blood Cell Count 5.4 X10^3/uL (4.5-11.0)
[2023-11-20 08:06] LABS: HEMOLYSIS < 15 (0-50); Iron 112 ug/dL (37-170)
[2023-11-20 08:17] LABS: Percent Iron Saturation 37 % (15-50); Total Iron Binding Capacity 299 ug/dL (265-497); Transferrin 241 mg/dL (206-381)
== END ==
PROVIDERS: PCP Family Medicine; Referring Provider Family Medicine; Visit Provider Family Medicine
DX: D64.9 Anemia, unspecified (principal)
CPT/HCPCS: 36415; 83540; 83550; 85025

== ENCOUNTER → 2024-01-05 08:10 | Outpatient (CLI) | payer MEDICARE, OTHER, SELFPAY ==
[2022-11-01 09:20] VITALS: BMI 22.6
--- NOTE | 2024-01-05 08:11 | DI.MG.S_ITS ---
BILATERAL DIGITAL SCREENING MAMMOGRAM 3D/2D WITH CAD: 01/05/2024 CLINICAL: Routine screening. Family history of breast cancer. Comparison is made to exams dated: 12/30/2022 mammogram, 11/23/2021 mammogram, and 11/13/2020 mammogram - [facility]. There are scattered areas of fibroglandular density (category b / 25%-50% glandular tissue). Current study was also evaluated with a Computer Aided Detection (CAD) system. No significant masses, calcifications, or other findings are seen in either breast. There has been no significant interval change. IMPRESSION: NEGATIVE There is no mammographic evidence of malignancy. A 1 year screening mammogram is recommended. Based on the Tyrer Cuzick model (a risk assessment model) the patient's lifetime risk is 6.7% and her 10 year risk is 3.7%. According to the ACR, ACS, and NCCN guidelines, an annual breast MRI exam along with mammogram is recommended if the patient's lifetime risk is 20% or greater. This exam was interpreted at Station ID: [id number]. NOTE: For mammograms, a report in lay terms will be sent to the patient. Approximately 15% of breast malignancies will not be visualized mammographically. In the management of a palpable breast mass, a negative mammogram must not discourage biopsy of a clinically suspicious lesion. Electronically Signed By: Brandy Pool M.D., Ph.D. marcos/china:01/05/2024 09:28:01 letter sent: Normal Exam ACR BI-RADS Category 1: Negative [id number]
== END ==
PROVIDERS: PCP Family Medicine; Referring Provider Family Medicine; Visit Provider Family Medicine
DX: Z12.31 Encounter for screening mammogram for malignant neoplasm of breast (principal); Z80.3 Family history of malignant neoplasm of breast
CPT/HCPCS: 77063; 77067

== ENCOUNTER → 2024-05-24 10:34 | Outpatient (CLI) | payer MEDICARE, OTHER, SELFPAY ==
[2022-11-01 09:20] VITALS: BMI 22.6
--- NOTE | 2024-05-24 10:37 | DI.RAD.S_ITS ---
PROCEDURE: XR LUMBAR SPINE 2-3V INDICATIONS: BACK PAIN TECHNIQUE: 3 views of the lumbar spine were acquired. COMPARISON: [facility], , XR LUMBAR SPINE MIN 4V, 11/13/2020, 8:27. FINDINGS: Lumbar spine curvature and alignment: Grade 1 L4-5 spondylolisthesis due to degenerate facet disease appreciated. The remaining lumbar spine is anatomically aligned Bones: There are no osseous abnormalities. Disc spaces: L5-S1 anterior/posterior fusion provided by interbody spacer , pedicle screws short interbody struts. Alignment is anatomic. Soft tissues: No soft tissue swelling, calcification or mass. IMPRESSION: Grade 1 L4-5 spondylolisthesis. Solid anterior/posterior L5-S1 fusion Dictated by: Guillaume Lama M.D. on 05/25/2024 at 9:04 Approved by: Guillaume Lama M.D. on 05/25/2024 at 9:05
--- NOTE | 2024-05-24 10:38 | DI.RAD.S_ITS ---
PROCEDURE: XR HIP W PEL IF DONE LT 2V INDICATIONS: PAIN TECHNIQUE: 2 views of the hip were acquired. COMPARISON: [facility], , XR HIP W PEL IF DONE LT 2V, 02/07/2020, 15:20. FINDINGS: Bones: There are no osseous abnormalities. SI and hip joints: Normal in width and alignment without arthritic change Soft tissues: No soft tissue swelling, calcification or mass. IMPRESSION: Normal pelvis Dictated by: Guillaume Lama M.D. on 05/25/2024 at 9:03 Approved by: Guillaume Lama M.D. on 05/25/2024 at 9:04
== END ==
PROVIDERS: PCP Family Medicine; Referring Provider Chiropractor; Visit Provider Chiropractor
DX: M51.26 Other intervertebral disc displacement, lumbar region (principal); M16.0 Bilateral primary osteoarthritis of hip; M43.16 Spondylolisthesis, lumbar region; Z98.1 Arthrodesis status
CPT/HCPCS: 72100; 73502

== ENCOUNTER → 2024-08-06 06:53 | Outpatient (CLI) | payer MEDICARE, OTHER, SELFPAY ==
[2022-11-01 09:20] VITALS: BMI 22.6
[2024-08-06 07:44] LABS: Add Manual Diff / Slide Review NO; Basophils Absolute Auto 0 /uL (0-100); Basophils Percent Auto 0.7 % (0-2); Eosinophils Absolute Auto 400 /uL (0-450); Eosinophils Percent Auto 5.3 % (2-4); Hematocrit 37.4 % (36-46); Hemoglobin 12.8 g/dL (12.0-16.0); Lymphocytes Absolute Auto 2900 /uL (1100-4500); Lymphocytes Percent Auto 43.1 % (25-40); Mean Corpuscular HGB Conc 34.3 % (30-36); Mean Corpuscular Hemoglobin 31.9 PG (26-34); Mean Corpuscular Volume 93.1 fL (80-100); Monocytes Absolute Auto 500 /uL (0-900); Monocytes Percent Auto 7.1 % (3-14); Neutrophils Absolute Auto 2900 /uL (1500-7000); Neutrophils Percent Auto 43.8 % (50-75); Platelet Count 224 X10^3/uL (150-400); Red Blood Cell Count 4.02 X10^6/uL (4.0-5.2); Red Cell Distribution Width 12.5 % (11.6-14.8); White Blood Cell Count 6.7 X10^3/uL (4.5-11.0)
[2024-08-06 08:04] LABS: Alanine Aminotransferase 54 IU/L (<35); Albumin 4.4 g/dL (3.5-5.0); Albumin Globulin Ratio 2.1 (1.0-2.8); Alkaline Phosphatase 54 U/L (38-126); Aspartate Aminotransferase 77 IU/L (14-36); BUN Creatinine Ratio 19.1 (6-22); Bilirubin Total 0.6 mg/dL (0.2-1.3); Blood Urea Nitrogen 21 mg/dL (7-17); Calcium 9.9 mg/dL (8.4-10.2); Carbon Dioxide 24 mmol/L (22-32); Chloride 106 mmol/L (98-107); Cholesterol 235 mg/dL (140-199); Estimated Glomerular Filt Rate 55 mL/min (>60); Globulin 2.1 g/dL (1.7-4.1); Glucose 90 mg/dL (80-110); HDL Cholesterol 50 mg/dL (40-60); HEMOLYSIS < 15 (0-50); LDL Cholesterol Calculated 146 mg/dL (<100); Potassium 5.2 mmol/L (3.4-5.1); Sodium 138 mmol/L (137-145); Total Protein 6.5 g/dL (6.3-8.2); Triglycerides 193 mg/dL (35-150)
[2024-08-06 08:34] LABS: TSH w/ Reflex to FT4 3.79 uIU/mL (0.47-4.68)
== END ==
PROVIDERS: PCP Family Medicine; Referring Provider Family Medicine; Visit Provider Family Medicine
DX: Z00.00 Encounter for general adult medical examination without abnormal findings (principal); E78.5 Hyperlipidemia, unspecified; M85.80 Other specified disorders of bone density and structure, unspecified site; N95.2 Postmenopausal atrophic vaginitis; R41.3 Other amnesia
CPT/HCPCS: 36415; 80053; 80061; 84443; 85025

== ENCOUNTER → 2024-08-20 07:48 | Outpatient (CLI) | payer MEDICARE, OTHER, SELFPAY ==
[2022-11-01 09:20] VITALS: BMI 22.6
--- NOTE | 2024-08-20 07:53 | DI.RAD.S_ITS ---
PROCEDURE: XR LUMBAR SPINE 6V W BENDING INDICATIONS: LOW BACK PAIN TECHNIQUE: 7 views of the lumbar spine acquired, including flexion and extension views. COMPARISON: [facility], MR, MR LUMBAR SPINE WO CON, 05/29/2023, 9:25. [facility], CR, XR LUMBAR SPINE 2-3V, 05/24/2024, 10:42. FINDINGS: Bones: 5 nonrib-bearing vertebrae are present. Hardware status post bilateral posterior pedicle screw fixation have the L5-S1 level and interbody disc spacer without evidence of complication. Anterolisthesis of L4 on L5 measures 1.0 cm. The L4 vertebral body is diffusely sclerotic. . No vertebral body compression fractures. No suspicious bony lesions. Soft tissues: Overlying bowel gas pattern is normal. No suspicious soft tissue calcifications. Flexion/extension: There is normal range of motion, with preserved normal alignment. IMPRESSION: Postsurgical change without evidence of hardware complication and anterolisthesis of L4 on L5. No evidence of acute osseous abnormality. Moderate diffuse increased sclerosis of the L4 vertebral body. Dictated by: Facundo Perdue M.D. on 08/21/2024 at 17:43 Approved by: Facundo Perdue M.D. on 08/21/2024 at 23:37
== END ==
PROVIDERS: PCP Family Medicine; Visit Provider Physical Medicine & Rehabilitation
DX: M43.16 Spondylolisthesis, lumbar region (principal); M54.50 Low back pain, unspecified; Z98.1 Arthrodesis status
CPT/HCPCS: 72114

== ENCOUNTER → 2024-10-04 06:36 | Outpatient (CLI) | payer MEDICARE, OTHER, SELFPAY ==
[2022-11-01 09:20] VITALS: BMI 22.6
[2024-10-04 08:25] LABS: BUN Creatinine Ratio 21.6 (6-22); Blood Urea Nitrogen 19 mg/dL (7-17); Carbon Dioxide 23 mmol/L (22-32); Chloride 107 mmol/L (98-107); Cholesterol 202 mg/dL (140-199); Estimated Glomerular Filt Rate > 60 mL/min (>60); Glucose 76 mg/dL (70-99); HDL Cholesterol 51 mg/dL (40-60); HEMOLYSIS < 15 (0-50); LDL Cholesterol Calculated 126 mg/dL (<100); Potassium 5.2 mmol/L (3.4-5.1); Sodium 136 mmol/L (137-145); Triglycerides 127 mg/dL (35-150)
[2024-10-04 08:46] LABS: Creatinine Urine Random 58.29 mg/dL
[2024-10-04 08:55] LABS: Microalbumin Urine Random < 0.6 mg/dL (0-1.6)
== END ==
PROVIDERS: PCP Family Medicine; Referring Provider Family Medicine; Visit Provider Family Medicine
DX: E78.5 Hyperlipidemia, unspecified (principal); N28.9 Disorder of kidney and ureter, unspecified
CPT/HCPCS: 36415; 80048; 80061; 82043; 82570

== ENCOUNTER → 2024-10-11 06:52 | Outpatient (CLI) | payer MEDICARE, OTHER, SELFPAY ==
[2022-11-01 09:20] VITALS: BMI 22.6
--- NOTE | 2024-10-11 06:54 | DI.US.S_ITS ---
PROCEDURE: US ABDOMEN LIMITED INDICATIONS: elev LFT TECHNIQUE: Real-time scanning was performed of the abdominal and retroperitoneal organs, with image documentation. COMPARISON: None. FINDINGS: Liver: Liver is normal in size and homogeneous in echotexture. Gallbladder: No gallstones. No wall thickening. No pericholecystic edema. Negative sonographic Blakely's sign. Biliary ducts: Intrahepatic bile ducts are non-dilated. Extrahepatic bile duct caliber measures 5 mm. Normal is 6-7 mm or less in diameter, or 10 mm or less post-cholecystectomy. Pancreas: Visualized portions of the pancreas are sonographically normal. Miscellaneous: No free abdominal fluid. IMPRESSION: No findings to explain the patient's elevated LFTs. Normal hepatic echogenicity. No gallbladder pathology. Dictated by: Renato Boothe M.D. on 10/11/2024 at 10:06 Approved by: Renato Boothe M.D. on 10/11/2024 at 10:08
== END ==
LOC: US 06:54
PROVIDERS: PCP Family Medicine; Referring Provider Family Medicine; Visit Provider Family Medicine
DX: R79.89 Other specified abnormal findings of blood chemistry (principal)
CPT/HCPCS: 76705

== ENCOUNTER → 2024-10-12 09:43 | Outpatient (CLI) | payer MEDICARE, OTHER, SELFPAY ==
[2022-11-01 09:20] VITALS: BMI 22.6
[2024-10-13 12:11] LABS: Fecal Immunochemical Test Negative (Negative)
== END ==
PROVIDERS: PCP Family Medicine; Referring Provider Family Medicine; Visit Provider Family Medicine
DX: Z12.11 Encounter for screening for malignant neoplasm of colon (principal)
CPT/HCPCS: 82274

== ENCOUNTER → 2025-01-05 07:39 | Outpatient (CLI) | payer MEDICARE, OTHER, SELFPAY ==
[2022-11-01 09:20] VITALS: BMI 22.6
--- NOTE | 2025-01-05 07:42 | DI.MG.S_ITS ---
MM screening mammo BI: 01/05/2025. BI-RADS: 1 CLINICAL: 69-year old female for bilateral screening mammogram. Tyrer-Cuzick lifetime risk of 4.6%. No personal or first-degree family history of breast cancer. Current reported family history of breast cancer: maternal aunt. PRIOR EXAMS 01/05/2024, 12/30/2022, 11/23/2021, 11/13/2020. MAMMOGRAPHY TECHNIQUE: 2D and 3D (tomosynthesis) digital mammographic views obtained, with additional images as needed for full coverage. Current study was also evaluated with a Computer Aided Detection (CAD) system. DENSITY B. There are scattered areas of fibroglandular density. MAMMOGRAPHY FINDINGS Bilateral: No suspicious mass, asymmetry, microcalcification, or other abnormality seen. IMPRESSION: * No evidence of malignancy. RECOMMENDATIONS Bilateral * Annual screening mammography. OVERALL ASSESSMENT CATEGORY BI-RADS-1: Negative. The [employer] recommends annual screening mammography beginning at age 40 for women with average risk of breast cancer. ELECTRONICALLY SIGNED: Archana Canada M.D. on 01/05/2025 at 10:45:16 AM PT Interpreting Station ID: [id number]
== END ==
LOC: MAMMO 07:42
PROVIDERS: PCP Family Medicine; Referring Provider Family Medicine; Visit Provider Family Medicine
DX: Z12.31 Encounter for screening mammogram for malignant neoplasm of breast (principal); Z80.3 Family history of malignant neoplasm of breast
CPT/HCPCS: 77063; 77067

== ENCOUNTER 2025-04-11 06:22 | Emergency (ER) | payer MEDICARE, OTHER, SELFPAY ==
[2022-11-01 09:20] VITALS: BMI 22.6
[2025-04-11] VITALS (10 sets, daily range): BP systolic 111–131; BP diastolic 58–73; PULSE 46–83; RESP 13–22; O2SAT 98–100; BMI 20.9
--- OUTSIDE RECORDS SUMMARY | 2025-04-11 06:27 | XMS_ITS | Clinical Summary ---
Author Organization [facility] Address [address] [place] [address] Care Team Providers Care Supervisor Travel Trailer Name Role Phone Pcp, None Selected Primary Care Provider Unavail able Allergies Active Allergy Reactions Criticality Noted Date Comments Codeine Other (see comments) 11/22/2010 kind go out of my mind. Other worldy, not really here. Sulfa (Sulfonamide Antibiotics) Other (see comments) 11/22/2010 kind go out of my mind. Other worldy, not really here. Medications traZODone (DESYREL) 50 mg tablet TK SS T PO QHS PRN FOR INSOMNIA 3 05/06/2018 Active multivit-min/ir on/folic/lutein (MULTIVITAMIN WOMEN 50 PLUS ORAL) Take by mouth Active DULoxetine (CYMBALTA) 30 mg capsule Take 60 mg by mouth 06/07/2020 Active gabapentin (NEURONTIN) 300 mg capsule Take 300 mg by mouth 3 (three) times a day 06/10/2020 Active mupirocin (BACTROBAN) 2 % ointmentIndicat ions:Wound of foot Apply twice daily until healed 30 g 1 07/19/2020 Active acyclovir (ZOVIRAX) 800 mg tabletIndicatio ns:Herpes simplex Take 800mg three times daily x 2 days as needed for flares 30 tablet 2 07/19/2020 Active folic acid (FOLVITE) 1 mg tablet Take 1,000 mcg by mouth daily 06/27/2021 Active methotrexate 2.5 mg tablet TAKE 4 TABLETS BY MOUTH EVERY WEEK FOR 2 WEEKS THEN TAKE 6 TABLETS BY MOUTH EVERY WEEK 06/27/2021 Active hydrOXYchloroQU INE (PLAQUENIL) 200 mg tablet Take 200 mg by mouth 2 (two) times a day 07/13/2021 Active predniSONE (DELTASONE) 5 mg tablet 06/27/2021 Active traMADoL (ULTRAM) 50 mg tablet Take 50 mg by mouth 2 (two) times a day as needed for pain 06/13/2021 Active moxifloxacin (VIGAMOX) 0.5 % ophthalmic solution 05/02/2021 Active Active Problems Problem Noted Date Diagnosed Date Incontinence of feces 10/06/2019 Overview (10/06/2019): Added automatically from request for surgery [id number] Immunizations Immunization Administration Dates Next Due FLU 36+Mos Multi-dose (Flulaval,Fluzone)Quad 01/11/2019,01/06/2015,01/31/2014 FLU PF 6+Mos Quad (Fluzone, FluLaval, Fluarix) 02/10/2018,01/03/2017 FLU PF 6+Mos Trivalent 0.5ML (Fluzone, FluLaval, Fluarix) 02/23/2021,02/01/2013,12/19/2011,2002 Influenza Quadrivalent, Cont ains Preservative 01/11/2019,01/06/2015,01/31/2014 Influenza Whole 03/25/2003 Influenza, Seasonal, Injectable 02/01/2013,12/18 Live Zoster (Zostavax) 02/03/2013 Moderna SARS-CoV-2 Vaccine Monovalent 02/23/2021 ,08/09/2020,07/11/2020 Tdap (Boostrix,Adacel) 04/20/2014 Family History Medical History Relation Comments Heart disease Brother Heart disease Father Breast cancer Mother's Sister Heart disease Paternal Grandfather Stroke Paternal Grandfather Relation Status Comments Brother Father Mother's Sister Paternal Grandfather Social History Tobacco Use Types Packs/Day Years Used Date Smoking Tobacco: Never Smokeless Tobacco: Never Alcohol Use Standard Drinks/Week Comments Yes 1 (1 standard drink = 0.6 oz pur e alcohol) Comments Unknown Sex and Gender Information Value Date Recorded Sex Assigned at Not on file Legal Sex Female 9:07 AM PDT Gender Identity Not on file Sexual Orientation Not on file Last Filed Vital Signs Vital Sign Reading Time Taken Comments Blood Pressure 104/64 07/23/2021 10:12 AM PDT Pulse 59 07/23/2021 10:12 AM PDT Temperature 36.4 C (97.5 F) 04/02/2021 1:58 PM PST Respiratory Rate - - Oxygen Saturation 100% 07/23/2021 10: 12 AM PDT Inhaled Oxygen Concentration - - Weight 57.1 kg (125 lb 14.4 oz) 02/20/2021 2:39 PM PDT Height 167.6 cm (5' 6) 02/20/2021 2:39 PM PDT Body Mass Index 20.32 02/20/2021 2:39 PM PDT Plan of Treatment Health Maintenance Due Date Last Done Comments Bone Density Scan 1955 Depression Screening (PHQ-2) 1967 Colorectal Cancer Screening (Colonoscopy) 08/10/2000 Colorectal Cancer Screening (FOBT) 08/10/2000 Colorectal Cancer Screening (Fecal DNA) 08/10/2000 Colorectal Cancer Screening Combined 08/10/2000 HM Pneumococcal Adult 50+ (1 of 1 - PCV) 08/10/2005 Zoster Vaccines (2 of 3) 03/31/2013 02/03/2013 Fall Risk Screening 08/10/2020 DTaP,Tdap,and Td Vaccines (2 - Td or Tdap) 04/20/2024 04/20/2014 COVID-19 Vaccine (4 - 2024- season) 2024 02/23/2021, 08/09/2020, 07/11/2020 Influenza Vaccine (#1) 2025 , 01/11/2019, 01/11/2019, Additional history exists RSV Patients Over 60 years OR qualifying ( Patients) (1 - 1-dose 75+ series) 08/10/2030 Breast Cancer Screening Discontinued 12/29/2012 Varicella Vaccines Discontinued 02/03/2013 HPV Vaccines Aged Out No longer eligi ble based on patient's age to complete this topic Hepatitis A Vaccines Aged Out No long er eligible based on patient's age to complete this topic Hepatitis B Vaccines Aged Out No long er eligible based on patient's age to complete this topic IPV Vaccines Aged Out No longer eligi ble based on patient's age to complete this topic MMR Vaccines Aged Out No longer eligi ble based on patient's age to complete this topic Insurance MEDICARE PART A AND B [facility] Care Teams Supervisor Travel Trailer Relationship Specialty Start Date End Date Pcp, None Selected PCP - General 08/05/24
--- NOTE | 2025-04-11 06:42 | DI.RAD.S_ITS ---
PROCEDURE: XR CHEST 1V INDICATIONS: Chest Pain TECHNIQUE: One view of the chest was acquired. COMPARISON: [facility], CR, XR CHEST 2V, 10/22/2021, 10:22. FINDINGS: Surgical changes and devices: None. Lungs and pleura: Lungs are clear. No pleural effusions or pneumothorax. Mediastinum: Mediastinal contours appear normal. Heart size is normal. Bones and chest wall: No suspicious bony lesions. Overlying soft tissues appear unremarkable. IMPRESSION: No acute cardiopulmonary abnormality is seen. Approved by: Tee Osullivan M.D. on 04/11/2025 at 7:51
--- NOTE | 2025-04-11 06:42 | EKG_ITS ---
[id number], [place] [address] Test Date: 2025-04-11 Pat Name: Mai Mohan Department: Room: Gender: Female Independent Living Specialist: EVITA GUAMAN : 1955 Requested By: Order Number: [id number] Reading MD: Guillaume Francois MD Measurements Intervals Anderson Rate: 59 P: 65 CT: 138 QRS: 59 QRSD: 80 T: 62 QT: 452 QTc: 447 Interpretive Statements Sinus bradycardia Low voltage QRS Electronically Signed On 04-12-2025 7:40:08 PST by Guillaume Francois MD
[2025-04-11] MEDS: ASPIRIN 81 MG CHEW TAB 324 MG PO (06:51)
[2025-04-11 07:19] LABS: Add Manual Diff / Slide Review NO; Hematocrit 41.4 % (36-46); Hemoglobin 14.1 g/dL (12.0-16.0); Lymphocytes Absolute Auto 2400 /uL (1100-4500); Mean Corpuscular HGB Conc 34.1 % (30-36); Mean Corpuscular Hemoglobin 31.4 PG (26-34); Mean Corpuscular Volume 92.1 fL (80-100); Platelet Count 206 X10^3/uL (150-400)
[2025-04-11 07:27] LABS: INR 1.0 (0.9-1.3); Prothrombin Time 11.0 SECONDS (9.4-12.5)
[2025-04-11 07:29] LABS: PTT Partial Thromboplastin Tim 29 SECONDS (25.1-36.5)
--- NOTE | 2025-04-11 07:32 | ED.CHESTPAIN ---
HPI - Chest Pain General Chief Complaint: Chest Pain Stated Complaint: Symptoms of a heart attack, on and off 2 weeks Time Seen by Provider: 04/11/25 07:11 Source: patient, RN notes reviewed and old records reviewed Mode of arrival: Ambulatory Limitations: no limitations History of Present Illness HPI narrative: 69-year-old female history of anxiety/depression and chronic pain presents with complaint of chest/epigastric tightness on and off for the past several weeks. Patient notes she felt like she sort of has a cold she never had fevers or a cough but her head felt heavy and she felt fatigued, states she has had episodes intermittently do not seem to be associated with anything specific we will sometimes feel little short of breath with them. She denies any nausea or vomiting. No issues with bowel movements, no swelling in extremities, no urinary symptoms. She notes little bit of a sore throat. Patient states she had a dream overnight where she was feeling short of breath and had that tightness and then woke up with the symptoms which is what prompted her to come in. She states home medications are gabapentin, Tylenol as needed, citalopram, tramadol PRN she does not take any anticoagulants. States she had a hysterectomy age 40 subsequent infection and required bowel resection from obstruction. Reports allergies to codeine, sulfa and hydrocodone. No tobacco, 1 alcoholic drink weekly, no recreational drugs. Notes her father had an ME, brother has a cardiac stent around age 70, grandfather had strokes. Her primary care physician is Dr. Lara. She had an exercise stress test in 2022. Related Data Home Medications ?Medication ?Instructions ?Recorded ?Confirmed trazodone 50 mg tablet 50 mg PO ONCE PM PRN insomnia 10/07/24 03/10/25 acetaminophen 500 mg capsule 3,000 mg PO DAILY 03/10/25 03/10/25 Previous Rx's ?Medication ?Instructions ?Recorded citalopram 40 mg tablet (Celexa) 40 mg PO DAILY #100 tabs 07/06/24 gabapentin 300 mg capsule 300 mg PO TID PRN pain #270 caps 08/30/24 estradiol 0.025 mg/24 hr 1 patch transdermal 2XW #24 ea 01/03/25 semiweekly transdermal patch tramadol 50 mg tablet 50 mg PO BID PRN pain #30 tabs 04/01/25 ifatfshy-hvqfvmodf-lwaohznul 3.5 3 drp otic (ear) Q6H 7 days #10 mL 04/07/25 mg/mL-10,000 unit/mL-1 % ear solution Allergies Allergy/AdvReac Type Severity Reaction Status Date / Time hydrocodone Allergy Intermediate ITCHING Verified 04/11/25 06:41 codeine (CODEINE) AdvReac Intermediate Out of Verified 04/11/25 06:41 body experience Sulfa (Sulfonamide AdvReac Intermediate Out of Verified 04/11/25 06:41 Antibiotics) (SULFA body (SULFONAMIDE ANTIBIOTICS)) experience Review of Systems Review of Systems ROS Unobtainable: All systems reviewed & are unremarkable except as noted in HPI and below Patient History Medical History Postmenopausal HRT (hormone replacement therapy) Hyperlipidemia Encounter for subsequent annual wellness visit (AWV) in Medicare patient Arthritis of carpometacarpal (CMC) joint of both thumbs Anxiety (~1984) Measles Glaucoma (~2006) Vertigo (~2009) Cataracts, bilateral (~2016) Herpes (~2016) Colon polyps (~2004) Osteopenia Degenerative tear of acetabular labrum Chronic back pain (~2017) Herniated nucleus pulposus, L4-5 Depression (~1984) Easy bruisability Hypotension Neck pain (~1991) Plantar warts (~1976) Mumps (~1964) Chicken pox (~1964) Ovarian cyst (~1974) Irregular menstrual cycle (~1973) Fibroids (~1989) Chlamydia (~1974) Abnormal Pap smear of cervix (~1974) Osteoarthritis of cervical spine (11/15/16) Reactive depression (05/10/16) Generalized anxiety disorder (05/10/16) Basal cell carcinoma (BCC) Surgical History S/P spinal surgery (~2019) Anesthesia History of intestinal surgery (~1996) Status post hysterectomy (~1996) History of tonsillectomy (~1976) Family History Brother Age: 81 Cancer Heart disease Hyperlipidemia Father Diabetes mellitus Heart disease Hypertension High cholesterol Mother TB (tuberculosis) Grandfather Heart disease Hyperlipidemia Hypertension Stroke Grandfather Cancer Grandmother No problems noted. Social History marital status: household members: none occupational status: employed second hand exposure: No alcohol intake: current substance use type: marijuana alcohol intake frequency: holidays/special occasions only Exam Narrative Exam Narrative: GENERAL: Alert and oriented x three, female in mild distress HEENT: Head normocephalic, atraumatic, EOMI, no nasal congestion, pupils reactive, face symmetric, moist mucous membranes NECK: Supple, full range of motion CARDIOVASCULAR: Regular rate and rhythm without murmurs, rubs or gallops. No edema bilateral lower extremities. RESPIRATORY: Breath sounds equal bilaterally, no wheezes rales or rhonchi. ABDOMEN: Soft, nontender. Normoactive bowel sounds all 4 quadrants. No guarding or rebound, rigidity, no mass : No CVA tenderness EXTREMITIES: Normal range of motion, no edema. Neurovascularly intact NEUROLOGICAL: Cranial nerves II through XII grossly intact. Moving all extremities SKIN: Warm, dry, no petechiae, no rashes or lesions. Initial Vital Signs Initial Vital Signs: Vital Signs Pulse Rate 59 L 04/11/25 06:33 Respiratory Rate 17 04/11/25 06:33 Pulse Oximetry 100 04/11/25 06:33 Scores HEART Score Heart Score history: Moderately Suspicious Heart Score EKG: Normal Heart Score Age: > or = 65 years old Heart Score risk factors: No known risk factors Heart Score troponin: < or = to normal limit Heart Score Total: 3 Course Orders Ordered: ED Orders 04/11/25 06:42 XR chest 1V Stat EKG-12 Lead Stat 04/11/25 07:08 Complete Blood Count AUTO DIFF Stat Comprehensive Metabolic Panel Stat Lipase Stat Magnesium Stat NT-proBNP (BNP-Adult 18+) Stat PTT Partial Thromboplastin Grant Stat Prothrombin Time INR Stat Troponin & CK Cardiac Panel Stat 04/11/25 07:50 EKG-12 Lead Stat 04/11/25 09:10 Trop I [Troponin I] Stat Discontinued Medications Aspirin (Aspirin 81 Mg Chew Tab) 324 mg PO NOW ONE Stop: 04/11/25 06:42 Last Admin: 04/11/25 06:51 Dose: 324 mg Documented By: YURIDIA Vital Signs Vital signs: Vital Signs - 8 hr 04/11/25 08:00 04/11/25 08:00 04/11/25 08:30 Pulse Rate 48 L 49 L Respiratory Rate 14 21 Blood Pressure 118/61 Pulse Oximetry 98 98 04/11/25 08:30 04/11/25 09:00 04/11/25 09:00 Pulse Rate 49 L Respiratory Rate 22 Blood Pressure 114/73 129/69 Pulse Oximetry 99 04/11/25 09:30 04/11/25 09:30 04/11/25 10:00 Pulse Rate 54 L 46 L Respiratory Rate 16 14 Blood Pressure 131/61 Pulse Oximetry 99 100 04/11/25 10:00 04/11/25 10:30 Pulse Rate 83 Respiratory Rate 20 Blood Pressure 123/65 125/65 Pulse Oximetry 98 MDM - Chest Pain Lab Data 04/11/25 07:08 04/11/25 07:08 Labs: Lab Results 04/11/25 04/11/25 Range/Units 07:08 09:10 WBC 5.5 (4.5-11.0) X10^3/uL RBC 4.50 (4.0-5.2) X10^6/uL Hgb 14.1 (12.0-16.0) g/dL Hct 41.4 (36-46) % MCV 92.1 (80-100) fL MCH 31.4 (26-34) PG MCHC 34.1 (30-36) % RDW 12.7 (11.6-14.8) % Plt Count 206 (150-400) X10^3/uL Neut % (Auto) 46.7 L (50-75) % Lymph % (Auto) 43.5 H (25-40) % Maries % (Auto) 7.7 (3-14) % Eos % (Auto) 1.3 L (2-4) % Baso % (Auto) 0.8 (0-2) % Neut # (Auto) 2600 (3287-6814) /uL Lymph # (Auto) 2400 (6564-8460) /uL Maries # (Auto) 400 (0-900) /uL Eos # (Auto) 100 (0-450) /uL Baso # (Auto) 0 (0-100) /uL PT 11.0 (9.4-12.5) SECONDS INR 1.0 (0.9-1.3) APTT 29 (25.1-36.5) SECONDS Sodium 139 (137-145) mmol/L Potassium 4.0 (3.4-5.1) mmol/L Chloride 108 H (98-107) mmol/L Carbon Dioxide 22 (22-32) mmol/L BUN 19 H (7-17) mg/dL Creatinine 0.79 (0.52-1.04) mg/dL Estimated GFR > 60 (>60) mL/min BUN/Creatinine Ratio 24.1 H (6-22) Glucose 72 (70-99) mg/dL Calcium 9.6 (8.4-10.2) mg/dL Magnesium 2.2 (1.6-2.3) mg/dL Total Bilirubin 0.3 (0.2-1.3) mg/dL AST 43 H (14-36) IU/L ALT 28 (<35) IU/L Alkaline Phosphatase 58 (38-126) U/L Total Creatine Kinase 57 (30-135) U/L Troponin I < 0.012 < 0.012 (0.01-0.034) ng/mL NT-Pro-B Natriuret Pep < 20 (<125) pg/mL Total Protein 6.9 (6.3-8.2) g/dL Albumin 4.6 (3.5-5.0) g/dL Globulin 2.3 (1.7-4.1) g/dL Albumin/Globulin Ratio 2.0 (1.0-2.8) Lipase 166 (23-300) U/L MDM Narrative Medical decision making narrative: EKG shows sinus bradycardia rate of 59 GA 138 QRS 80 QTC of 447, no acute ST-elevation nonspecific change low-voltage QRS. Patient has prior from 10/21/2022, appears similar to today's with a rate of 57 bradycardic with sinus arrhythmia. EKG 2. Shows sinus bradycardia rate of 48 GA 156 QRS 84 QTC of [address]-elevation depression appreciated appears similar to prior from earlier today. Labs show normal white count, hemoglobin and platelets predominance of lymphocytes. Coags are negative, show chloride of 108 electrolytes are otherwise appropriate BUN 19 creatinine point 7 9, glucose is 72 AST is 43 but normal ALT bilirubin and lipase. Troponins less than 0.012 with a BNP of less than 20. Repeat troponins less than 0.012 Chest x-ray, shows no acute cardiopulmonary abnormality. Patient had aspirin 324 mg Patient is currently asymptomatic. heart score is 3. Discussed with the patient if she would like to stay for observation she prefers to discharge home. Did discuss my concerns about cardiac source. She has not ever seen Cardiology before but follows with Dr. Lara. She will reach out but we will also reach out today to help with follow up I asked that she take an aspirin 81 mg daily. Discharge Plan Departure Patient Disposition: Home Clinical Impression: Atypical chest pain Instructions: DI for Atypical Chest Pain Activity Restrictions/Additional Instructions: Follow up with Dr. Lara, call today to set up follow up. I would recommend that you take an aspirin 81 mg daily until you see your physician. Please return if you develop new chest pain, shortness of breath, any lightheadedness or passing out, persistent vomiting, new swelling of your extremities or other new or concerning changes. Prescriptions: No Action gabapentin 300 mg capsule 300 mg PO TID PRN (Reason: pain) Qty: 270 3RF tramadol 50 mg tablet 50 mg PO BID PRN (Reason: pain) Qty: 30 2RF kaemznuq-vrgpgxbvy-XV 3.5-10,000-1 mg/mL-unit/mL-% solution 3 drp otic (ear) Q6H 7 Days Qty: 10 0RF trazodone 50 mg tablet 50 mg PO ONCE PM PRN (Reason: insomnia) estradiol 0.025 mg/24 hr patch semiweekly 1 patch transdermal 2XW Qty: 24 3RF Rx Instructions: apply 1 patch for 3 days alternating with 1 patch for 4 days each week acetaminophen 500 mg capsule 3,000 mg PO DAILY citalopram [Celexa] 40 mg tablet 40 mg PO DAILY Qty: 100 3RF Referrals: Aparna Lara DO [Primary Care Provider, Family Practice] Stand Alone Forms: Patient Portal/API
[2025-04-11 07:35] LABS: Alanine Aminotransferase 28 IU/L (<35); Albumin 4.6 g/dL (3.5-5.0); Albumin Globulin Ratio 2.0 (1.0-2.8); Alkaline Phosphatase 58 U/L (38-126); Blood Urea Nitrogen 19 mg/dL (7-17); Calcium 9.6 mg/dL (8.4-10.2); Carbon Dioxide 22 mmol/L (22-32); Chloride 108 mmol/L (98-107); Creatine Kinase 57 U/L (30-135); Estimated Glomerular Filt Rate > 60 mL/min (>60); Globulin 2.3 g/dL (1.7-4.1); Glucose 72 mg/dL (70-99); HEMOLYSIS 17 (0-50); Lipase 166 U/L (23-300); Magnesium 2.2 mg/dL (1.6-2.3); Potassium 4.0 mmol/L (3.4-5.1); Sodium 139 mmol/L (137-145); Total Protein 6.9 g/dL (6.3-8.2)
[2025-04-11 07:47] LABS: NT-proBNP (BNP-Adult 18+) < 20 pg/mL (<125); Troponin I < 0.012 ng/mL (0.01-0.034)
--- NOTE | 2025-04-11 07:50 | EKG_ITS ---
[place] [id number] [place] [id number] Test Date: 2025-04-11 Pat Name: Mai Mohan Department: [facility] Room: Gender: Female [employer]: PIEDAD : 1955 Requested By: Order Number: [id number] Reading MD: Guillaume Francois MD Measurements Intervals [place] Rate: 48 P: 67 NC: 156 QRS: 49 QRSD: 84 T: 54 QT: 502 QTc: 448 Interpretive Statements Sinus bradycardia Low voltage QRS Electronically Signed On 04-12-2025 7:40:33 PST by Guillaume Francois MD
[2025-04-11 09:43] LABS: Troponin I < 0.012 ng/mL (0.01-0.034)
== END 2025-04-11 11:09 | disposition home or self-care (01) ==
PROVIDERS: Family Medicine; Emergency Provider Emergency Medicine; PCP Family Medicine
DX: R07.89 Other chest pain (principal); R53.83 Other fatigue; J02.9 Acute pharyngitis, unspecified
CPT/HCPCS: 36415; 71045; 80053; 82550; 83690; 83735; 83880; 84484; 85025; 85610; 85730; 93005; 93010; 99284